=== PATIENT | female | born 1990 ===

== ENCOUNTER 2017-01-22 21:16 | Emergency (ER) | payer SELFPAY ==
[2017-01-22 22:03] VITALS: BMI 33.2
[2017-01-22 22:15] VITALS: TEMP 98.2
--- NOTE | 2017-01-22 23:04 | ED PDOC ---
Arrival/HPI - General Chief Complaint: Abnormal Skin Integrity Time Seen by Provider: 01/22/17 22:58 Historian: Patient - History of Present Illness Narrative History of Present Illness (Text): 01/22/17 23:01 Susanne Mistry is a 26 year old female who presents to the emergency department complaining of diffuse erythematous, itchy hives since 3 pm today. States that she had multiple insect bites today, and is unsure if symptoms are related to that. No new foods, or new lotion. Denies any fever, chills, chest pain, throat fullness, difficulty swallowing, difficulty breathing, or any other complaints at this time. Time/Duration: Other (3pm today ) Symptom Onset: Gradual Severity Level: Mild Activities at Onset: Light Past Medical History - Provider Review Nursing Documentation Reviewed: Yes - Infectious Disease Hx of Infectious Diseases: None - Past Medical History Past Medical History: No Previous - Integumentary Hx Eczema: Yes - Psychiatric Hx Anxiety: Yes Hx Depression: No Hx Substance Use: No - Past Surgical History Past Surgical History: No Previous - Surgical History Other/Comment: MIGRAINE - Anesthesia Hx Anesthesia: No Hx Anesthesia Reactions: No Hx Malignant Hyperthermia: No - Suicidal Assessment Feels Threatened In Home Enviroment: No Family/Social History - Physician Review Nursing Documentation Reviewed: Yes Family/Social History: No Known Family HX Smoking Status: Heavy Smoker > 10 Cigarettes Daily Hx Alcohol Use: Yes Hx Substance Use: No Hx Substance Use Treatment: No Allergies/Home Meds Allergies/Adverse Reactions: Allergies Penicillins Allergy (Verified 10/26/15 18:54) RASH Review of Systems - Physician Review All systems were reviewed & negative as marked: Yes - Review of Systems Constitutional: Normal. absent: Fatigue, Fevers Respiratory: Normal. absent: SOB, Cough, Sputum Cardiovascular: Normal. absent: Chest Pain, Palpitations Gastrointestinal: Normal. absent: Abdominal Pain, Diarrhea, Nausea, Vomiting Skin: Rash (diffuse erythematous, itchy hives ) Neurological: Normal Physical Exam Vital Signs Reviewed: Yes Vital Signs Temp Pulse Resp BP Pulse Ox 01/22/17 23:22 82 17 115/70 99 01/22/17 21:17 98.2 F 86 18 112/61 100 Temperature: Afebrile Blood Pressure: Normal Pulse: Regular Respiratory Rate: Normal Appearance: Positive for: Well-Appearing, Non-Toxic, Comfortable Pain Distress: None Mental Status: Positive for: Alert and Oriented X 3 - Systems Exam Head: Present: Atraumatic, Normocephalic Pupils: Present: PERRL Conjunctiva: Present: Normal Mouth: Present: Moist Mucous Membranes Pharnyx: Present: Normal. No: ERYTHEMA, EXUDATE, TONSILS ENLARGED Respiratory/Chest: Present: Clear to Auscultation, Good Air Exchange. No: Respiratory Distress, Accessory Muscle Use Cardiovascular: Present: Regular Rate and Rhythm, Normal S1, S2. No: Murmurs Abdomen: Present: Normal Bowel Sounds. No: Tenderness, Distention, Peritoneal Signs Upper Extremity: Present: Normal Inspection. No: Cyanosis, Edema Lower Extremity: Present: Normal Inspection. No: Edema Neurological: Present: GCS=15, CN II-XII Intact, Speech Normal, Motor Func Grossly Intact, Normal Sensory Function Skin: Present: Warm, Dry, Rashes (erythematous urticaria ), Normal Color Psychiatric: Present: Alert, Oriented x 3, Normal Insight, Normal Concentration Medical Decision Making ED Course and Treatment: 01/22/17 23:05 Impression: A 26 year old female who presents to the emergency department complaining of diffuse hives since 3 pm today. Differential diagnosis : urticaria, allergic reaction, contact dermatitis Plan: -- Benadryl -- Pepcid -- Prednisone -- Reassess and disposition Progress Notes: On reevaluation, patient is resting comfortably in bed in no acute distress, patient is speaking in full sentences in no respiratory distress. Patient informed of likely diagnosis of urticaria versus possible allergic reaction. Patient advised to follow up with her PMD and was given referral to a crime scene examiner. Prescription for Benadryl, Pepcid and prednisone provided to the patient and advised to take medication as prescribed. Otherwise was instructed to return to the emergency room at any time for any new or worsening symptoms. Patient states she fully agrees with and understands discharge instructions. States that she agrees with the plan and disposition. Verbalized and repeated discharge instructions and plan. I have given the patient opportunity to ask any additional questions. - Medication Orders Current Medication Orders: Discontinued Medications Diphenhydramine HCl (Benadryl) 50 mg PO STAT STA Stop: 01/22/17 22:59 Last Admin: 01/22/17 23:09 Dose: 50 mg Famotidine (Pepcid) 40 mg PO STAT STA Stop: 01/22/17 22:59 Last Admin: 01/22/17 23:10 Dose: 40 mg Prednisone (Prednisone Tab) 60 mg PO STAT STA Stop: 01/22/17 22:59 Last Admin: 01/22/17 23:09 Dose: 60 mg - PA / QUALITY ASSURANCE MONITOR FINAL / Resident Statement / has reviewed & agrees with the documentation as recorded. Disposition/Present on Arrival - Present on Arrival Any Indicators Present on Arrival: No History of DVT/PE: No History of Uncontrolled Diabetes: No Urinary Catheter: No History of Decub. Ulcer: No History Surgical Site Infection Following: None - Disposition Have Diagnosis and Disposition been Completed?: Yes Diagnosis: Urticaria Disposition: HOME/ ROUTINE Disposition Time: 23:30 Patient Plan: Discharge Condition: STABLE Discharge Instructions (ExitCare): Urticaria (ED) Print Language: SWEDISH Additional Instructions: Thank you for letting us take care of you today. You were treated for urticaria. The emergency medical care you received today was directed at your acute symptoms. If you were prescribed any medication, please fill it and take as directed. It may take several days for your symptoms to resolve. Return to the Emergency Department if your symptoms worsen, do not improve, or if you have any other problems. Please contact your doctor in 2 days for re-evaluation and follow up. Bring any paperwork you were given at discharge with you along with any medications you are taking to your follow up visit. Our treatment cannot replace ongoing medical care by a primary care provider (PCP) outside of the emergency department. Thank you for allowing the [facility] team to be part of your care today. Prescriptions: DiphenhydrAMINE [Benadryl] 50 mg PO TID #30 cap Famotidine [Pepcid] 40 mg PO DAILY #20 tablet predniSONE [predniSONE Tab] 40 mg PO DAILY #8 tab Referrals: Mauri Love MD [Staff Provider] - Follow up with primary PCP,NO [Primary Care Provider] - Follow up with primary Forms: [employer] (Guinean), WORK NOTE
[2017-01-22 23:23] VITALS: BP 115/70; PULSE 82; RESP 17; O2SAT 99
== END 2017-01-22 23:23 | disposition home or self-care (01) ==
LOC: ED 21:16
DX: L50.9 Urticaria, unspecified (principal)

== ENCOUNTER 2017-05-05 22:11 | Observation (INO) | payer MEDICAID, OTHER ==
[2017-05-05 22:11] VITALS: BMI 33.2
[2017-05-05] MEDS ORDERED: Sodium Chloride 0.9% 1,000 ML IV STA (22:56)
--- NOTE | 2017-05-05 23:01 | ED PDOC ---
Arrival/HPI - General Chief Complaint: Back Pain Time Seen by Provider: 05/05/17 22:35 Historian: Patient - History of Present Illness Narrative History of Present Illness (Text): 05/05/17 22:51 Susanne Mistry is a 26 year old female who presents to the emergency department complaining of worsening symptoms of burning while urination, urinary frequency, bilateral back pain and flank pain for one week. Patient states that he experienced associated chills, some shortness of breath, some pink urine, and white vaginal discharge. Patient states that she has taken Monistat for symptoms to no relief. Patient denies any nausea, vomiting, diarrhea, or any other complaints at this time. Patient states that her last menstrual period was 04/14/17. PMD: none Time/Duration: 1 week Symptom Onset: Gradual Symptom Course: Worsening Severity Level: Mild Activities at Onset: Light Context: Home Past Medical History - Provider Review Nursing Documentation Reviewed: Yes - Infectious Disease Hx of Infectious Diseases: None - Past Medical History Past Medical History: No Previous - Integumentary Hx Eczema: Yes - Psychiatric Hx Anxiety: Yes Hx Depression: No Hx Substance Use: No - Past Surgical History Past Surgical History: No Previous - Surgical History Other/Comment: MIGRAINE - Anesthesia Hx Anesthesia: No Hx Anesthesia Reactions: No Hx Malignant Hyperthermia: No - Suicidal Assessment Feels Threatened In Home Enviroment: No Family/Social History - Physician Review Nursing Documentation Reviewed: Yes Family/Social History: No Known Family HX Smoking Status: Heavy Smoker > 10 Cigarettes Daily Hx Alcohol Use: Yes Hx Substance Use: No Hx Substance Use Treatment: No Allergies/Home Meds Allergies/Adverse Reactions: Allergies Penicillins Allergy (Verified 10/26/15 18:54) RASH Home Medications: Home Meds Medication Instructions Recorded Confirmed No Known Home Med 05/05/17 05/05/17 Review of Systems - Physician Review All systems were reviewed & negative as marked: Yes - Review of Systems Constitutional: absent: Fevers, Night Sweats Eyes: absent: Vision Changes ENT: absent: Hearing Changes Respiratory: SOB. absent: Cough Cardiovascular: absent: Chest Pain Gastrointestinal: absent: Abdominal Pain Genitourinary Female: Dysuria (burning whil urination), Frequency, Hematuria, Vaginal Discharge Musculoskeletal: Back Pain (bilateral flank pain) Skin: absent: Rash, Pruritis Neurological: absent: Headache, Dizziness Endocrine: absent: Diaphoresis Hemo/Lymphatic: absent: Adenopathy Psychiatric: absent: Depression Physical Exam Vital Signs Reviewed: Yes Vital Signs Temp Pulse Resp BP Pulse Ox 05/05/17 22:35 98.4 F 78 18 123/70 98 Temperature: Afebrile Blood Pressure: Normal Pulse: Regular Respiratory Rate: Normal Appearance: Positive for: Well-Appearing, Non-Toxic, Comfortable Pain Distress: None Mental Status: Positive for: Alert and Oriented X 3 - Systems Exam Head: Present: Atraumatic, Normocephalic Pupils: Present: PERRL Conjunctiva: Present: Normal Mouth: Present: Moist Mucous Membranes Pharnyx: Present: Normal. No: ERYTHEMA, EXUDATE Neck: Present: Normal Range of Motion Respiratory/Chest: Present: Clear to Auscultation, Good Air Exchange. No: Respiratory Distress, Accessory Muscle Use Cardiovascular: Present: Regular Rate and Rhythm, Normal S1, S2. No: Murmurs Abdomen: Present: Normal Bowel Sounds. No: Tenderness, Distention, Peritoneal Signs Back: Present: Normal Inspection. No: CVA Tenderness, Midline Tenderness Upper Extremity: Present: Normal Inspection. No: Cyanosis, Edema Lower Extremity: Present: Normal Inspection. No: Edema Neurological: Present: GCS=15, CN II-XII Intact, Speech Normal Skin: Present: Warm, Dry, Normal Color. No: Rashes Psychiatric: Present: Alert, Oriented x 3, Normal Insight, Normal Concentration Medical Decision Making ED Course and Treatment: 05/05/17 23:25 Impression: 26 year old female complaining of worsening symptoms of burning while urination , urinary frequency, bilateral flank pain for one week. Differential Diagnosis included but are not limited to: Plan: -- Abdomen and Pelvis CT w/ contrast -- Labs -- Toradol, Rocephin, and IV fluids -- Reassess and disposition Prior Visits: Notes and results from previous visits were reviewed. Patient was last seen in the emergency department on 01/22/2017 for diffuse erythematous, itchy hives for a few hours. Patient was discharged home. Progress Notes: 05/06/17 00:58 CT Abdomen and Pelvis Without Intravenous Contrast Creator : JUAN HAKNS FINDINGS: Lower thorax: The bilateral lung bases are clear. ABDOMEN: Liver: The liver is enlarged and demonstrates diffuse fatty infiltration. Gallbladder and bile ducts: No acute finding. No calcified stones. No intra-extrahepatic biliary ductal dilation. Pancreas: Limited evaluation secondary to the lack of intravenous contrast. Spleen: The spleen is markedly enlarged. Adrenals: No acute findings. Kidneys and ureters: No obstructing stones. No hydronephrosis. PELVIS: Bladder: No acute findings. Reproductive: No acute findings. Appendix: The appendix is of normal caliber (series 2, image 138; series 601 , image 54). ABDOMEN and PELVIS: Stomach and bowel: No acute findings. Peritoneum: No acute findings. Lymph nodes: Extensive retroperitoneal and mesenteric lymphadenopathy. Minimally enlarged lymph nodes are also identified in the pelvis. Vasculature: No aortic aneurysm. Bones: No acute fracture. IMPRESSION: No obstructive uropathy. Marked splenic enlargement along with retroperitoneal and mesenteric lymphadenopathy - findings worrisome for (possibly) a systemic lymphomatous disease, for which clinical correlation is needed. Fatty infiltration of the enlarged liver. 05/06/17 01:41 Patient with UTI and back pain. Blood work is unremarkable with urine showing UTI; given back pain - concern for possible renal colic. CT a/p ordered is showing findings concerning for possible lymphoma - will place patient on observation on med/surg for further eval and treatment. Discussed with Dr. Walden. - Lab Interpretations Lab Results: 05/05/17 23:30 05/05/17 23:30 Lab Results 05/05/17 23:30: Sodium 142, Potassium 4.0, Chloride 104, Carbon Dioxide 28, Anion Gap 14, BUN 18, Creatinine 0.8, Est GFR ( Amer) > 60, Est GFR (Non- Af Amer) > 60, Random Glucose 106, Calcium 9.3, Total Bilirubin 0.7, AST 30, ALT 34, Alkaline Phosphatase 50, Total Protein 8.8 H, Albumin 4.4, Globulin 4.4 , Albumin/Globulin Ratio 1.0 L, Lipase 69 05/05/17 23:30: WBC 5.4, RBC 3.81, Hgb 11.1 L, Hct 33.7 L, MCV 88.5, MCH 29.1, MCHC 32.9, RDW 13.6, Plt Count 148, MPV 10.3, Gran % 56.2, Lymph % (Auto) 29.2, Bates % (Auto) 10.1 H, Eos % (Auto) 3.9, Baso % (Auto) 0.6, Gran # 3.06, Lymph # 1.6, Bates # 0.6, Eos # 0.2, Baso # 0.03 05/05/17 22:44: Urine Color Light yellow, Urine Appearance Cloudy, Urine pH 6.0 , Ur Specific [place] 1.015, Urine Protein Trace H, Urine Glucose (UA) Negative , Urine Ketones Trace H, Urine Blood Small H, Urine Nitrate Negative, Urine Bilirubin Negative, Urine Urobilinogen 1.0 H, Ur Leukocyte Esterase Large H, Urine RBC 1 - 3, Urine WBC Tntc, Ur Epithelial Cells 1 - 3, Urine Bacteria Few I have reviewed the lab results: Yes - RAD Interpretation Radiology Orders: 05/05/17 22:55 ABD & PELVIS W/O PO OR IV CONT [CT] Stat - Medication Orders Current Medication Orders: Discontinued Medications Sodium Chloride (Sodium Chloride 0.9%) 1,000 mls @ 999 mls/hr IV .Q1H1M STA Stop: 05/05/17 23:56 Last Admin: 05/05/17 23:40 Dose: 999 mls/hr eMAR Start Stop Document 05/05/17 23:40 RON (Rec: 05/05/17 23:40 RON [id number]) Intravenous Solution Start Date 05/05/17 Start Time 23:40 Ceftriaxone Sodium (Rocephin 1 Gram Ivpb) 1 gm in 100 mls @ 200 mls/hr IV ONCE STA PRN Reason: Protocol Stop: 05/05/17 23:33 Last Admin: 05/06/17 01:18 Dose: 200 mls/hr eMAR Start Stop Document 05/06/17 01:18 RON (Rec: 05/06/17 01:18 RON [id number]) Intravenous Solution Start Date 05/06/17 Start Time 01:18 End Date 05/06/17 End time 01:48 Total Infusion Time 30 Ketorolac Tromethamine (Toradol) 30 mg IVP STAT STA Stop: 05/05/17 22:57 Last Admin: 05/05/17 23:40 Dose: 30 mg MAR Pain Assessment Document 05/05/17 23:40 RON (Rec: 05/05/17 23:40 RON [id number]) Pain Reassessment Is this a pain reassessment? No IVP Administration Document 05/05/17 23:40 RON (Rec: 05/05/17 23:40 RON [id number]) Charges for Administration # of IVP Administrations 1 Ondansetron HCl (Zofran Inj) 4 mg IVP STAT STA Stop: 05/06/17 00:13 Last Admin: 05/06/17 00:15 Dose: 4 mg IVP Administration Document 05/06/17 00:15 RON (Rec: 05/06/17 00:15 RON [id number]) Charges for Administration # of IVP Administrations 1 - Scribe Statement The provider has reviewed the documentation as recorded by the Valorieibe Savannah Presley Provider Scribe Attestation: All medical record entries made by the Valorieibe were at my direction and personally dictated by me. I have reviewed the chart and agree that the record accurately reflects my personal performance of the history, physical exam, medical decision making, and the department course for this patient. I have also personally directed, reviewed, and agree with the discharge instructions and disposition. Disposition/Present on Arrival - Present on Arrival Any Indicators Present on Arrival: No History of DVT/PE: No History of Uncontrolled Diabetes: No Urinary Catheter: No History of Decub. Ulcer: No History Surgical Site Infection Following: None - Disposition Have Diagnosis and Disposition been Completed?: Yes Diagnosis: Back pain, Urinary tract infection Disposition: HOSPITALIZED Disposition Time: 12:52 Patient Plan: Observation Condition: FAIR
[2017-05-05 23:02] LABS: URINE BILIRUBIN NEGATIVE (NEGATIVE); URINE BLOOD SMALL (NEGATIVE); URINE GLUCOSE (UA) NEGATIVE (NEGATIVE); URINE KETONE TRACE mg/dL (NEGATIVE); URINE LEUKOCYTE ESTERASE LARGE Leu/uL (NEGATIVE); URINE PROTEIN TRACE mg/dL (<30 mg/dL)
[2017-05-05 23:03] LABS: URINE APPEARANCE CLOUDY (CLEAR); URINE COLOR LIGHT YELLOW (YELLOW)
[2017-05-05] MEDS ORDERED: cefTRIAXone 1 gm 1 GM/100 ML BAG IV STA (23:04)
[2017-05-05 23:05] LABS: URINE WBC TNTC /hpf (0-6)
[2017-05-05 23:06] LABS: URINE BACTERIA FEW (NEG)
[2017-05-05 23:44] LABS: BASO # 0.03 K/mm3 (0.0-2.0); BASO % 0.6 % (0.0-3.0); EOS # 0.2 (0.0-0.7); EOS % 3.9 % (1.5-5.0); GRAN # 3.06 (1.4-6.5); GRAN % 56.2 % (50.0-68.0); HEMATOCRIT 33.7 % (36.0-48.0); LYMPH # 1.6 (1.2-3.4); LYMPH % 29.2 % (22.0-35.0); MEAN CELL VOLUME 88.5 fl (80.0-105.0); MEAN CORPUSCULAR HEMOGLOBIN 29.1 pg (25.0-35.0); MEAN CORPUSCULAR HGB CONC 32.9 g/dl (31.0-37.0); MEAN PLATELET VOLUME 10.3 fl (7.0-11.0); MONO # 0.6 (0.1-0.6); MONO % 10.1 % (1.0-6.0); RED CELL DISTRIBUTION WIDTH 13.6 % (11.5-14.5); WHITE BLOOD COUNT 5.4 10^3/ul (4.5-11.0)
[2017-05-05 23:58] LABS: ALKALINE PHOSPHATASE 50 U/L (38-126); ALT/SGPT 34 U/L (7-56); AST/SGOT 30 U/L (14-36); BILIRUBIN,TOTAL 0.7 mg/dL (0.2-1.3); BLOOD UREA NITROGEN 18 mg/dL (7-21); CALCIUM 9.3 mg/dL (8.4-10.5); CARBON DIOXIDE 28 mmol/L (21-33); CHLORIDE 104 mmol/L (95-110); GFR AFRICAN-AMERICAN > 60; GLUCOSE,RANDOM 106 mg/dL (70-110); LIPASE 69 U/L (23-300); SODIUM 142 mmol/L (132-148); TOTAL PROTEIN 8.8 g/dL (5.8-8.3)
--- NOTE | 2017-05-06 00:25 | CT ---
EXAM: CT Abdomen and Pelvis Without Intravenous Contrast CLINICAL HISTORY: 26 years old, female; Pain; Abdominal pain; Generalized; Additional info: Hematuria, b/l flank pain TECHNIQUE: Axial computed tomography images of the abdomen and pelvis without intravenous contrast. All CT scans at this facility use one or more dose reduction techniques, viz.: automated exposure control; ma/kV adjustment per patient size (including targeted exams where dose is matched to indication; i.e. head); or iterative reconstruction technique. Coronal and sagittal reformatted images were created and reviewed. COMPARISON: No relevant prior studies available. FINDINGS: Lower thorax: The bilateral lung bases are clear. ABDOMEN: Liver: The liver is enlarged and demonstrates diffuse fatty infiltration. Gallbladder and bile ducts: No acute finding. No calcified stones. No intra-extrahepatic biliary ductal dilation. Pancreas: Limited evaluation secondary to the lack of intravenous contrast. Spleen: The spleen is markedly enlarged. Adrenals: No acute findings. Kidneys and ureters: No obstructing stones. No hydronephrosis. PELVIS: Bladder: No acute findings. Reproductive: No acute findings. Appendix: The appendix is of normal caliber (series 2, image 138; series 601, image 54). ABDOMEN and PELVIS: Stomach and bowel: No acute findings. Peritoneum: No acute findings. Lymph nodes: Extensive retroperitoneal and mesenteric lymphadenopathy. Minimally enlarged lymph nodes are also identified in the pelvis. Vasculature: No aortic aneurysm. Bones: No acute fracture. IMPRESSION: No obstructive uropathy. Marked splenic enlargement along with retroperitoneal and mesenteric lymphadenopathy - findings worrisome for (possibly) a systemic lymphomatous disease, for which clinical correlation is needed. Fatty infiltration of the enlarged liver.
[2017-05-06] MEDS ORDERED: Sodium Chloride 0.9% 1,000 ML IV SCH (01:45)
--- NOTE | 2017-05-06 01:52 | CP.PCM.HP ---
<Lacy Dalton - Last Filed: 05/06/17 03:05> History of Present Illness - History of Present Illness History of Present Illness: CC: "I'm having back discomfort" HPI: Patient is a 26 year old female with no significant past medical history presents to the ED for back discomfort for the past week. Back discomfort is worse at night, denies radiation. 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 Patient also states that she was experiencing dysuria and increased urinary frequency as well. For the past two days she noticed her urine was pink. States that this has never happened to her before. She admits to using monistat with no improvement in symptoms. Offers no other complaints at this time. Denies fevers, chills, headaches, dizziness, cp, palpitations, sob , abdominal pain, changes in bowel habits. Denies any change in appetite or recent weight loss. 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 [employer] Hx: LMP 04/14/17; [facility] 16 x regular x 3 days Review of Systems - Constitutional Constitutional: absent: Chills, Fever - EENT Eyes: absent: Blurred Vision, Change in Vision Ears: absent: Dizziness - Cardiovascular Cardiovascular: absent: Chest Pain, Dyspnea, Lightheadedness, Palpitations - Respiratory Respiratory: absent: Cough, Wheezing - Gastrointestinal Gastrointestinal: absent: Abdominal Pain, Constipation, Diarrhea, Nausea, Vomiting - Genitourinary Genitourinary: Dysuria, Hematuria, Urinary Frequency - Musculoskeletal Musculoskeletal: Back Pain. absent: Numbness, Tingling - Neurological Neurological: absent: Dizziness, Numbness, Headaches, Tremor Past Patient History - Infectious Disease Hx of Infectious Diseases: None - Past Social History Smoking Status: Heavy Smoker > 10 Cigarettes Daily - INTEGUMENTARY Hx Eczema: Yes - PSYCHIATRIC Hx Anxiety: Yes Hx Depression: No Hx Substance Use: No - SURGICAL HISTORY Other/Comment: MIGRAINE - ANESTHESIA Hx Anesthesia: No Hx Anesthesia Reactions: No Hx Malignant Hyperthermia: No Meds Allergies/Adverse Reactions: Allergies Allergy/AdvReac Type Severity Reaction Status Date / Time Penicillins Allergy RASH Verified 10/26/15 18:54 Physical Exam - Constitutional Appears: Well, Non-toxic, No Acute Distress - Head Exam Head Exam: ATRAUMATIC, NORMAL INSPECTION, NORMOCEPHALIC - Eye Exam Eye Exam: EOMI, Normal appearance Pupil Exam: NORMAL ACCOMODATION - ENT Exam ENT Exam: Mucous Membranes Moist - Neck Exam Neck exam: Positive for: Full Rom, Normal Inspection. Negative for: Lymphadenopathy, Thyromegaly - Respiratory Exam Respiratory Exam: Clear to Auscultation Bilateral, NORMAL BREATHING PATTERN. absent: Rales, Rhonchi, Wheezes - Cardiovascular Exam Cardiovascular Exam: REGULAR RHYTHM, +S1, +S2 - GI/Abdominal Exam GI & Abdominal Exam: Normal Bowel Sounds, Soft. absent: Guarding, Rebound, Rigid, Tenderness - Extremities Exam Extremities exam: Positive for: full ROM, normal inspection, pedal pulses present. Negative for: calf tenderness - Back Exam Back exam: FULL ROM, NORMAL INSPECTION. absent: CVA tenderness (L), CVA tenderness (R), tenderness - Neurological Exam Neurological exam: Alert, Normal Gait, Oriented x3 - Psychiatric Exam Psychiatric exam: Anxious, Normal Mood - Skin Skin Exam: Dry, Normal Color, Warm Results - Vital Signs Recent Vital Signs: Last Vital Signs Temp 98.4 F 05/05/17 22:35 Pulse 78 05/05/17 22:35 Resp 18 05/05/17 22:35 BP 123/70 05/05/17 22:35 Pulse Ox 98 05/05/17 22:35 - Labs Result Diagrams: 05/05/17 23:30 05/05/17 23:30 Assessment & Plan - Assessment and Plan (Free Text) Assessment: Patient is a 26 year old female with no significant past medical history presents to the ED for back discomfort with increased urinary frequency and dysuria/hematuria. Plan: 1. Retroperitoneal, Mesenteric Lymphadenopathy with organomegaly -Stable, afebrile -Place on observation -CT abd/pelvis: marked splenic enlargement with retroperitoneal, mesenteric lymphadenopathy worrisome for systemic lymphomatous disease; fatty infiltration of the enlarged liver ( see full report) -Denies any recent weight loss or change in appetite -Heme/onc consulted, f/u recommendations 2. Urinary Tract Infection -No leukocytosis on admission -UA showing large leukocyte esterase, small blood, few bacteria -F/U urine cultures -Abx: Rocephin -Fluids: NS @ 125 cc/hr -Diet: regular -Motrin prn pain -Continue to monitor symptoms 3. Anemia -Hgb 11.1 (appears at baseline) -Will continue to monitor GI/DVT ppx -Protonix 40mg PO -SCDs Plan d/w attending, Dr Walden <Jenna Walden - Last Filed: 05/06/17 05:47> Present on Admission - Present on Admission Any Indicators Present on Admission: No History of DVT/PE: No History of Uncontrolled Diabetes: No Urinary Catheter: No Decubitus Ulcer Present: No History Surgical Site Infection Following: None Results - Vital Signs Recent Vital Signs: Last Vital Signs Temp 98.4 F 05/06/17 02:53 Pulse 76 05/06/17 02:53 Resp 20 05/06/17 02:53 BP 103/58 L 05/06/17 02:53 Pulse Ox 98 05/05/17 22:35 - Labs Result Diagrams: 05/05/17 23:30 05/05/17 23:30 Attending/Attestation - Attestation I have personally seen and examined this patient.: Yes I have fully participated in the care of the patient.: Yes I have reviewed all pertinent clinical information: Yes Notes (Text): 05/06/17 05:01 Patient was seen when she was in bed # 16 in the ER. Agree with history, physical examination, assessment and plan. Following should be added. This 26 year old woman was admitted with dysuria, frequency, b/l flank pain, b/l lower back pain, cloudy urine,blood in urine,borderline anemia, retroperitoneal and mesentric lymphadenopathy, spleenomegaly. Has PMH of anxiety, obesity, eczema,migraine,hepatitis A, smoking, alcohol use , marijuana use, family history of kidney cancer, (F),DM and HTN,Alzheimer's .
[2017-05-06] MEDS: Pantoprazole 40 mg EC Tab PO SCH (06:56)
[2017-05-06 07:20] LABS: BASO # 0.02 K/mm3 (0.0-2.0); BASO % 0.4 % (0.0-3.0); EOS # 0.2 (0.0-0.7); GRAN # 2.58 (1.4-6.5); GRAN % 49.4 % (50.0-68.0); HEMATOCRIT 32.9 % (36.0-48.0); LYMPH # 1.8 (1.2-3.4); LYMPH % 33.8 % (22.0-35.0); MEAN CELL VOLUME 88.7 fl (80.0-105.0); MEAN CORPUSCULAR HEMOGLOBIN 28.8 pg (25.0-35.0); MEAN CORPUSCULAR HGB CONC 32.5 g/dl (31.0-37.0); MEAN PLATELET VOLUME 11.5 fl (7.0-11.0); MONO # 0.7 (0.1-0.6); MONO % 12.4 % (1.0-6.0); RED CELL DISTRIBUTION WIDTH 13.7 % (11.5-14.5); WHITE BLOOD COUNT 5.2 10^3/ul (4.5-11.0)
[2017-05-06 07:31] LABS: ALKALINE PHOSPHATASE 45 U/L (38-126); ALT/SGPT 21 U/L (7-56); AST/SGOT 23 U/L (14-36); BILIRUBIN,TOTAL 0.6 mg/dL (0.2-1.3); BLOOD UREA NITROGEN 19 mg/dL (7-21); CARBON DIOXIDE 25 mmol/L (21-33); CHLORIDE 110 mmol/L (98-107); GFR AFRICAN-AMERICAN > 60; GLUCOSE,RANDOM 111 mg/dL (70-110); POTASSIUM 4.2 mmol/L (3.6-5.0); SODIUM 144 mmol/L (132-148); TOTAL PROTEIN 7.8 g/dL (5.8-8.3)
[2017-05-06] MEDS ORDERED: Ciprofloxacin 400mg/200ml D5W 400 MG/200 ML BAG IVPB SCH (10:00)
[2017-05-06] MEDS: cefTRIAXone 1 gm 1 GM/100 ML BAG IVPB SCH (11:43)
[2017-05-06] MEDS: Sodium Chloride 0.9% 1,000 ML IV SCH ×2 (13:55→21:49)
--- NOTE | 2017-05-06 20:13 | CP.PCM.CON ---
History of Present Illness - History of Present Illness History of Present Illness: 26 year old female with a history of eczema, admitted with flank pain, found to have retroperitoneal lymphadenopathy and splenomegaly. The patient denies weight loss, fatigue, and night sweats. She has had some urinary frequency associated with her bilateral flank pain. She denies fevers and chills. Past medical history: Eczema Past surgical history: None Family history: Father had kidney cancer Social history: Smoes 1ppd x 7 years, denies alcohol, and illicit drug use. Allergies: Penicillins Review of systems: All remaining review of systems including HEENT, cardiovascular, respiratory, gastrointestinal, genitourinary, musculoskeletal, dermatologic, neurologic, and psychiatric are negative unless mentioned in the HPI. Past Patient History - Infectious Disease Hx of Infectious Diseases: None - Past Social History Smoking Status: Heavy Smoker > 10 Cigarettes Daily - INTEGUMENTARY Hx Eczema: Yes - MUSCULOSKELETAL/RHEUMATOLOGICAL Hx Falls: No - PSYCHIATRIC Hx Anxiety: Yes Hx Depression: No Hx Substance Use: No - SURGICAL HISTORY Other/Comment: MIGRAINE - ANESTHESIA Hx Anesthesia: No Hx Anesthesia Reactions: No Hx Malignant Hyperthermia: No Meds Allergies/Adverse Reactions: Allergies Allergy/AdvReac Type Severity Reaction Status Date / Time Penicillins Allergy RASH Verified 10/26/15 18:54 - Medications Medications: Current Medications Acetaminophen (Tylenol 325mg Tab) 650 mg PO Q6H PRN PRN Reason: Fever >100.4 F Ceftriaxone Sodium (Rocephin 1 Gram Ivpb) 1 gm in 100 mls @ 100 mls/hr IVPB DAILY [facility] PRN Reason: Protocol Last Admin: 05/06/17 11:43 Dose: 100 mls/hr Sodium Chloride (Sodium Chloride 0.9%) 1,000 mls @ 75 mls/hr IV .[id number] [facility] Last Admin: 05/06/17 13:55 Dose: 75 mls/hr Ibuprofen (Motrin Tab) 600 mg PO Q6H PRN PRN Reason: Pain, Mild (1-3) Nicotine (Nicoderm Cq) 1 patch TD DAILY [facility] Last Admin: 05/06/17 17:32 Dose: 1 patch Pantoprazole Sodium (Protonix Ec Tab) 40 mg PO 0600 [facility] Last Admin: 05/06/17 06:56 Dose: 40 mg Physical Exam - Head Exam Head Exam: ATRAUMATIC - Eye Exam Eye Exam: Normal appearance - ENT Exam ENT Exam: Mucous Membranes Dry - Respiratory Exam Respiratory Exam: Clear to Auscultation Bilateral - Cardiovascular Exam Cardiovascular Exam: +S1, +S2 - GI/Abdominal Exam GI & Abdominal Exam: Normal Bowel Sounds - Extremities Exam Extremities exam: Positive for: normal inspection - Neurological Exam Neurological exam: Oriented x3 - Psychiatric Exam Psychiatric exam: Normal Affect, Normal Mood - Skin Skin Exam: Warm Results - Vital Signs Recent Vital Signs: Last Vital Signs Temp 98.1 F 05/06/17 16:00 Pulse 70 05/06/17 16:00 Resp 20 05/06/17 16:00 BP 107/68 05/06/17 16:00 Pulse Ox 99 05/06/17 16:00 - Labs Result Diagrams: 05/07/17 06:45 05/07/17 06:45 Labs: Laboratory Results - last 24 hr 05/06/17 05/06/17 06:40 06:40 WBC 5.2 RBC 3.71 Hgb 10.7 L Hct 32.9 L MCV 88.7 MCH 28.8 MCHC 32.5 RDW 13.7 Plt Count 153 MPV 11.5 H Gran % 49.4 L Lymph % (Auto) 33.8 [facility] % (Auto) 12.4 H Eos % (Auto) 4.0 Baso % (Auto) 0.4 Gran # 2.58 Lymph # 1.8 [facility] # 0.7 H Eos # 0.2 Baso # 0.02 Sodium 144 Potassium 4.2 Chloride 110 H Carbon Dioxide 25 Anion Gap 13 BUN 19 Creatinine 0.7 Est GFR ( Amer) > 60 Est GFR (Non-Af Amer) > 60 Random Glucose 111 H Calcium 9.0 Total Bilirubin 0.6 AST 23 ALT 21 Alkaline Phosphatase 45 Total Protein 7.8 Albumin 3.9 Globulin 3.9 Albumin/Globulin Ratio 1.0 L Assessment & Plan (1) Retroperitoneal lymphadenopathy Assessment and Plan: Agree with IR guided core biopsy for further evaluation Status: Acute (2) Splenomegaly Assessment and Plan: for LN biopsy ? lymphoproliferative disorder Status: Acute (3) Anemia Assessment and Plan: will check ferritin, retic count, b12, folate to further characterize Thank you for this intersting consult. Status: Acute
[2017-05-07] MEDS: Pantoprazole 40 mg EC Tab PO SCH (05:40)
[2017-05-07 07:14] LABS: ALKALINE PHOSPHATASE 39 U/L (38-126); ALT/SGPT 23 U/L (7-56); AST/SGOT 15 U/L (14-36); BILIRUBIN,TOTAL 0.6 mg/dL (0.2-1.3); BLOOD UREA NITROGEN 11 mg/dL (7-21); CALCIUM 8.7 mg/dL (8.4-10.5); CARBON DIOXIDE 25 mmol/L (21-33); CHLORIDE 108 mmol/L (98-107); GFR AFRICAN-AMERICAN > 60; GLUCOSE,RANDOM 96 mg/dL (70-110); SODIUM 142 mmol/L (132-148); TOTAL PROTEIN 7.2 g/dL (5.8-8.3)
[2017-05-07 07:18] LABS: BASO # 0.02 K/mm3 (0.0-2.0); BASO % 0.4 % (0.0-3.0); EOS # 0.2 (0.0-0.7); EOS % 3.9 % (1.5-5.0); GRAN # 2.58 (1.4-6.5); GRAN % 50.7 % (50.0-68.0); HEMATOCRIT 30.8 % (36.0-48.0); LYMPH # 1.7 (1.2-3.4); LYMPH % 33.8 % (22.0-35.0); MEAN CELL VOLUME 88.3 fl (80.0-105.0); MEAN CORPUSCULAR HEMOGLOBIN 28.7 pg (25.0-35.0); MEAN CORPUSCULAR HGB CONC 32.5 g/dl (31.0-37.0); MONO # 0.6 (0.1-0.6); MONO % 11.2 % (1.0-6.0); RED CELL DISTRIBUTION WIDTH 13.6 % (11.5-14.5); WHITE BLOOD COUNT 5.1 10^3/ul (4.5-11.0)
[2017-05-07 08:30] LABS: INR 1.2 (0.93-1.08); PARTIAL THROMBOPLASTIN TIME 30.8 Seconds (25.1-36.5)
--- NOTE | 2017-05-07 09:20 | CP.PCM.PN ---
<Sumaya Sandoval - Last Filed: 05/07/17 12:38> Subjective - Date & Time of Evaluation Date of Evaluation: 05/07/17 Time of Evaluation: 07:00 - Subjective Subjective: Dr Darren Hawthorne Pt was seen and examined at bedside. Pt has no acute complaints at this time. No acute or adverse events overnight as per nursing staff. Pt is tolerating diet , ambulating, and moving bowels and bladder regularly. Pt is for lymph node bx today scheduled for this afternoon by IR. Pt is agreeable to procedure, and confers understanding. Pt denied fever, chills, lightheadedness, headaches, sob , chest pains, abdominal pains, n/v/d/c or urinary symptoms at this time. Objective - Vital Signs/Intake and Output Vital Signs (last 24 hours): Temp Pulse Resp BP Pulse Ox 98.0 F 87 17 101/61 99 05/07/17 07:27 05/07/17 07:27 05/07/17 07:27 05/07/17 07:27 05/07/17 07:27 Intake and Output: 05/07/17 05/07/17 06:59 18:59 Intake Total 2064 Balance 2064 - Medications Medications: Current Medications Acetaminophen (Tylenol 325mg Tab) 650 mg PO Q6H PRN PRN Reason: Fever >100.4 F Ceftriaxone Sodium (Rocephin 1 Gram Ivpb) 1 gm in 100 mls @ 100 mls/hr IVPB DAILY [facility] PRN Reason: Protocol Last Admin: 05/06/17 11:43 Dose: 100 mls/hr Sodium Chloride (Sodium Chloride 0.9%) 1,000 mls @ 75 mls/hr IV .[id number] [facility] Last Admin: 05/06/17 21:49 Dose: 75 mls/hr Ibuprofen (Motrin Tab) 600 mg PO Q6H PRN PRN Reason: Pain, Mild (1-3) Nicotine (Nicoderm Cq) 1 patch TD DAILY [facility] Last Admin: 05/06/17 17:32 Dose: 1 patch Pantoprazole Sodium (Protonix Ec Tab) 40 mg PO 0600 [facility] Last Admin: 05/07/17 05:40 Dose: 40 mg - Labs Labs: 05/07/17 06:45 05/07/17 06:45 PT 13.2 SECONDS (9.4-12.5) H 05/07/17 06:59 INR 1.20 (0.93-1.08) H 05/07/17 06:59 APTT 30.8 Seconds (25.1-36.5) 05/07/17 06:59 - Constitutional Appears: No Acute Distress - Head Exam Head Exam: ATRAUMATIC, NORMAL INSPECTION, NORMOCEPHALIC - Eye Exam Eye Exam: EOMI, Normal appearance, PERRL - ENT Exam ENT Exam: Mucous Membranes Moist, Normal Exam - Neck Exam Neck Exam: Full ROM, Normal Inspection. absent: Lymphadenopathy - Respiratory Exam Respiratory Exam: Clear to Ausculation Bilateral, NORMAL BREATHING PATTERN - Cardiovascular Exam Cardiovascular Exam: REGULAR RHYTHM, +S1, +S2. absent: Murmur - GI/Abdominal Exam GI & Abdominal Exam: Soft, Normal Bowel Sounds. absent: Tenderness - Extremities Exam Extremities Exam: Full ROM, Normal Capillary Refill, Normal Inspection. absent : Joint Swelling, Pedal Edema - Back Exam Back Exam: NORMAL INSPECTION. absent: CVA tenderness (L), CVA tenderness (R) - Neurological Exam Neurological Exam: Alert, Awake, CN II-XII Intact, Normal Gait, Oriented x3 - Psychiatric Exam Psychiatric exam: Normal Affect, Normal Mood - Skin Skin Exam: Dry, Intact, Normal Color, Warm Assessment and Plan - Assessment and Plan (Free Text) Assessment: 26 F with PMHx of tobacco abuse admitted with UTI and further evaluated for retroperitoneal mesenteric lymphadenopathy. Pt started with rocephin with improvement of dysuria and back pain. Pt is for lymph node bx today by IR, Dr. William Linda. 1. Retroperitoneal, Mesenteric Lymphadenopathy with organomegaly -Stable, afebrile -CT abd/pelvis: marked splenic enlargement with retroperitoneal, mesenteric lymphadenopathy worrisome for systemic lymphomatous disease; fatty infiltration of the enlarged liver ( see full report) -Denies any "B" symptoms -Heme/onc consulted, Dr. Baker recommended bx, IR consulted, Dr. Linda, fu bx results - Fu HIV, GC, hep panel serologies 2. Urinary Tract Infection - dysuria and backpain - No leukocytosis, afebrile - UA positive, Ucx Gm + cocci, pending sensitivities, empirically on rocephin 3. Anemia -Hgb stable, dilutional effect -Will continue to monitor 4. Tobacco Abuse - counselled pt, educated, and encouraged tobacco cessation - nicotine patch offered GI/DVT ppx -Protonix 40mg PO -SCDs Seen Reviewed and Discussed with Attending <Laine Banks - Last Filed: 05/07/17 17:01> Objective - Vital Signs/Intake and Output Vital Signs (last 24 hours): Temp Pulse Resp BP Pulse Ox 98.4 F 72 18 132/78 97 05/07/17 16:45 05/07/17 16:45 05/07/17 16:45 05/07/17 16:45 05/07/17 16:45 Intake and Output: 05/07/17 05/07/17 06:59 18:59 Intake Total 2065 600 Balance 2065 600 - Medications Medications: Current Medications Acetaminophen (Tylenol 325mg Tab) 650 mg PO Q6H PRN PRN Reason: Fever >100.4 F Ceftriaxone Sodium (Rocephin 1 Gram Ivpb) 1 gm in 100 mls @ 100 mls/hr IVPB DAILY [facility] PRN Reason: Protocol Last Admin: 05/07/17 10:11 Dose: 100 mls/hr Sodium Chloride (Sodium Chloride 0.45%) 1,000 mls @ 80 mls/hr IV .[id number] [facility] Stop: 05/08/17 08:00 Ibuprofen (Motrin Tab) 600 mg PO Q6H PRN PRN Reason: Pain, Mild (1-3) Nicotine (Nicoderm Cq) 1 patch TD DAILY [facility] Last Admin: 05/07/17 10:10 Dose: 1 patch Ondansetron HCl (Zofran Inj) 4 mg IVP Q6H PRN PRN Reason: Nausea/Vomiting Pantoprazole Sodium (Protonix Ec Tab) 40 mg PO 0600 [facility] Last Admin: 05/07/17 05:40 Dose: 40 mg - Labs Labs: 05/07/17 06:45 05/07/17 06:45 PT 13.2 SECONDS (9.4-12.5) H 05/07/17 06:59 INR 1.20 (0.93-1.08) H 05/07/17 06:59 APTT 30.8 Seconds (25.1-36.5) 05/07/17 06:59 Attending/Attestation - Attestation I have personally seen and examined this patient.: Yes I have fully participated in the care of the patient.: Yes I have reviewed all pertinent clinical information, including history, physical exam and plan: Yes Notes (Text): 05/07/17 16:59 attending note; Patient seen and examined with resident. Patient is a 26-year-old female admitted with urinary symptoms and back discomfort. CT abdomen and pelvis showed splenomegaly and retroperitoneal lymphadenopathy. CT scan reviewed with interventional radiology Dr. William Linda. Plan for biopsy tomorrow. Oncology evaluation with Dr. Carlos Baker requested. Patient is advised to complete nalini Paperwork. Upon discharge the patient will follow-up with [facility] clinic.
[2017-05-07] MEDS: cefTRIAXone 1 gm 1 GM/100 ML BAG IVPB SCH (10:11)
[2017-05-07] MEDS ORDERED: Midazolam 2 MG/2 ML VIAL ONE (14:57)
[2017-05-07] MEDS ORDERED: Sodium Chloride 0.45% 1,000 ML IV SCH (16:00)
--- NOTE | 2017-05-07 17:19 | CT ---
PROCEDURE: CT guided left upper quadrant biopsy. HISTORY: Splenomegaly. Mesenteric and retroperitoneal lymphadenopathy. Evaluate for lymphoma. PHYSICIAN(S): William Linda MD. TECHNIQUE: The relative risks and indications of the procedure were explained to the patient and consent obtained. The patient was placed right decubitus on the CT scanner and preliminary images through the upper abdomen obtained. Conscious sedation and monitoring were provided throughout the procedure by a nurse. The spleen is enlarged. There are 2 nodules between the spleen and kidney which may represent lymphadenopathy or splenules. The largest measures 2.1 cm.. A left lateral approach was selected and the area prepped and draped in the usual sterile fashion. 1% Xylocaine was used to anesthetize the skin and soft tissues. A 17-gauge guiding needle was advanced into the 2.1 cm left upper quadrant nodule.. Its position was confirmed with CT. Using coaxial technique, multiple core biopsies were obtained. The postprocedure images show no evidence of significant hemorrhage. IMPRESSION: 1. CT-guided left upper quadrant biopsy as described above. The specimen was sent for histology and flow cytometry.
[2017-05-08 01:50] VITALS: PULSE 74; RESP 20
[2017-05-08 06:18] LABS: BASO # 0.02 K/mm3 (0.0-2.0); BASO % 0.5 % (0.0-3.0); EOS # 0.2 (0.0-0.7); EOS % 3.5 % (1.5-5.0); GRAN # 2.3 (1.4-6.5); GRAN % 54.2 % (50.0-68.0); HEMATOCRIT 30.2 % (36.0-48.0); LYMPH # 1.3 (1.2-3.4); LYMPH % 29.5 % (22.0-35.0); MEAN CELL VOLUME 89.1 fl (80.0-105.0); MEAN CORPUSCULAR HEMOGLOBIN 29.2 pg (25.0-35.0); MEAN CORPUSCULAR HGB CONC 32.8 g/dl (31.0-37.0); MEAN PLATELET VOLUME 10.9 fl (7.0-11.0); MONO # 0.5 (0.1-0.6); MONO % 12.3 % (1.0-6.0); RED CELL DISTRIBUTION WIDTH 13.6 % (11.5-14.5); RETIC% 2.61 % (0.5-1.5); WHITE BLOOD COUNT 4.2 10^3/ul (4.5-11.0)
[2017-05-08] MEDS: Pantoprazole 40 mg EC Tab PO SCH (06:19)
[2017-05-08 06:33] LABS: ALKALINE PHOSPHATASE 39 U/L (38-126); ALT/SGPT 20 U/L (7-56); AST/SGOT 18 U/L (14-36); BILIRUBIN,TOTAL 0.6 mg/dL (0.2-1.3); BLOOD UREA NITROGEN 11 mg/dL (7-21); CALCIUM 8.7 mg/dL (8.4-10.5); CARBON DIOXIDE 27 mmol/L (21-33); CHLORIDE 110 mmol/L (98-107); GFR AFRICAN-AMERICAN > 60; GLUCOSE,RANDOM 95 mg/dL (70-110); POTASSIUM 4.3 mmol/L (3.6-5.0); SODIUM 142 mmol/L (132-148); TOTAL PROTEIN 7.1 g/dL (5.8-8.3)
[2017-05-08 08:39] VITALS: BP 110/51; TEMP 98; O2SAT 100
[2017-05-08] MEDS: cefTRIAXone 1 gm 1 GM/100 ML BAG IVPB SCH (09:54)
[2017-05-08 12:32] LABS: FOLATE 6.4 ng/mL
--- NOTE | 2017-05-08 14:01 | CP.PCM.DIS ---
<Sumaya Sandoval - Last Filed: 05/08/17 13:54> Provider - Provider Date of Admission: 05/06/17 15:12 Attending physician: Laine Banks MD Primary care physician: NO PRIMARY CARE PROVIDER Consults: Heme/Onc: Samuel Time Spent in preparation of Discharge (in minutes): 45 Hospital Course - Lab Results Lab Results: Most Recent Lab Values WBC 4.2 10^3/ul (4.5-11.0) L 05/08/17 06:00 RBC 3.39 10^6/uL (3.5-6.1) L 05/08/17 06:00 Hgb 9.9 g/dL (12.0-16.0) L 05/08/17 06:00 Hct 30.2 % (36.0-48.0) L 05/08/17 06:00 MCV 89.1 fl (80.0-105.0) 05/08/17 06:00 MCH 29.2 pg (25.0-35.0) 05/08/17 06:00 MCHC 32.8 g/dl (31.0-37.0) 05/08/17 06:00 RDW 13.6 % (11.5-14.5) 05/08/17 06:00 Plt Count 130 10^3/uL (120.0-450.0) 05/08/17 06:00 MPV 10.9 fl (7.0-11.0) 05/08/17 06:00 Gran % 54.2 % (50.0-68.0) 05/08/17 06:00 Lymph % (Auto) 29.5 % (22.0-35.0) 05/08/17 06:00 [place] % (Auto) 12.3 % (1.0-6.0) H 05/08/17 06:00 Eos % (Auto) 3.5 % (1.5-5.0) 05/08/17 06:00 Baso % (Auto) 0.5 % (0.0-3.0) 05/08/17 06:00 Gran # 2.30 (1.4-6.5) 05/08/17 06:00 Lymph # 1.3 (1.2-3.4) 05/08/17 06:00 [place] # 0.5 (0.1-0.6) 05/08/17 06:00 Eos # 0.2 (0.0-0.7) 05/08/17 06:00 Baso # 0.02 K/mm3 (0.0-2.0) 05/08/17 06:00 Retic Count 2.61 % (0.5-1.5) H 05/08/17 06:00 PT 13.2 SECONDS (9.4-12.5) H 05/07/17 06:59 INR 1.20 (0.93-1.08) H 05/07/17 06:59 APTT 30.8 Seconds (25.1-36.5) 05/07/17 06:59 Sodium 142 mmol/L (132-148) 05/08/17 06:00 Potassium 4.3 mmol/L (3.6-5.0) 05/08/17 06:00 Chloride 110 mmol/L (98-107) H 05/08/17 06:00 Carbon Dioxide 27 mmol/L (21-33) 05/08/17 06:00 Anion Gap 10 (10-20) 05/08/17 06:00 BUN 11 mg/dL (7-21) 05/08/17 06:00 Creatinine 0.7 mg/dl (0.7-1.2) 05/08/17 06:00 Est GFR ( Amer) > 60 05/08/17 06:00 Est GFR (Non-Af Amer) > 60 05/08/17 06:00 Random Glucose 95 mg/dL (70-110) 05/08/17 06:00 Calcium 8.7 mg/dL (8.4-10.5) 05/08/17 06:00 Ferritin 56.1 ng/mL 05/08/17 06:00 Total Bilirubin 0.6 mg/dL (0.2-1.3) 05/08/17 06:00 AST 18 U/L (14-36) 05/08/17 06:00 ALT 20 U/L (7-56) 05/08/17 06:00 Alkaline Phosphatase 39 U/L (38-126) 05/08/17 06:00 Lactate Dehydrogenase 286 U/L (333-699) L 05/08/17 06:00 Total Protein 7.1 g/dL (5.8-8.3) 05/08/17 06:00 Albumin 3.6 g/dL (3.0-4.8) 05/08/17 06:00 Globulin 3.6 gm/dL 05/08/17 06:00 Albumin/Globulin Ratio 1.0 (1.1-1.8) L 05/08/17 06:00 Lipase 69 U/L (23-300) 05/05/17 23:30 Vitamin B12 > 1000 pg/mL (239-931) H 05/08/17 06:00 Folate 6.4 ng/mL 05/08/17 06:00 Urine Color Light yellow (YELLOW) 05/05/17 22:44 Urine Appearance Cloudy (CLEAR) 05/05/17 22:44 Urine pH 6.0 (4.7-8.0) 05/05/17 22:44 Ur Specific Media 1.015 (1.005-1.035) 05/05/17 22:44 Urine Protein Trace mg/dL (<30 mg/dL) H 05/05/17 22:44 Urine Glucose (UA) Negative mg/dL (NEGATIVE) 05/05/17 22:44 Urine Ketones Trace mg/dL (NEGATIVE) H 05/05/17 22:44 Urine Blood Small (NEGATIVE) H 05/05/17 22:44 Urine Nitrate Negative (NEGATIVE) 05/05/17 22:44 Urine Bilirubin Negative (NEGATIVE) 05/05/17 22:44 Urine Urobilinogen 1.0 E.U./dL (<1 E.U./dL) H 05/05/17 22:44 Ur Leukocyte Esterase Large Mary/uL (NEGATIVE) H 05/05/17 22:44 Urine RBC 1 - 3 /hpf (0-2) 05/05/17 22:44 Urine WBC Tntc /hpf (0-6) 05/05/17 22:44 Ur Epithelial Cells 1 - 3 /hpf (0-5) 05/05/17 22:44 Urine Bacteria Few (NEG) 05/05/17 22:44 Hepatitis A IgM Ab Negative (NEGATIVE) 05/07/17 06:45 Hep Bs Antigen Negative (NEGATIVE) 05/07/17 06:45 Hep B Core IgM Ab Negative (NEGATIVE) 05/07/17 06:45 Hepatitis C Antibody Negative (NEGATIVE) 05/07/17 06:45 HIV 1&2 Ag/Ab, 4th Gen Nonreactive (Nonreactive) 05/07/17 06:00 - Hospital Course Hospital Course: Patient is a 26 year old female with tobacco abuse presented to the ED for back discomfort for the past week. Back discomfort is worse at night, denies radiation. 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 Patient also states that she was experiencing dysuria and increased urinary frequency as well. For the past two days she noticed her urine was pink. States that this has never happened to her before. She admits to using monistat with no improvement in symptoms. Pt was admitted with UTI and further evaluated for retroperitoneal mesenteric lymphadenopathy. CT abd/pelvis: marked splenic enlargement with retroperitoneal, mesenteric lymphadenopathy worrisome for systemic lymphomatous disease; fatty infiltration of the enlarged liver ( see full report). Dr. Baker, Heme onc was consulted, recommended biopsy. IR, Dr. Linda was consulted for biopsy. HIV, GC, hep panel serologies returned negative. UA positive, Ucx Gm + cocci, pending sensitivities, empirically on rocephin. Pt started with rocephin with improvement of dysuria and back pain. Sensitivities returned for Ucx and pt was discharged with ciprofloxacin. Pt was counselled for tobacco abuse, educated, and encouraged tobacco cessation. Nicotine patch offered during admission. Upon DC, Pt is [place] [facility] [place]. Discharge Exam - Head Exam Head Exam: ATRAUMATIC, NORMAL INSPECTION, NORMOCEPHALIC - Eye Exam Eye Exam: EOMI, Normal appearance, PERRL Pupil Exam: NORMAL ACCOMODATION, PERRL - ENT Exam ENT Exam: Mucous Membranes Moist - Neck Exam Neck exam: Full Rom - Respiratory Exam Respiratory Exam: Clear to PA & Lateral, NORMAL BREATHING PATTERN, UNREMARKABLE - Cardiovascular Exam Cardiovascular Exam: RRR, +S1, +S2 - GI/Abdominal Exam GI & Abdominal Exam: Normal Bowel Sounds, Soft. absent: Tenderness - Extremities Exam Extremities exam: normal inspection - Neurological Exam Neurological exam: Alert, CN II-XII Intact, Normal Gait, Oriented x3, Reflexes Normal - Psychiatric Exam Psychiatric exam: Normal Affect, Normal Mood - Skin Skin Exam: Dry, Intact, Normal Color, Warm Discharge Plan - Discharge Medications Prescriptions: Ciprofloxacin HCl [Cipro] 250 mg PO BID #6 tablet - Follow Up Plan Condition: FAIR Disposition: HOME/ ROUTINE Instructions: Urinary Tract Infection in Women (DC), Lymphadenopathy (GEN), Low Back Strain (DC), Lymph Node Biopsy (DC) Additional Instructions: 1. Pt is to FU with [facility] [place] fu of path reports 2. Pt is to complete abx course for UTI 3. Pt is to follow up with Heme/Onc Dr. Baker 4. Pt is welcomed to return to [facility] if sx change or worsen Referrals: PCP,NO [Primary Care Provider] - <Laine Banks - Last Filed: 05/08/17 14:20> Provider - Provider Date of Admission: 05/06/17 15:12 Attending physician: Laine Banks MD Primary care physician: JOSÉ MIGUEL PRIMARY CARE PROVIDER Hospital Course - Lab Results Lab Results: Most Recent Lab Values WBC 4.2 10^3/ul (4.5-11.0) L 05/08/17 06:00 RBC 3.39 10^6/uL (3.5-6.1) L 05/08/17 06:00 Hgb 9.9 g/dL (12.0-16.0) L 05/08/17 06:00 Hct 30.2 % (36.0-48.0) L 05/08/17 06:00 MCV 89.1 fl (80.0-105.0) 05/08/17 06:00 MCH 29.2 pg (25.0-35.0) 05/08/17 06:00 MCHC 32.8 g/dl (31.0-37.0) 05/08/17 06:00 RDW 13.6 % (11.5-14.5) 05/08/17 06:00 Plt Count 130 10^3/uL (120.0-450.0) 05/08/17 06:00 MPV 10.9 fl (7.0-11.0) 05/08/17 06:00 Gran % 54.2 % (50.0-68.0) 05/08/17 06:00 Lymph % (Auto) 29.5 % (22.0-35.0) 05/08/17 06:00 [place] % (Auto) 12.3 % (1.0-6.0) H 05/08/17 06:00 Eos % (Auto) 3.5 % (1.5-5.0) 05/08/17 06:00 Baso % (Auto) 0.5 % (0.0-3.0) 05/08/17 06:00 Gran # 2.30 (1.4-6.5) 05/08/17 06:00 Lymph # 1.3 (1.2-3.4) 05/08/17 06:00 [place] # 0.5 (0.1-0.6) 05/08/17 06:00 Eos # 0.2 (0.0-0.7) 05/08/17 06:00 Baso # 0.02 K/mm3 (0.0-2.0) 05/08/17 06:00 Retic Count 2.61 % (0.5-1.5) H 05/08/17 06:00 PT 13.2 SECONDS (9.4-12.5) H 05/07/17 06:59 INR 1.20 (0.93-1.08) H 05/07/17 06:59 APTT 30.8 Seconds (25.1-36.5) 05/07/17 06:59 Sodium 142 mmol/L (132-148) 05/08/17 06:00 Potassium 4.3 mmol/L (3.6-5.0) 05/08/17 06:00 Chloride 110 mmol/L (98-107) H 05/08/17 06:00 Carbon Dioxide 27 mmol/L (21-33) 05/08/17 06:00 Anion Gap 10 (10-20) 05/08/17 06:00 BUN 11 mg/dL (7-21) 05/08/17 06:00 Creatinine 0.7 mg/dl (0.7-1.2) 05/08/17 06:00 Est GFR ( Amer) > 60 05/08/17 06:00 Est GFR (Non-Af Amer) > 60 05/08/17 06:00 Random Glucose 95 mg/dL (70-110) 05/08/17 06:00 Calcium 8.7 mg/dL (8.4-10.5) 05/08/17 06:00 Ferritin 56.1 ng/mL 05/08/17 06:00 Total Bilirubin 0.6 mg/dL (0.2-1.3) 05/08/17 06:00 AST 18 U/L (14-36) 05/08/17 06:00 ALT 20 U/L (7-56) 05/08/17 06:00 Alkaline Phosphatase 39 U/L (38-126) 05/08/17 06:00 Lactate Dehydrogenase 286 U/L (333-699) L 05/08/17 06:00 Total Protein 7.1 g/dL (5.8-8.3) 05/08/17 06:00 Albumin 3.6 g/dL (3.0-4.8) 05/08/17 06:00 Globulin 3.6 gm/dL 05/08/17 06:00 Albumin/Globulin Ratio 1.0 (1.1-1.8) L 05/08/17 06:00 Lipase 69 U/L (23-300) 05/05/17 23:30 Vitamin B12 > 1000 pg/mL (239-931) H 05/08/17 06:00 Folate 6.4 ng/mL 05/08/17 06:00 Urine Color Light yellow (YELLOW) 05/05/17 22:44 Urine Appearance Cloudy (CLEAR) 05/05/17 22:44 Urine pH 6.0 (4.7-8.0) 05/05/17 22:44 Ur Specific Media 1.015 (1.005-1.035) 05/05/17 22:44 Urine Protein Trace mg/dL (<30 mg/dL) H 05/05/17 22:44 Urine Glucose (UA) Negative mg/dL (NEGATIVE) 05/05/17 22:44 Urine Ketones Trace mg/dL (NEGATIVE) H 05/05/17 22:44 Urine Blood Small (NEGATIVE) H 05/05/17 22:44 Urine Nitrate Negative (NEGATIVE) 05/05/17 22:44 Urine Bilirubin Negative (NEGATIVE) 05/05/17 22:44 Urine Urobilinogen 1.0 E.U./dL (<1 E.U./dL) H 05/05/17 22:44 Ur Leukocyte Esterase Large Mary/uL (NEGATIVE) H 05/05/17 22:44 Urine RBC 1 - 3 /hpf (0-2) 05/05/17 22:44 Urine WBC Tntc /hpf (0-6) 05/05/17 22:44 Ur Epithelial Cells 1 - 3 /hpf (0-5) 05/05/17 22:44 Urine Bacteria Few (NEG) 05/05/17 22:44 Hepatitis A IgM Ab Negative (NEGATIVE) 05/07/17 06:45 Hep Bs Antigen Negative (NEGATIVE) 05/07/17 06:45 Hep B Core IgM Ab Negative (NEGATIVE) 05/07/17 06:45 Hepatitis C Antibody Negative (NEGATIVE) 05/07/17 06:45 HIV 1&2 Ag/Ab, 4th Gen Nonreactive (Nonreactive) 05/07/17 06:00 Attending/Attestation - Attestation I have personally seen and examined this patient.: Yes I have fully participated in the care of the patient.: Yes I have reviewed all pertinent clinical information, including history, physical exam and plan: Yes Notes (Text): attending note; Patient seen and examined with resident. Patient is a 26-year-old female admitted with urinary symptoms and back discomfort/urinary tract infection. urine culture is positive for Staphylococticus. started on ciprofloxacin. HIV, hepatitis profile is negative. CT abdomen and pelvis showed splenomegaly and retroperitoneal lymphadenopathy. CT scan reviewed with interventional radiology Dr. William Linda. status post lymph node biopsy yesterday. Oncology evaluation with Dr. Carlos Baker appreciated. Patient is advised to complete nalini Paperwork. Upon discharge the patient will [place] [facility] [place]. Patient is advised to follow-up with biopsy results. chlamydia/gonorrhea is pending. diagnosis; Urinary tract infection Splenomegaly Lymphadenopathy Status post lymph node biopsy
== END 2017-05-08 13:00 | disposition home or self-care (01) ==
LOC: ED 22:11 → ERH 05-06 00:52 → 5RNO 05-06 02:49 → INTOOBSV 05-06 15:12 → OBSVTOIN 05-06 15:12
PROVIDERS: ADMIT Hospitalist; ATTEND Internal Medicine
DX: R59.0 Localized enlarged lymph nodes (principal); N39.0 Urinary tract infection, site not specified; R16.1 Splenomegaly, not elsewhere classified; M54.9 Dorsalgia, unspecified; R30.0 Dysuria; F12.90 Cannabis use, unspecified, uncomplicated; F17.210 Nicotine dependence, cigarettes, uncomplicated; D64.9 Anemia, unspecified; Z80.51 Family history of malignant neoplasm of kidney; K76.0 Fatty (change of) liver, not elsewhere classified
CPT/HCPCS: 36415; 38505; 74176; 77012; 80053; 80074; 81001; 82607; 82728; 82746; 83615; 83690; 85025; 85044; 85610; 85730; 87086; 87181; 87389; 87491; 87591; 88305; 96361; 96365; 96375; 96376; 99283; G0378; J0696; J1885; J2250; J2405; J3010; J7030; J7040

== ENCOUNTER 2017-08-06 12:16 | Day surgery (SDC) | payer OTHER ==
[2017-08-06 12:49] VITALS: BMI 38.0
--- NOTE | 2017-08-06 12:57 | ED PDOC ---
Arrival/HPI - General Chief Complaint: Medical Clearance Time Seen by Provider: 08/06/17 12:26 Historian: Patient - History of Present Illness Narrative History of Present Illness (Text): 08/06/17 12:56 A 26 year old female, whose past medical history includes eczema, presents to the emergency department for evaluation. Patient has h/o of lymphoma, presents for eval by IR. no fever, n/v/d, urinary complaints. Oncologist: [facility] 08/06/17 16:03 Past Medical History - Provider Review Nursing Documentation Reviewed: Yes - Infectious Disease Hx of Infectious Diseases: None - Past Medical History Past Medical History: No Previous - Cardiac Hx Pacemaker: No - Neurological Hx Paralysis: No - Hematological/Oncological Hx Blood Transfusions: No Hx Blood Transfusion Reaction: No - Integumentary Hx Eczema: Yes - Musculoskeletal/Rheumatological Hx Musculoskeletal Disorders: No - Psychiatric Hx Anxiety: Yes Hx Substance Use: No - Past Surgical History Past Surgical History: No Previous - Surgical History Other/Comment: MIGRAINE - Anesthesia Hx Anesthesia: No Hx Anesthesia Reactions: No Hx Malignant Hyperthermia: No - Suicidal Assessment Feels Threatened In Home Enviroment: No Family/Social History - Physician Review Nursing Documentation Reviewed: Yes Family/Social History: No Known Family HX Smoking Status: Heavy Smoker > 10 Cigarettes Daily Hx Alcohol Use: Yes (OCCASIONAL- [place] [employer]) Hx Substance Use: No Hx Substance Use Treatment: No Allergies/Home Meds Allergies/Adverse Reactions: Allergies Penicillins Allergy (Verified 07/30/17 14:30) RASH Home Medications: Home Meds Medication Instructions Recorded Confirmed No Known Home Med 07/30/17 08/06/17 Review of Systems - Physician Review All systems were reviewed & negative as marked: Yes - Review of Systems Constitutional: absent: Fevers, Night Sweats Respiratory: absent: SOB, Cough Cardiovascular: absent: Chest Pain Gastrointestinal: absent: Abdominal Pain, Diarrhea, Nausea, Vomiting Physical Exam Vital Signs Reviewed: Yes Vital Signs Temp Pulse Resp BP Pulse Ox 08/06/17 15:34 98.1 F 90 20 110/65 08/06/17 15:05 98.1 F 88 18 108/70 100 08/06/17 14:49 98.0 F 85 17 103/56 L 100 08/06/17 14:34 98.0 F 85 17 101/56 L 100 08/06/17 13:03 98.0 F 81 17 147/87 100 Appearance: Positive for: Well-Appearing Pain Distress: None Mental Status: Positive for: Alert and Oriented X 3 - Systems Exam Head: Present: Atraumatic, Normocephalic Pupils: Present: PERRL Extroacular Muscles: Present: EOMI Conjunctiva: Present: Normal Mouth: Present: Moist Mucous Membranes Neck: Present: Normal Range of Motion Respiratory/Chest: Present: Clear to Auscultation, Good Air Exchange. No: Respiratory Distress, Accessory Muscle Use Cardiovascular: Present: Regular Rate and Rhythm, Normal S1, S2. No: Murmurs Abdomen: Present: Normal Bowel Sounds. No: Tenderness, Distention, Peritoneal Signs Back: Present: Normal Inspection Upper Extremity: Present: Normal Inspection. No: Cyanosis, Edema Lower Extremity: Present: Normal Inspection. No: Edema Neurological: Present: GCS=15, CN II-XII Intact, Speech Normal Skin: Present: Warm, Dry, Normal Color. No: Rashes Psychiatric: Present: Alert, Oriented x 3, Normal Insight, Normal Concentration Medical Decision Making ED Course and Treatment: 08/06/17 12:58 Impression: 26 year old female here for evaluation. Physical exam is benign. Plan: -- Labs -- Urinalysis -- IV Fluids -- Reassess and disposition Progress Notes: - Lab Interpretations Lab Results: 08/06/17 13:10 08/06/17 13:10 Lab Results 08/06/17 14:15: Blood Type Confirm A POSITIVE 08/06/17 13:10: Blood Type A POSITIVE, Antibody Screen Negative, BBK History Checked No verified bt 08/06/17 13:10: Sodium 144, Potassium 3.9, Chloride 107, Carbon Dioxide 26, Anion Gap 16, BUN 17, Creatinine 0.6 L, Est GFR ( Amer) > 60, Est GFR ( Non-Af Amer) > 60, Random Glucose 92, Calcium 9.6, Total Bilirubin 0.3, AST 20, ALT 23, Alkaline Phosphatase 42, Total Protein 8.1, Albumin 4.4, Globulin 3.7, Albumin/Globulin Ratio 1.2 08/06/17 13:10: PT 13.0 H, INR 1.13 H, APTT 31.7 08/06/17 13:10: WBC 5.7 D, RBC 3.65, Hgb 10.6 L, Hct 32.6 L, MCV 89.3, MCH 29.0 , MCHC 32.5, RDW 14.0, Plt Count 126, MPV 10.6, Gran % 55.8, Lymph % (Auto) 29.6 , [place] % (Auto) 7.9 H, Eos % (Auto) 6.3 H, Baso % (Auto) 0.4, Gran # 3.19, Lymph # (Auto) 1.7, [place] # (Auto) 0.5, Eos # (Auto) 0.4, Baso # (Auto) 0.02 I have reviewed the lab results: Yes - RAD Interpretation Radiology Orders: 08/06/17 13:00 CT GUIDED PELVIS BX BUNDLE [CT] Routine - Medication Orders Current Medication Orders: Acetaminophen (Tylenol 325mg Tab) 650 mg PO Q4 PRN PRN Reason: Pain, Mild (1-3) Sodium Chloride (Sodium Chloride 0.45%) 1,000 mls @ 100 mls/hr IV .Q10H VLADIMIR Last Admin: 08/06/17 13:15 Dose: 100 mls/hr eMAR Start Stop Document 08/06/17 13:15 SRE (Rec: 08/06/17 13:16 [id number] [id number]) Intravenous Solution Start Date 08/06/17 Start Time 13:16 - Scribe Statement The provider has reviewed the documentation as recorded by the Sandra Jimenez Provider Scribe Attestation: All medical record entries made by the Scribe were at my direction and personally dictated by me. I have reviewed the chart and agree that the record accurately reflects my personal performance of the history, physical exam, medical decision making, and the department course for this patient. I have also personally directed, reviewed, and agree with the discharge instructions and disposition. Disposition/Present on Arrival - Present on Arrival Any Indicators Present on Arrival: No History of DVT/PE: No History of Uncontrolled Diabetes: No Urinary Catheter: No History of Decub. Ulcer: No History Surgical Site Infection Following: None - Disposition Have Diagnosis and Disposition been Completed?: Yes Diagnosis: Lymphoma Disposition: HOSPITALIZED Disposition Time: 07:00 Condition: STABLE
[2017-08-06] MEDS ORDERED: Sodium Chloride 0.45% 1,000 ML IV SCH (13:00)
[2017-08-06] MEDS ORDERED: Midazolam 2 MG/2 ML VIAL ONE (13:16)
[2017-08-06] MEDS ORDERED: Lidocaine 2% Inj (20ml) ONE (13:17)
[2017-08-06 13:18] LABS: BASO # 0.02 K/mm3 (0.0-2.0); BASO % 0.4 % (0.0-3.0); EOS # 0.4 (0.0-0.7); EOS % 6.3 % (1.5-5.0); GRAN # 3.19 (1.4-6.5); GRAN % 55.8 % (50.0-68.0); HEMOGLOBIN 10.6 g/dL (12.0-16.0); LYMPH # 1.7 (1.2-3.4); LYMPH % 29.6 % (22.0-35.0); MEAN CELL VOLUME 89.3 fl (80.0-105.0); MEAN CORPUSCULAR HGB CONC 32.5 g/dl (31.0-37.0); MEAN PLATELET VOLUME 10.6 fl (7.0-11.0); MONO # 0.5 (0.1-0.6); MONO % 7.9 % (1.0-6.0); RBC 3.65 10^6/uL (3.5-6.1); WHITE BLOOD COUNT 5.7 10^3/ul (4.5-11.0)
[2017-08-06 13:27] LABS: ALB/GLOB RATIO 1.2 (1.1-1.8); ALBUMIN 4.4 g/dL (3.0-4.8); ALT/SGPT 23 U/L (7-56); AST/SGOT 20 U/L (14-36); BLOOD UREA NITROGEN 17 mg/dL (7-21); CALCIUM 9.6 mg/dL (8.4-10.5); GFR AFRICAN-AMERICAN > 60; GFR NON-AFRICAN AMERICAN > 60
[2017-08-06 13:31] LABS: INR 1.13 (0.93-1.08); PARTIAL THROMBOPLASTIN TIME 31.7 Seconds (25.1-36.5)
[2017-08-06 15:17] VITALS: TEMP 98.1
[2017-08-06 16:21] VITALS: O2SAT 98
[2017-08-06] MEDS ORDERED: HYDROmorphone 2 mg/ml ISec IVP ONE (16:41)
[2017-08-06] MEDS ORDERED: HYDROmorphone 2 mg/ml ISec IVP STA (16:43)
[2017-08-06] MEDS ORDERED: HYDROmorphone 2 mg/ml ISec ONE (16:44)
--- NOTE | 2017-08-06 18:25 | CT ---
PROCEDURE: CT Pelvis without contrast HISTORY: pain,r/o hematoma COMPARISON: August 06, 2017. CT directed biopsy right obturator lymph nodes TECHNIQUE: Contiguous axial images of the pelvis . No intravenous or oral contrast given. Coronal and sagittal reformats generated. Radiation dose: Total exam DLP = 569.75 mGy-cm. This CT exam was performed using one or more of the following dose reduction techniques: Automated exposure control, adjustment of the mA and/or kV according to patient size, and/or use of iterative reconstruction technique. FINDINGS: BLADDER: No intrinsic or mural abnormalities. The urinary bladder is displaced to the left by the pelvic hemorrhage/ hematoma REPRODUCTIVE ORGANS: Unremarkable. VISUALIZED BOWEL: Unremarkable. PERITONEUM: Unremarkable, as visualized. No free fluid. No free air. LYMPH NODES: There appear to be multiple small retroperitoneal lymph nodes incompletely visualized. BONES: No fracture or focal lesion. VASCULATURE: Unremarkable. OTHER FINDINGS: Acute hemorrhage status post pelvic lymph node biopsy. The hematoma/ hemorrhage is confined to the pelvis without extension into the right lower extremity. IMPRESSION: Confined pelvic hematoma/ hemorrhage approximately 3.3 x 5.8 cm. There is no extension into the right upper extremity, there is no appreciable free fluid in the lower abdomen.
--- NOTE | 2017-08-06 18:40 | CT ---
PROCEDURE: CT guided right pelvic biopsy. HISTORY: Hepatic splenomegaly and scattered enlarged adenopathy. Evaluate for lymphoma. PHYSICIAN(S): William Linda MD. TECHNIQUE: The relative risks and indications of the procedure were explained to the patient and consent obtained. The patient was placed supine on the CT scanner and preliminary images through the pelvis obtained. Conscious sedation and monitoring were provided throughout the procedure by a nurse. There is a 1 by 4 cm lymph node in the right pelvis. A right anterior approach was selected and the area prepped and draped in the usual sterile fashion. 1% Xylocaine was used to anesthetize the skin and soft tissues. A 17-gauge guiding needle was advanced into the 1 x 4 cm right pelvic lymph node. Its position was confirmed with CT. Using coaxial technique, multiple core biopsies were obtained. The postprocedure images demonstrate a small hematoma. The patient was asymptomatic. IMPRESSION: 1. CT-guided right pelvic biopsy as described above.
[2017-08-06 19:04] VITALS: RESP 18
[2017-08-06 19:05] VITALS: PULSE 84
[2017-08-06 19:22] VITALS: BP 131/72
== END 2017-08-06 19:20 | disposition home or self-care (01) ==
LOC: ED 12:16 → SDSVAS 14:20
PROVIDERS: ATTEND Radiology Vascular & Interventional Radiology
DX: C85.90 Non-Hodgkin lymphoma, unspecified, unspecified site (principal); F17.210 Nicotine dependence, cigarettes, uncomplicated; F41.9 Anxiety disorder, unspecified; Z88.0 Allergy status to penicillin
CPT/HCPCS: 49180; 72192; 77012; 80053; 85025; 85610; 85730; 86850; 86900; 87015; 87101; 87116; 87206; 88305; 99282; J1170; J2250; J3010; J7030

== ENCOUNTER 2017-08-07 22:44 | Observation (INO) | payer OTHER ==
[2017-08-07 22:44] VITALS: BMI 38.0
--- NOTE | 2017-08-07 23:09 | ED PDOC ---
Arrival/HPI - General Chief Complaint: Abdominal Pain Time Seen by Provider: 08/07/17 23:02 Historian: Patient - History of Present Illness Narrative History of Present Illness (Text): 08/07/17 23:08 Susanne Mistry is a 26 year old female, whose past medical history includes a history of lymphoma and eczema, who presents to the emergency department with lower abdominal pain which radiates to the back. Patient notes associated vaginal bleeding but states she menstruated last week. Patient notes she had a biopsy of the pelvic area yesterday. Patient denies any fever, chills , chest pain, shortness of breath, nausea, vomiting, diarrhea, neck pain, headache, dizziness, or any other complaints. Time/Duration: Other (today) Symptom Onset: Gradual Symptom Course: Unchanged Activities at Onset: Light Context: Home Past Medical History - Provider Review Nursing Documentation Reviewed: Yes - Infectious Disease Hx of Infectious Diseases: None - Past Medical History Past Medical History: No Previous - Cardiac Hx Pacemaker: No - Neurological Hx Paralysis: No - Hematological/Oncological Hx Blood Transfusions: No Hx Blood Transfusion Reaction: No - Integumentary Hx Eczema: Yes - Musculoskeletal/Rheumatological Hx Musculoskeletal Disorders: No - Psychiatric Hx Anxiety: Yes Hx Substance Use: No - Past Surgical History Past Surgical History: No Previous - Surgical History Other/Comment: MIGRAINE - Anesthesia Hx Anesthesia: No Hx Anesthesia Reactions: No Hx Malignant Hyperthermia: No - Suicidal Assessment Feels Threatened In Home Enviroment: No Family/Social History - Physician Review Nursing Documentation Reviewed: Yes Family/Social History: Unknown Family HX Smoking Status: Heavy Smoker > 10 Cigarettes Daily Hx Alcohol Use: Yes (OCCASIONAL- [employer] [place] [employer]) Hx Substance Use: No Hx Substance Use Treatment: No Allergies/Home Meds Allergies/Adverse Reactions: Allergies Penicillins Allergy (Verified 07/30/17 14:30) RASH Review of Systems - Physician Review All systems were reviewed & negative as marked: Yes - Review of Systems Constitutional: Normal Eyes: Normal ENT: Normal Respiratory: Normal. absent: SOB, Cough Cardiovascular: Normal. absent: Chest Pain, Palpitations Gastrointestinal: Abdominal Pain. absent: Diarrhea, Nausea, Vomiting Genitourinary Female: Vaginal Bleeding. absent: Dysuria, Hematuria, Urine Output Changes Musculoskeletal: Back Pain. absent: Neck Pain Skin: Normal. absent: Rash Neurological: Normal. absent: Headache, Dizziness Endocrine: Normal Hemo/Lymphatic: Normal Psychiatric: Normal Physical Exam Vital Signs Reviewed: Yes Vital Signs Temp Pulse Resp BP Pulse Ox 08/08/17 01:43 98.5 F 87 16 105/68 98 08/07/17 22:45 99 F 102 H 18 127/80 99 Temperature: Afebrile Blood Pressure: Normal Pulse: Tachycardic Respiratory Rate: Normal Appearance: Positive for: Well-Appearing, Non-Toxic Pain Distress: None Mental Status: Positive for: Alert and Oriented X 3 - Systems Exam Head: Present: Atraumatic, Normocephalic Pupils: Present: PERRL Extroacular Muscles: Present: EOMI Conjunctiva: Present: Normal Mouth: Present: Moist Mucous Membranes Neck: Present: Normal Range of Motion Respiratory/Chest: Present: Clear to Auscultation, Good Air Exchange. No: Respiratory Distress, Accessory Muscle Use Cardiovascular: Present: Regular Rate and Rhythm, Normal S1, S2. No: Murmurs Abdomen: Present: Tenderness (Rigth Lower Quadrant tenderness), Normal Bowel Sounds. No: Distention, Peritoneal Signs Back: Present: Normal Inspection. No: CVA Tenderness, Midline Tenderness, Paraspinal Tenderness Upper Extremity: Present: Normal Inspection. No: Cyanosis, Edema Lower Extremity: Present: Normal Inspection. No: Edema, CALF TENDERNESS, Cyanosis Neurological: Present: GCS=15, CN II-XII Intact, Speech Normal Skin: Present: Warm, Dry, Normal Color. No: Rashes Psychiatric: Present: Alert, Oriented x 3, Normal Insight, Normal Concentration Medical Decision Making ED Course and Treatment: 08/07/17 23:35 Impression: 26 year old female presents to the emergency department complaining of lower abdominal pain radiating to the back s/p biopsy of the pelvic area. Plan: -- CT abdomen & pelvis -- Labs -- Morphine -- Urine test -- Reassess and disposition Prior Visits: Notes and results from previous visits were reviewed. Patient was last seen in the emergency department on 08/06/17 for medical clearance and was admitted for lymphoma. Progress Notes: 08/08/17 01:23 Case discussed with surgical dressing maker real estate salesperson who is aware and agrees with plan. 08/08/17 01:29 Case discussed with certified medical technician real estate salesperson who is aware and agrees with plan. 08/08/17 01:[address] Venita Kee who is aware and agrees with plan. Accepts pt into hospital service. 08/08/17 01:33 CT abdomen/pelvis: FINDINGS: Lower thorax: Within the right middle lobe on series 5 image 11, there is a 3 mm nodule. A 2 mm nodule is visualized in the left lower lobe on series 5 image 24. There is a 4 mm subpleural nodule in the left lower lobe on series 5 image 17. ABDOMEN: Liver: No mass. Gallbladder and bile ducts: No calcified stones. No ductal dilation. Pancreas: Normal contour, without acute peripancreatic stranding. Spleen: There is splenomegaly. The spleen measures 18.4 cm in length. In a patient with a history of lymphoma, malignant infiltration is considered. A splenule is visualized inferior to the spleen. An exophytic renal lesion cannot be excluded. Adrenals: No mass. Kidneys and ureters: No hydronephrosis. No solid mass. Stomach and bowel: Mildly distended small bowel loops are visualized with air- fluid levels, new compared to the prior study. The distal small bowel is normal in caliber. This is concerning for obstruction. Appendix: There is borderline distention of the base of the appendix measuring 7 mm in diameter, without progression compared to the prior study. Increased density is also noted within the appendix, suggestive of an appendicolith or residual contrast. PELVIS: Bladder: There is swelling visualized within the right lower quadrant of the abdomen and anterior pelvis, which has progressed. This surrounds the bladder. Reproductive: A hypointense vaginal cancer/tampon is visualized. ABDOMEN and PELVIS: Intraperitoneal space: A small amount of free fluid is identified within the pelvis posteriorly. Bones/joints: No acute fracture. Soft tissues: Abnormal hyperdensity is identified within the right side of the pelvis, consistent with hemorrhage. Along the right pelvic wall, there is a 5.6 x 2.8 cm mass or hematoma of heterogeneous density, without significant progression. Vasculature: No abdominal aortic aneurysm. Lymph nodes: Retroperitoneal and mesenteric lymphadenopathy is identified. One of the enlarged retroperitoneal lymph nodes is identified in the left para-aortic region measuring 2.3 x 1.1 cm on series 2 image 45. Intrapelvic lymphadenopathy is identified. Mildly enlarged inguinal lymph nodes are also seen. IMPRESSION: 1. Abnormal hyperdensity is identified within the right side of the pelvis, consistent with hemorrhage. Along the right pelvic wall, there is a 5.6 x 2.8 cm mass or hematoma of heterogeneous density, without significant progression. 2. There is swelling visualized within the right lower quadrant of the abdomen and anterior pelvis, which has progressed. This surrounds the bladder. Correlation with urinalysis is recommended to exclude cystitis. 3. There is borderline distention of the base of the appendix measuring 7 mm in diameter, without progression compared to the prior study. Due to progression of swelling in the right lower quadrant, a follow-up CT is recommended. 4. Mildly distended small bowel loops are visualized with air-fluid levels, new compared to the prior study, concerning for obstruction. 5. There is splenomegaly. In a patient with a history of lymphoma, malignant infiltration is considered. 6. Retroperitoneal and mesenteric lymphadenopathy is identified. Intrapelvic lymphadenopathy is identified. Mildly enlarged inguinal lymph nodes are also seen. 7. A small amount of free fluid is identified within the pelvis posteriorly. 8. A few small lung nodules are noted above. Correlation with the recent PET/CT is recommended. 9. Additional CT findings described above. - Lab Interpretations Lab Results: 08/07/17 23:40 08/07/17 23:40 Lab Results 08/07/17 23:40: Sodium 143, Potassium 3.8, Chloride 105, Carbon Dioxide 25, Anion Gap 16, BUN 14, Creatinine 0.6 L, Est GFR ( Amer) > 60, Est GFR ( Non-Af Amer) > 60, Random Glucose 94, Calcium 9.4, Total Bilirubin 0.3, AST 24, ALT 22, Alkaline Phosphatase 45, Total Protein 8.1, Albumin 4.1, Globulin 4.0, Albumin/Globulin Ratio 1.0 L 08/07/17 23:40: PT 13.9 H, INR 1.21 H, APTT 31.6 08/07/17 23:40: WBC 5.6, RBC 3.47 L, Hgb 10.1 L, Hct 30.9 L, MCV 89.0, MCH 29.1 , MCHC 32.7, RDW 14.0, Plt Count 123, MPV 10.4, Gran % 63.8, Lymph % (Auto) 20.7 L, Desha % (Auto) 8.9 H, Eos % (Auto) 6.4 H, Baso % (Auto) 0.2, Gran # 3.57 , Lymph # (Auto) 1.2, Desha # (Auto) 0.5, Eos # (Auto) 0.4, Baso # (Auto) 0.01 I have reviewed the lab results: Yes - RAD Interpretation Radiology Orders: 08/07/17 23:09 ABD & PELVIS IV CONTRAST ONLY [CT] Stat Strapping Machine Operator: Radiologist - Medication Orders Current Medication Orders: Discontinued Medications Acetaminophen (Tylenol 325mg Tab) 650 mg PO Q6H PRN PRN Reason: Fever >100.4 F Sodium Chloride (Sodium Chloride 0.9%) 1,000 mls @ 100 mls/hr IV .Q10H [id number] Last Admin: 08/08/17 03:59 Dose: 100 mls/hr eMAR Start Stop Document 08/08/17 03:59 PCO (Rec: 08/08/17 04:00 PCO [id number]) Intravenous Solution Start Date 08/08/17 Start Time 03:59 End Date 08/08/17 End time 14:00 Total Infusion Time 601 Morphine Sulfate (Morphine) 2 mg IVP STAT STA Stop: 08/07/17 23:15 Last Admin: 08/07/17 23:41 Dose: 2 mg MAR Pain Assessment Document 08/07/17 23:41 CNR (Rec: 08/07/17 23:42 CNR [id number]) Pain Reassessment Is this a pain reassessment? Yes IVP Administration Document 08/07/17 23:41 CNR (Rec: 08/07/17 23:42 CNR [id number]) Charges for Administration # of IVP Administrations 1 Morphine Sulfate (Morphine) 2 mg IVP STAT STA Stop: 08/08/17 00:52 Last Admin: 08/08/17 01:00 Dose: 2 mg MAR Pain Assessment Document 08/08/17 01:00 CNR (Rec: 08/08/17 01:00 CNR [id number]) Pain Reassessment Is this a pain reassessment? Yes Location Pain Location Body Site Abdomen Description Description Intermittent IVP Administration Document 08/08/17 01:00 CNR (Rec: 08/08/17 01:00 CNR [id number]) Charges for Administration # of IVP Administrations 1 Morphine Sulfate (Morphine) 2 mg IVP Q4H PRN PRN Reason: Pain, severe (8-10) Pantoprazole Sodium (Protonix Ec Tab) 40 mg PO 0600 [facility] - Scribe Statement The provider has reviewed the documentation as recorded by the Sandra [facility] training under Alexus Page All medical record entries made by the Sandra were at my direction and personally dictated by me. I have reviewed the chart and agree that the record accurately reflects my personal performance of the history, physical exam, medical decision making, and the department course for this patient. I have also personally directed, reviewed, and agree with the discharge instructions and disposition. Disposition/Present on Arrival - Present on Arrival Any Indicators Present on Arrival: No History of DVT/PE: No History of Uncontrolled Diabetes: No Urinary Catheter: No History of Decub. Ulcer: No History Surgical Site Infection Following: None - Disposition Have Diagnosis and Disposition been Completed?: Yes Diagnosis: Abdominal pain Disposition: HOSPITALIZED Disposition Time: 01:35 Condition: GOOD
[2017-08-07] MEDS ORDERED: Morphine 2 mg/ml ISec IVP STA (23:14)
[2017-08-07] MEDS ORDERED: Iohexol 350 MG/100 ML VIAL ONE (23:17)
[2017-08-07 23:58] LABS: BASO # 0.01 K/mm3 (0.0-2.0); BASO % 0.2 % (0.0-3.0); EOS # 0.4 (0.0-0.7); EOS % 6.4 % (1.5-5.0); GRAN # 3.57 (1.4-6.5); GRAN % 63.8 % (50.0-68.0); HEMOGLOBIN 10.1 g/dL (12.0-16.0); LYMPH # 1.2 (1.2-3.4); LYMPH % 20.7 % (22.0-35.0); MEAN CORPUSCULAR HEMOGLOBIN 29.1 pg (25.0-35.0); MEAN CORPUSCULAR HGB CONC 32.7 g/dl (31.0-37.0); MEAN PLATELET VOLUME 10.4 fl (7.0-11.0); MONO # 0.5 (0.1-0.6); MONO % 8.9 % (1.0-6.0); RBC 3.47 10^6/uL (3.5-6.1); WHITE BLOOD COUNT 5.6 10^3/ul (4.5-11.0)
[2017-08-08 00:13] LABS: INR 1.21 (0.93-1.08); PARTIAL THROMBOPLASTIN TIME 31.6 Seconds (25.1-36.5); PROTHROMBIN TIME 13.9 SECONDS (9.4-12.5)
[2017-08-08 00:17] LABS: ALBUMIN 4.1 g/dL (3.0-4.8); ALT/SGPT 22 U/L (7-56); AST/SGOT 24 U/L (14-36); BLOOD UREA NITROGEN 14 mg/dL (7-21); CALCIUM 9.4 mg/dL (8.4-10.5); GFR AFRICAN-AMERICAN > 60; GFR NON-AFRICAN AMERICAN > 60
[2017-08-08] MEDS ORDERED: Morphine 2 mg/ml ISec IVP STA (00:51)
--- NOTE | 2017-08-08 01:15 | CT ---
EXAM: CT Abdomen and Pelvis With Intravenous Contrast EXAM DATE/TIME: 08/07/2017 11:09 PM CLINICAL HISTORY: The patient age is 26 years old and is female; Pain; Abdominal pain; Flank; Right lower quadrant (rlq); Additional info: Rlq pain. Lymphoma history. Facility exam id and description: Ct abdpelciv abd pelvis iv contrast only TECHNIQUE: Axial computed tomography images of the abdomen and pelvis with intravenous contrast. All CT scans at this facility use one or more dose reduction techniques, viz.: automated exposure control; ma/kV adjustment per patient size (including targeted exams where dose is matched to indication; i.e. head); or iterative reconstruction technique. Coronal and sagittal reformatted images were created and reviewed. CONTRAST: 96 mL of OMNI 350 administered intravenously. COMPARISON: CT - PELVIS W/O CONTRAST 2017-08-06 17:21 FINDINGS: Lower thorax: Within the right middle lobe on series 5 image 11, there is a 3 mm nodule. A 2 mm nodule is visualized in the left lower lobe on series 5 image 24. There is a 4 mm subpleural nodule in the left lower lobe on series 5 image 17. ABDOMEN: Liver: No mass. Gallbladder and bile ducts: No calcified stones. No ductal dilation. Pancreas: Normal contour, without acute peripancreatic stranding. Spleen: There is splenomegaly. The spleen measures 18.4 cm in length. In a patient with a history of lymphoma, malignant infiltration is considered. A splenule is visualized inferior to the spleen. An exophytic renal lesion cannot be excluded. Adrenals: No mass. Kidneys and ureters: No hydronephrosis. No solid mass. Stomach and bowel: Mildly distended small bowel loops are visualized with air-fluid levels, new compared to the prior study. The distal small bowel is normal in caliber. This is concerning for obstruction. Appendix: There is borderline distention of the base of the appendix measuring 7 mm in diameter, without progression compared to the prior study. Increased density is also noted within the appendix, suggestive of an appendicolith or residual contrast. PELVIS: Bladder: There is swelling visualized within the right lower quadrant of the abdomen and anterior pelvis, which has progressed. This surrounds the bladder. Reproductive: A hypointense vaginal cancer/tampon is visualized. ABDOMEN and PELVIS: Intraperitoneal space: A small amount of free fluid is identified within the pelvis posteriorly. Bones/joints: No acute fracture. Soft tissues: Abnormal hyperdensity is identified within the right side of the pelvis, consistent with hemorrhage. Along the right pelvic wall, there is a 5.6 x 2.8 cm mass or hematoma of heterogeneous density, without significant progression. Vasculature: No abdominal aortic aneurysm. Lymph nodes: Retroperitoneal and mesenteric lymphadenopathy is identified. One of the enlarged retroperitoneal lymph nodes is identified in the left para-aortic region measuring 2.3 x 1.1 cm on series 2 image 45. Intrapelvic lymphadenopathy is identified. Mildly enlarged inguinal lymph nodes are also seen. IMPRESSION: 1. Abnormal hyperdensity is identified within the right side of the pelvis, consistent with hemorrhage. Along the right pelvic wall, there is a 5.6 x 2.8 cm mass or hematoma of heterogeneous density, without significant progression. 2. There is swelling visualized within the right lower quadrant of the abdomen and anterior pelvis, which has progressed. This surrounds the bladder. Correlation with urinalysis is recommended to exclude cystitis. 3. There is borderline distention of the base of the appendix measuring 7 mm in diameter, without progression compared to the prior study. Due to progression of swelling in the right lower quadrant, a follow-up CT is recommended. 4. Mildly distended small bowel loops are visualized with air-fluid levels, new compared to the prior study, concerning for obstruction. 5. There is splenomegaly. In a patient with a history of lymphoma, malignant infiltration is considered. 6. Retroperitoneal and mesenteric lymphadenopathy is identified. Intrapelvic lymphadenopathy is identified. Mildly enlarged inguinal lymph nodes are also seen. 7. A small amount of free fluid is identified within the pelvis posteriorly. 8. A few small lung nodules are noted above. Correlation with the recent PET/CT is recommended. 9. Additional CT findings described above.
[2017-08-08 01:44] VITALS: O2SAT 98
--- NOTE | 2017-08-08 01:47 | CP.PCM.CON ---
History of Present Illness - History of Present Illness History of Present Illness: Surgery: Dr. Milner CC: RLQ pain s/p lymph node biopsy on same side HPI: Patient is a 26 yo female who presents with evolving RLQ abdominal pain. Patient had IR biopsy of right pelvic lymph node yesterday with small contained area post procedure hemorrhage was noted. Patient describes the pain as cramp like and isolated to RLQ and biopsy area. Patient states the pain now is more like muscle spasms. Shes states she had similar pain post procedure but was instructed to return if symptoms got worse. She denies nausea, vomiting, fever, chillls, diarrhea. She reports tolerating diet and is currently hungry. PMH: UTI, hepatosplenomegaly currently undergoing evaluation/workup to r/o lymphoma PSH: IR biopsies Family: grandparent w/ lymphoma and kidney cancer Social: Social ETOH use, current everyday tobacco use 1ppd Review of Systems - Review of Systems All systems: reviewed and no additional remarkable complaints except Review of Systems: unless stated in HPI - Constitutional Constitutional: absent: Anorexia, Chills, Fever - EENT Eyes: absent: Blind Spots, Blurred Vision Nose/Mouth/Throat: absent: Nasal Congestion, Nasal Trauma - Cardiovascular Cardiovascular: absent: Chest Pain, Dyspnea - Respiratory Respiratory: absent: Cough, Dyspnea - Gastrointestinal Gastrointestinal: Abdominal Pain, Cramping. absent: Bloating, Change in Stool Character, Diarrhea, Excessive Flatus, Hematochezia, Loose Stools, Vomiting - Genitourinary Genitourinary: absent: Hematuria, Pyuria - Musculoskeletal Musculoskeletal: absent: Joint Swelling, Muscle Weakness - Integumentary Integumentary: absent: Bleeding Lesions, Erythema - Neurological Neurological: absent: Syncope, Tremor - Psychiatric Psychiatric: absent: Anxiety, Depression - Endocrine Endocrine: absent: Polydipsia, Polyphagia - Hematologic/Lymphatic Hematologic: absent: Easy Bleeding, Easy Bruising, Lymphadenopathy Past Patient History - Infectious Disease Hx of Infectious Diseases: None - Past Social History Smoking Status: Heavy Smoker > 10 Cigarettes Daily - CARDIAC Hx Pacemaker: No - NEUROLOGICAL Hx Paralysis: No - HEMATOLOGICAL/ONCOLOGICAL Hx Blood Transfusions: No Hx Blood Transfusion Reaction: No - INTEGUMENTARY Hx Eczema: Yes - MUSCULOSKELETAL/RHEUMATOLOGICAL Hx Musculoskeletal Disorders: No - PSYCHIATRIC Hx Anxiety: Yes Hx Substance Use: No - SURGICAL HISTORY Other/Comment: MIGRAINE - ANESTHESIA Hx Anesthesia: No Hx Anesthesia Reactions: No Hx Malignant Hyperthermia: No Meds Allergies/Adverse Reactions: Allergies Allergy/AdvReac Type Severity Reaction Status Date / Time Penicillins Allergy RASH Verified 07/30/17 14:30 Physical Exam - Constitutional Appears: Non-toxic, No Acute Distress - Head Exam Head Exam: ATRAUMATIC, NORMOCEPHALIC - Eye Exam Eye Exam: EOMI, Normal appearance - ENT Exam ENT Exam: Mucous Membranes Moist - Respiratory Exam Respiratory Exam: NORMAL BREATHING PATTERN. absent: Respiratory Distress - Cardiovascular Exam Cardiovascular Exam: REGULAR RHYTHM. absent: Tachycardia - GI/Abdominal Exam GI & Abdominal Exam: Soft, Tenderness (RLQ near biopsy site ). absent: Distended, Guarding, Hernia, Rebound, Rigid - Extremities Exam Extremities exam: Positive for: normal inspection. Negative for: calf tenderness - Neurological Exam Neurological exam: Alert, Oriented x3 - Psychiatric Exam Psychiatric exam: Normal Affect, Normal Mood - Skin Skin Exam: Dry, Normal Color, Warm Results - Vital Signs Recent Vital Signs: Last Vital Signs Temp 99 F 08/07/17 22:45 Pulse 102 H 08/07/17 22:45 Resp 18 08/07/17 22:45 BP 127/80 08/07/17 22:45 Pulse Ox 99 08/07/17 22:45 - Labs Result Diagrams: 08/07/17 23:40 08/07/17 23:40 Labs: Laboratory Results - last 24 hr 08/07/17 08/07/17 08/07/17 23:40 23:40 23:40 WBC 5.6 RBC 3.47 L Hgb 10.1 L Hct 30.9 L MCV 89.0 MCH 29.1 MCHC 32.7 RDW 14.0 Plt Count 123 MPV 10.4 Gran % 63.8 Lymph % (Auto) 20.7 L Rush % (Auto) 8.9 H Eos % (Auto) 6.4 H Baso % (Auto) 0.2 Gran # 3.57 Lymph # (Auto) 1.2 Rush # (Auto) 0.5 Eos # (Auto) 0.4 Baso # (Auto) 0.01 PT 13.9 H INR 1.21 H APTT 31.6 Sodium 143 Potassium 3.8 Chloride 105 Carbon Dioxide 25 Anion Gap 16 BUN 14 Creatinine 0.6 L Est GFR ( Amer) > 60 Est GFR (Non-Af Amer) > 60 Random Glucose 94 Calcium 9.4 Total Bilirubin 0.3 AST 24 ALT 22 Alkaline Phosphatase 45 Total Protein 8.1 Albumin 4.1 Globulin 4.0 Albumin/Globulin Ratio 1.0 L - Impressions Impression: CT: appendix appreciated, no periappencieal inflammation. Air noted inside lumen of appendix Assessment & Plan - Assessment and Plan (Free Text) Assessment: 26 y/o female w/ RLQ abdominal pain most likely related to recent biopsy w/ post procedure hemorrhage, less likely appendicitis Plan: -post procedure bleeding stable on CT imaging -ok for observation overnight -NPO -IVF -no need for abx at this time: if appendicitis present, will become more clinically apparent without abx -warm compress to RLQ/area of biopsy -repeat am labs -will d/w Dr. Alf Bucio PGY3 - Date & Time Date: 08/08/17 Time: 01:46
--- NOTE | 2017-08-08 02:55 | CP.PCM.HP ---
<Ashwin Olmedo - Last Filed: 08/08/17 02:22> History of Present Illness - History of Present Illness History of Present Illness: This patient is a 26 year old female with a PMHx of Lymphoma and Eczema who presents complaining of 10/10, "crampy", abdominal pain that radiates to her back on the right side. Patient states that she had lower abdominal soreness in that region since her CT Guided lymph node biopsy yesterday early afternoon. She went to have a bowel movement around 10 PM yesterday evening and when she strained her abdominal pain exacerbated prompting her to go come to the ED. Laughing and coughing exacerbates the pain. She attempted to use tylenol to relieve the pain without success. FDLMP was yesterday. [place] [facility] [place] and was found to have retroperitoneal mesenteric lymphadenopthy. Dr. Baker (Heme/Onc) was consulted at that time and recommended IR biopsy which was performed by Dr. William Linda. Biopsy of splenic parenchyma and lymph node were taken and pathology was negative for malignancy. HIV, GC, and Hepatitis panel serologies were also negative at that time. ROS POSITIVES: RLQ pain, diarrhea NEGATIVES: Fevers, chills, night sweats, recent weight loss, lightheadedness , dizziness, chest pain, SOB, nausea, vomiting, constipation, increased urinary frequency, dysuria, weakness PMHx: Lymphoma, Eczema PSHx: CT Guided Right pelvic Lymph node biopsy (08/06), LUQ lymph node biopsy ( April 2017) Allergies: Penicillins (Hives) SocialHx: 1 PPD for 5 years, occasional alcohol/marijuana. 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 Is sexually active Hos: April 2017 for retroperitoneal mesenteric lymphadenopathy and UTI. FamHx: Mother - DM, HTN | Father - DM, Kidney CA | Grandmother - Uterine CA Meds: Denies Present on Admission - Present on Admission Any Indicators Present on Admission: No Review of Systems - Review of Systems All systems: reviewed and no additional remarkable complaints except (As per HPI ) Past Patient History - Infectious Disease Hx of Infectious Diseases: None - Past Social History Smoking Status: Heavy Smoker > 10 Cigarettes Daily - CARDIAC Hx Pacemaker: No - NEUROLOGICAL Hx Paralysis: No - HEMATOLOGICAL/ONCOLOGICAL Hx Blood Transfusions: No Hx Blood Transfusion Reaction: No - INTEGUMENTARY Hx Eczema: Yes - MUSCULOSKELETAL/RHEUMATOLOGICAL Hx Musculoskeletal Disorders: No - PSYCHIATRIC Hx Anxiety: Yes Hx Substance Use: No - SURGICAL HISTORY Other/Comment: MIGRAINE - ANESTHESIA Hx Anesthesia: No Hx Anesthesia Reactions: No Hx Malignant Hyperthermia: No Meds Home Medications: Home Medication List Medication Instructions Recorded Confirmed Type Acetaminophen [Tylenol 325mg tab] 650 mg PO Q6H PRN #40 tab 08/08/17 Rx Allergies/Adverse Reactions: Allergies Allergy/AdvReac Type Severity Reaction Status Date / Time Penicillins Allergy RASH Verified 07/30/17 14:30 Physical Exam - Constitutional Appears: Well, Non-toxic, No Acute Distress - Head Exam Head Exam: ATRAUMATIC, NORMAL INSPECTION, NORMOCEPHALIC - Eye Exam Eye Exam: EOMI, Normal appearance. absent: Scleral icterus - ENT Exam ENT Exam: Mucous Membranes Moist - Neck Exam Neck exam: Negative for: Lymphadenopathy - Respiratory Exam Respiratory Exam: Clear to Auscultation Bilateral, NORMAL BREATHING PATTERN. absent: Accessory Muscle Use, Decreased Breath Sounds, Rales, Rhonchi, Wheezes - Cardiovascular Exam Cardiovascular Exam: RRR, +S1, +S2 - GI/Abdominal Exam GI & Abdominal Exam: Soft, Tenderness (RLQ) - Extremities Exam Extremities exam: Positive for: normal capillary refill, normal inspection - Neurological Exam Neurological exam: Alert, Oriented x3 - Psychiatric Exam Psychiatric exam: Normal Affect, Normal Mood - Skin Skin Exam: Dry, Intact, Normal Color, Warm - Additional Findings Additional findings: B/L inguinal lymphadenopathy. No A/P cervical lymphadenopathy, or supracavivular lymphadenopathy Results - Vital Signs Recent Vital Signs: Last Vital Signs Temp 98.5 F 08/08/17 01:43 Pulse 87 08/08/17 01:43 Resp 16 08/08/17 01:43 BP 105/68 08/08/17 01:43 Pulse Ox 98 08/08/17 01:43 - Labs Result Diagrams: 08/07/17 23:40 08/07/17 23:40 Labs: Laboratory Results - last 24 hr 08/07/17 08/07/17 08/07/17 23:40 23:40 23:40 WBC 5.6 RBC 3.47 L Hgb 10.1 L Hct 30.9 L MCV 89.0 MCH 29.1 MCHC 32.7 RDW 14.0 Plt Count 123 MPV 10.4 Gran % 63.8 Lymph % (Auto) 20.[address] [place] % (Auto) 8.9 H Eos % (Auto) 6.4 H Baso % (Auto) 0.2 Gran # 3.57 Lymph # (Auto) 1.2 [place] # (Auto) 0.5 Eos # (Auto) 0.4 Baso # (Auto) 0.01 PT 13.9 H INR 1.21 H APTT 31.6 Sodium 143 Potassium 3.8 Chloride 105 Carbon Dioxide 25 Anion Gap 16 BUN 14 Creatinine 0.6 L Est GFR ( Amer) > 60 Est GFR (Non-Af Amer) > 60 Random Glucose 94 Calcium 9.4 Total Bilirubin 0.3 AST 24 ALT 22 Alkaline Phosphatase 45 Total Protein 8.1 Albumin 4.1 Globulin 4.0 Albumin/Globulin Ratio 1.0 L - Imaging and Cardiology CT scan - pelvis Status: Image reviewed by me, Report reviewed by me Additional comment: IMPRESSION by Dr. Krystle Rose MD 1. Abnormal hyperdensity is identified within the right side of the pelvis, consistent with hemorrhage. Along the right pelvic wall, there is a 5.6 x 2.8 cm mass or hematoma of heterogeneous density, without significant progression. 2. There is swelling visualized within the right lower quadrant of the abdomen and anterior pelvis, which has progressed. This surrounds the bladder. Correlation with urinalysis is recommended to exclude cystitis. 3. There is borderline distention of the base of the appendix measuring 7 mm in diameter, without progression compared to the prior study. Due to progression of swelling in the right lower quadrant, a follow-up CT is recommended. 4. Mildly distended small bowel loops are visualized with air-fluid levels, new compared to the prior study, concerning for obstruction. 5. There is splenomegaly. In a patient with a history of lymphoma, malignant infiltration is considered. 6. Retroperitoneal and mesenteric lymphadenopathy is identified. Intrapelvic lymphadenopathy is identified. Mildly enlarged inguinal lymph nodes are also seen. 7. A small amount of free fluid is identified within the pelvis posteriorly. 8. A few small lung nodules are noted above. Correlation with the recent PET/CT is recommended. 9. Additional CT findings described above. Assessment & Plan - Assessment and Plan (Free Text) Assessment: 26 year old female with PMHx of lymphoma and eczema admitted to [facility] for evaluation and treatment of abdominal pain s/p CT Guided biopsy of right pelvic lymph node. Plan: RLQ Abdominal Pain: 2/2 to hemorrhage/pelvic wall mass CT Abd/Pelvis (Adm): Shows Hemorrhage along right pelvic wall and 5.6x2.8cm mass or hematoma. Borderline distentionof base of appendix measuring 7mm. View report for further details PRN Pain Control with Morphine 2 Q4H for severe pain and Ibuprofen 600 Q6H for moderate pain. Monitor H/H Monitor WBC's IR Consult (Dr. Cj Linda) NPO Fluids. Normal Saline @ 100 mls/hr Systemic Lymphadenopathy Follow up biopsy Lung Nodules (CT Findings) Originally Identified in 2017 Patient will need follow up CT in 2018. Patient seen discussed and examined with Attending (Dr. Venita Kee) Ashwin Olmedo, PGY1 <Erlinda Kee - Last Filed: 08/14/17 01:50> Results - Vital Signs Recent Vital Signs: Last Vital Signs Temp 98.5 F 08/08/17 01:43 Pulse 87 08/08/17 01:43 Resp 16 08/08/17 01:43 BP 105/68 08/08/17 01:43 Pulse Ox 98 08/08/17 01:43 - Labs Result Diagrams: 08/08/17 07:30 08/08/17 07:30
[2017-08-08] MEDS ORDERED: Morphine 2 mg/ml ISec IVP PRN (03:21)
[2017-08-08] MEDS ORDERED: Sodium Chloride 0.9% 1,000 ML IV SCH (03:30)
[2017-08-08 07:40] VITALS: BP 100/53; PULSE 81; RESP 18; TEMP 98.7
[2017-08-08 07:50] LABS: BASO # 0.02 K/mm3 (0.0-2.0); BASO % 0.4 % (0.0-3.0); EOS # 0.4 (0.0-0.7); GRAN # 2.76 (1.4-6.5); GRAN % 52.9 % (50.0-68.0); HEMOGLOBIN 9.3 g/dL (12.0-16.0); LYMPH # 1.5 (1.2-3.4); LYMPH % 28.2 % (22.0-35.0); MEAN CORPUSCULAR HEMOGLOBIN 29.2 pg (25.0-35.0); MEAN CORPUSCULAR HGB CONC 32.7 g/dl (31.0-37.0); MEAN PLATELET VOLUME 10.2 fl (7.0-11.0); MONO # 0.6 (0.1-0.6); MONO % 10.5 % (1.0-6.0); RBC 3.19 10^6/uL (3.5-6.1); RED CELL DISTRIBUTION WIDTH 13.9 % (11.5-14.5); WHITE BLOOD COUNT 5.2 10^3/ul (4.5-11.0)
[2017-08-08 08:04] LABS: ALBUMIN 3.8 g/dL (3.0-4.8); ALT/SGPT 26 U/L (7-56); AST/SGOT 18 U/L (14-36); BLOOD UREA NITROGEN 11 mg/dL (7-21); CALCIUM 9.1 mg/dL (8.4-10.5); GFR AFRICAN-AMERICAN > 60; GFR NON-AFRICAN AMERICAN > 60
--- NOTE | 2017-08-08 12:52 | CP.PCM.DIS ---
<Wilber Finn - Last Filed: 08/08/17 20:14> Provider - Provider Date of Admission: 08/08/17 01:36 Attending physician: Kwabena Kee MD Primary care physician: Moni Chong MD Consults: Interventional radiology: Dr. Linda Time Spent in preparation of Discharge (in minutes): 45 Diagnosis - Discharge Diagnosis (1) Hematoma Status: Acute Priority: High (2) Retroperitoneal lymphadenopathy Status: Acute Priority: High Hospital Course - Lab Results Lab Results: Most Recent Lab Values WBC 5.2 10^3/ul (4.5-11.0) 08/08/17 07:30 RBC 3.19 10^6/uL (3.5-6.1) L 08/08/17 07:30 Hgb 9.3 g/dL (12.0-16.0) L 08/08/17 07:30 Hct 28.4 % (36.0-48.0) L 08/08/17 07:30 MCV 89.0 fl (80.0-105.0) 08/08/17 07:30 MCH 29.2 pg (25.0-35.0) 08/08/17 07:30 MCHC 32.7 g/dl (31.0-37.0) 08/08/17 07:30 RDW 13.9 % (11.5-14.5) 08/08/17 07:30 Plt Count 109 10^3/uL (120.0-450.0) L 08/08/17 07:30 MPV 10.2 fl (7.0-11.0) 08/08/17 07:30 Gran % 52.9 % (50.0-68.0) 08/08/17 07:30 Lymph % (Auto) 28.2 % (22.0-35.0) 08/08/17 07:30 [place] % (Auto) 10.5 % (1.0-6.0) H 08/08/17 07:30 Eos % (Auto) 8.0 % (1.5-5.0) H 08/08/17 07:30 Baso % (Auto) 0.4 % (0.0-3.0) 08/08/17 07:30 Gran # 2.76 (1.4-6.5) 08/08/17 07:30 Lymph # (Auto) 1.5 (1.2-3.4) 08/08/17 07:30 [place] # (Auto) 0.6 (0.1-0.6) 08/08/17 07:30 Eos # (Auto) 0.4 (0.0-0.7) 08/08/17 07:30 Baso # (Auto) 0.02 K/mm3 (0.0-2.0) 08/08/17 07:30 ESR 55 mm/hr (0.0-20.0) H 08/08/17 07:30 PT 13.9 SECONDS (9.4-12.5) H 08/07/17 23:40 INR 1.21 (0.93-1.08) H 08/07/17 23:40 APTT 31.6 Seconds (25.1-36.5) 08/07/17 23:40 Sodium 143 mmol/L (132-148) 08/08/17 07:30 Potassium 3.7 mmol/L (3.6-5.0) 08/08/17 07:30 Chloride 105 mmol/L (98-107) 08/08/17 07:30 Carbon Dioxide 27 mmol/L (21-33) 08/08/17 07:30 Anion Gap 14 (10-20) 08/08/17 07:30 BUN 11 mg/dL (7-21) 08/08/17 07:30 Creatinine 0.6 mg/dl (0.7-1.2) L 08/08/17 07:30 Est GFR ( Amer) > 60 08/08/17 07:30 Est GFR (Non-Af Amer) > 60 08/08/17 07:30 Random Glucose 85 mg/dL (70-110) 08/08/17 07:30 Calcium 9.1 mg/dL (8.4-10.5) 08/08/17 07:30 Total Bilirubin 0.4 mg/dL (0.2-1.3) 08/08/17 07:30 AST 18 U/L (14-36) 08/08/17 07:30 ALT 26 U/L (7-56) 08/08/17 07:30 Alkaline Phosphatase 45 U/L (38-126) 08/08/17 07:30 Total Protein 7.5 g/dL (5.8-8.3) 08/08/17 07:30 Albumin 3.8 g/dL (3.0-4.8) 08/08/17 07:30 Globulin 3.7 gm/dL 08/08/17 07:30 Albumin/Globulin Ratio 1.0 (1.1-1.8) L 08/08/17 07:30 - Hospital Course Hospital Course: This patient is a 26 year old female with a PMHx of Lymphoma and Eczema who presented complaining of 04/02, "crampy", abdominal pain that radiated to her back on the right side found to have a hematoma on imaging s/p biopsy on 08/06. [place] [facility] [place] and was found to have retroperitoneal mesenteric lymphadenopthy. Dr. Baker (Heme/Onc) was consulted at that time and recommended IR biopsy which was performed by Dr. William Linda. Biopsy of splenic parenchyma and lymph node were taken and pathology was negative for malignancy. HIV, GC, and Hepatitis panel serologies were also negative at that time. During encounter this morning patient states pain at site of biopsy had resolved and was now just sore. Patient was seen by interventional radiology and cleared for discharge. Patient hemoglobin and hematocrit were stable showing no signs of active bleed. Patient was in agreement with plan and discharged. Case discussed and reviewed with Dr. Vidhya Finn PGY1 Discharge Exam - Head Exam Head Exam: ATRAUMATIC, NORMOCEPHALIC - Eye Exam Eye Exam: EOMI, Normal appearance - ENT Exam ENT Exam: Mucous Membranes Moist - Neck Exam Neck exam: Normal Inspection - Respiratory Exam Respiratory Exam: Clear to PA & Lateral, NORMAL BREATHING PATTERN, UNREMARKABLE - Cardiovascular Exam Cardiovascular Exam: REGULAR RHYTHM, +S1, +S2 - GI/Abdominal Exam GI & Abdominal Exam: Normal Bowel Sounds, Unremarkable Additional comments: discomfort at site of biopsy upon palpation - Exam Exam: Testicular Tenderness - Extremities Exam Extremities exam: full ROM, pedal pulses present - Back Exam Back exam: NORMAL INSPECTION - Neurological Exam Neurological exam: Alert, CN II-XII Intact, Oriented x3 - Psychiatric Exam Psychiatric exam: Normal Affect, Normal Mood - Skin Skin Exam: Intact, Normal Color, Warm Discharge Plan - Discharge Medications Prescriptions: Acetaminophen [Tylenol 325mg tab] 650 mg PO Q6H PRN #40 tab PRN Reason: Fever >100.4 F - Follow Up Plan Condition: GOOD Disposition: HOME/ ROUTINE Instructions: Smoking: Not Just Harmful to Your Lungs and Heart, Anxiety, Adult (DC), Acute Abdomen (Belly Pain) Additional Instructions: 1. Please follow up with your PMD Dr. Chong within 3-5 business days regarding admission. 2. Please continue to follow up with your oncologist. 3. Do not hesitate to return to the emergency department if symptoms return or worsen. 4. Please fill and take prescription as prescribed. Referrals: Moni Chong MD [Primary Care Provider] - <Kwabena Kee - Last Filed: 08/09/17 13:57> Provider - Provider Date of Admission: 08/08/17 01:36 Attending physician: Kwabena Kee MD Primary care physician: Moni Chong MD Hospital Course - Lab Results Lab Results: Most Recent Lab Values WBC 5.2 10^3/ul (4.5-11.0) 08/08/17 07:30 RBC 3.19 10^6/uL (3.5-6.1) L 08/08/17 07:30 Hgb 9.3 g/dL (12.0-16.0) L 08/08/17 07:30 Hct 28.4 % (36.0-48.0) L 08/08/17 07:30 MCV 89.0 fl (80.0-105.0) 08/08/17 07:30 MCH 29.2 pg (25.0-35.0) 08/08/17 07:30 MCHC 32.7 g/dl (31.0-37.0) 08/08/17 07:30 RDW 13.9 % (11.5-14.5) 08/08/17 07:30 Plt Count 109 10^3/uL (120.0-450.0) L 08/08/17 07:30 MPV 10.2 fl (7.0-11.0) 08/08/17 07:30 Gran % 52.9 % (50.0-68.0) 08/08/17 07:30 Lymph % (Auto) 28.2 % (22.0-35.0) 08/08/17 07:30 [place] % (Auto) 10.5 % (1.0-6.0) H 08/08/17 07:30 Eos % (Auto) 8.0 % (1.5-5.0) H 08/08/17 07:30 Baso % (Auto) 0.4 % (0.0-3.0) 08/08/17 07:30 Gran # 2.76 (1.4-6.5) 08/08/17 07:30 Lymph # (Auto) 1.5 (1.2-3.4) 08/08/17 07:30 [place] # (Auto) 0.6 (0.1-0.6) 08/08/17 07:30 Eos # (Auto) 0.4 (0.0-0.7) 08/08/17 07:30 Baso # (Auto) 0.02 K/mm3 (0.0-2.0) 08/08/17 07:30 ESR 55 mm/hr (0.0-20.0) H 08/08/17 07:30 PT 13.9 SECONDS (9.4-12.5) H 08/07/17 23:40 INR 1.21 (0.93-1.08) H 08/07/17 23:40 APTT 31.6 Seconds (25.1-36.5) 08/07/17 23:40 Sodium 143 mmol/L (132-148) 08/08/17 07:30 Potassium 3.7 mmol/L (3.6-5.0) 08/08/17 07:30 Chloride 105 mmol/L (98-107) 08/08/17 07:30 Carbon Dioxide 27 mmol/L (21-33) 08/08/17 07:30 Anion Gap 14 (10-20) 08/08/17 07:30 BUN 11 mg/dL (7-21) 08/08/17 07:30 Creatinine 0.6 mg/dl (0.7-1.2) L 08/08/17 07:30 Est GFR ( Amer) > 60 08/08/17 07:30 Est GFR (Non-Af Amer) > 60 08/08/17 07:30 Random Glucose 85 mg/dL (70-110) 08/08/17 07:30 Calcium 9.1 mg/dL (8.4-10.5) 08/08/17 07:30 Total Bilirubin 0.4 mg/dL (0.2-1.3) 08/08/17 07:30 AST 18 U/L (14-36) 08/08/17 07:30 ALT 26 U/L (7-56) 08/08/17 07:30 Alkaline Phosphatase 45 U/L (38-126) 08/08/17 07:30 Total Protein 7.5 g/dL (5.8-8.3) 08/08/17 07:30 Albumin 3.8 g/dL (3.0-4.8) 08/08/17 07:30 Globulin 3.7 gm/dL 08/08/17 07:30 Albumin/Globulin Ratio 1.0 (1.1-1.8) L 08/08/17 07:30 Attending/Attestation - Attestation I have personally seen and examined this patient.: Yes I have fully participated in the care of the patient.: Yes I have reviewed all pertinent clinical information, including history, physical exam and plan: Yes Notes (Text): I have seen and examined the patient at bedside. Agree with the above note with the following additions/ exceptions: Briefly this is 26 year old female with history of lymphoma and eczema who was admitted for evaluation of pain in the RLQ and suprapubic area post LN biopsy. This morning patient feels fine. Pain has resolved. Still has very slight tenderness. LMP was 1 day ago. Hb dropped very slightly from 10 to [address] Discuss[address] Linda who reviewed scan as well. Patient will be sent home. She is able to eat without any problem and is able to walk in the hallway in a steady state. Upon discharge patient will follow up with Dr Chong and Dr Tobar. It was noted above in the residents note that patient was sent for biposy by Dr Baker which is incorrect. She was actually referred by Dr Tobar. Dr Kwabena Kee.
--- NOTE | 2017-08-08 17:15 | CP.PCM.PCO ---
Physician Communication Note - Physician Communication Note Physician Communication Note: No clinical or imaging indication of appendicitis - ok to dc
--- NOTE | 2017-08-08 20:34 | CON ---
DATE: 08/08/2017 HISTORY OF PRESENT ILLNESS: The patient was admitted status post a biopsy and pain. White count is 5, hemoglobin 9.1. SMA-18 is relatively normal. Coags are slightly elevated. ProTime is otherwise unremarkable. There was a CAT scan done yesterday, status post biopsy, showing a hematoma. I am not able to access this at the moment to report. It is a 5-cm hematoma that was not there before. Questionably distention of the appendix. There is a pathology report showing a lymph node. Needle biopsy was done. There was no evidence of lymphoma in April 2017. ASSESSMENT AND PLAN: Today, the abdomen is soft. She is afebrile. Vital signs are normal. I will follow peripherally without surgical intent. Certainly, without any problem with the appendix, I do not think this is appendicitis. Silvio Milner MD
[2017-08-09] MEDS ORDERED: Pantoprazole 40 mg EC Tab PO SCH (06:00)
== END 2017-08-08 16:20 | disposition home or self-care (01) ==
LOC: ED 22:44 → ERH 08-08 01:36 → 5RSO 08-08 02:21
PROVIDERS: ADMIT Hospitalist; ATTEND Hospitalist
DX: L76.32 Postprocedural hematoma of skin and subcutaneous tissue following other procedure (principal); C85.90 Non-Hodgkin lymphoma, unspecified, unspecified site; R59.0 Localized enlarged lymph nodes; R16.1 Splenomegaly, not elsewhere classified; R10.31 Right lower quadrant pain; L30.9 Dermatitis, unspecified; Y84.8 Other medical procedures as the cause of abnormal reaction of the patient, or of later complication, without mention of misadventure at the time of the procedure
CPT/HCPCS: 36415; 74177; 80053; 85025; 85610; 85651; 85730; 96361; 96374; 96376; 99285; G0378; J2270; J7040; Q9967

== ENCOUNTER 2017-09-17 18:02 | Emergency (ER) | payer MEDICAID, OTHER ==
[2017-09-17 18:36] VITALS: RESP 18; O2SAT 99; BMI 37.0
--- NOTE | 2017-09-17 20:02 | ED PDOC ---
"Arrival/HPI - General Chief Complaint: Abdominal Pain Time Seen by Provider: 09/17/17 18:48 Historian: Patient - History of Present Illness Narrative History of Present Illness (Text): 09/17/17 19:54 Pt is a 26 year old f with pmh of hepatomegaly and splenomegaly with no significant findings, who present to the ED with left side abdominal pain with no radiation x 2 days. States she was seen in [facility] ED last night for left LBP and abdominal pain but left AMA before tests and treatment done. Pt reports improvement in pain but c/o a low grade ache with pressure. Was assessed here at [facility] with Dr. Palak Chong, distributor advertising material Angel Briscoe, and surgeon, Dr. Linda whereby 2 biopsies were done in April 2017 and June 2017. At that time, there was no definitive Dx and was told to avoid any direct trauma to the spleen. Pt states the left back began to ache and refer to the [facility] recently. Denies chest pain, sob, fever, chills, weight loss, nausea, vomiting or diarrhea. Time/Duration: 24 hours Symptom Onset: Gradual Symptom Course: Unchanged Quality: Aching Severity Level: 2 Activities at Onset: Rest, Light Context: Home Past Medical History - Provider Review Nursing Documentation Reviewed: Yes - Travel History Have you recently traveled outside [place] w/in the past 3 mons?: No - Infectious Disease Hx of Infectious Diseases: None - Past Medical History Past Medical History: No Previous - Cardiac Hx Pacemaker: No - Neurological Hx Paralysis: No - Endocrine/Metabolic Other/Comment: enlarge spleen - Hematological/Oncological Hx Blood Transfusions: No Hx Blood Transfusion Reaction: No - Integumentary Hx Eczema: Yes - Musculoskeletal/Rheumatological Hx Musculoskeletal Disorders: No - Gastrointestinal Hx Gastrointestinal Disorders: No - Genitourinary/Gynecological Hx Genitourinary Disorders: No - Psychiatric Hx Anxiety: Yes Hx Substance Use: No - Past Surgical History Past Surgical History: No Previous - Surgical History Other/Comment: MIGRAINE - Anesthesia Hx Anesthesia: No Hx Anesthesia Reactions: No Hx Malignant Hyperthermia: No - Suicidal Assessment Feels Threatened In Home Enviroment: No Family/Social History - Physician Review Nursing Documentation Reviewed: Yes Family/Social History: Unknown Family HX Smoking Status: Heavy Smoker > 10 Cigarettes Daily Hx Alcohol Use: Yes (OCCASIONAL- [employer] [place] [employer]) Hx Substance Use: No Hx Substance Use Treatment: No Allergies/Home Meds Allergies/Adverse Reactions: Allergies Penicillins Allergy (Verified 09/17/17 18:27) RASH Home Medications: Home Meds Medication Instructions Recorded Confirmed Iron,Carb/Vit C/Vit B12/Folic 1 tab PO DAILY 09/17/17 09/17/17 [Iron 100 Plus 250 mg-25 Mcg-1 mg-100 mg] Review of Systems - Review of Systems Constitutional: Normal. absent: Fatigue, Weight Change, Fevers, Night Sweats, Other Eyes: Normal ENT: Normal Respiratory: Normal Cardiovascular: Normal Gastrointestinal: Normal, Abdominal Pain (left side) Genitourinary Female: Normal Musculoskeletal: Normal Skin: Normal Neurological: Normal Endocrine: Normal Hemo/Lymphatic: Normal Psychiatric: Normal Physical Exam Vital Signs Reviewed: Yes Vital Signs Temp Pulse Resp BP Pulse Ox 09/17/17 23:00 75 18 119/74 99 09/17/17 21:24 98.4 F 79 18 104/62 99 09/17/17 18:29 99.1 F 95 H 18 103/65 99 09/17/17 18:27 99.1 F 100 H 19 103/65 96 Temperature: Afebrile Blood Pressure: Normal Pulse: Tachycardic Respiratory Rate: Normal Appearance: Positive for: Well-Appearing, Non-Toxic, Comfortable Pain Distress: None Mental Status: Positive for: Alert and Oriented X 3 - Systems Exam Head: Present: Atraumatic, Normocephalic Pupils: Present: PERRL Extroacular Muscles: Present: EOMI Conjunctiva: Present: Normal Mouth: Present: Moist Mucous Membranes Neck: Present: Normal Range of Motion Respiratory/Chest: Present: Clear to Auscultation, Good Air Exchange. No: Respiratory Distress, Accessory Muscle Use Cardiovascular: Present: Regular Rate and Rhythm, Normal S1, S2. No: Murmurs Abdomen: Present: Normal Bowel Sounds. No: Tenderness, Distention, Peritoneal Signs Back: Present: Normal Inspection Upper Extremity: Present: Normal Inspection. No: Cyanosis, Edema Lower Extremity: Present: Normal Inspection. No: Edema Neurological: Present: GCS=15, CN II-XII Intact, Speech Normal Skin: Present: Warm, Dry, Normal Color. No: Rashes Psychiatric: Present: Alert, Oriented x 3, Normal Insight, Normal Concentration Medical Decision Making ED Course and Treatment: 09/17/17 20:02 Impression Pt is a 26 year old f with pmh of hepatosplenomegaly with no sig findings, who present tonight with left side abdominal pain with no radiation x 2 days. PE unremarkable Plan CT abd and pelvis Labs assess and dispo Progress Note 09/17/17 22:57 FINDINGS: Limitations: Lack of intravenous contrast. Lower thorax: RLL calcified granuloma. Few pulmonary nodules, up to 0.3 cm, stable. ABDOMEN: Liver: Unremarkable. Gallbladder and bile ducts: No calcified stones. No ductal dilation. Pancreas: Unremarkable. No ductal dilation. Spleen: Enlarged, 16.2 cm craniocaudad dimension, grossly stable. Adrenals: No mass. Kidneys and ureters: No renal calculi. No hydronephrosis. Stomach and bowel: No definite mural thickening. No obstruction. Appendix: Normal caliber. No inflammation. PELVIS: Bladder: Unremarkable. No stones. Reproductive: 3.0 x 2.8 x 2.9 cm hypodense lesion within LEFT ovary. ABDOMEN and PELVIS: SHEN MOHAN | Final Radiology Report CONFIDENTIALITY STATEMENT This report is intended only for use by the referring physician, and only in accordance with law. If you received this in error, call [phone]. Page 2 of 2 Intraperitoneal space: No significant fluid collection. No free air. Bones/joints: No acute fracture. Soft tissues: Tiny umbilical hernia containing fat. Vasculature: Unremarkable. No aneurysm. Lymph nodes: Multiple subcentimeter/several mildly enlarged short axis lymph nodes within abdomen and pelvis, grossly stable. IMPRESSION: 1. Probable LEFT ovarian cyst. Consider ultrasound DW pt findings and advised to f/u with US; declined further testing at this time VSS and ambulated well out of the ED - Lab Interpretations Microbiology Results: Microbiology Results 09/17/17 23:13 Urine,Clean Catch Urine Culture - Final No Growth (<1,000 CFU/ML) Lab Results: 09/17/17 20:35 09/17/17 20:35 Lab Results 09/17/17 20:35: Sodium 143, Potassium 3.9, Chloride 106, Carbon Dioxide 25, Anion Gap 16, BUN 16, Creatinine 0.6 L, Est GFR ( Amer) > 60, Est GFR ( Non-Af Amer) > 60, Random Glucose 89, Calcium 9.6, Total Bilirubin 0.5, AST 20, ALT 34, Alkaline Phosphatase 48, Total Protein 8.5 H, Albumin 4.2, Globulin 4.3 , Albumin/Globulin Ratio 1.0 L 09/17/17 20:35: Urine Color Yellow, Urine Appearance Sl cloudy, Urine pH 5.5, Ur Specific [place] >= 1.030, Urine Protein Trace H, Urine Glucose (UA) Negative , Urine Ketones Trace H, Urine Blood Negative, Urine Nitrate Negative, Urine Bilirubin Small H, Urine Urobilinogen 0.2, Ur Leukocyte Esterase Trace H, Urine RBC Negative, Urine WBC 0 - 2, Ur Epithelial Cells 6 - 8, Urine Bacteria Trace 09/17/17 20:35: WBC 5.0, RBC 3.81, Hgb 11.2 L, Hct 33.3 L, MCV 87.4, MCH 29.4, MCHC 33.6, RDW 14.4, Plt Count 122, MPV 10.4 - RAD Interpretation Radiology Orders: 09/17/17 19:30 ABD & PELVIS W/O PO OR IV CONT [CT] Stat Disposition/Present on Arrival - Present on Arrival Any Indicators Present on Arrival: Yes History of DVT/PE: No History of Uncontrolled Diabetes: No Urinary Catheter: No History of Decub. Ulcer: No History Surgical Site Infection Following: None - Disposition Have Diagnosis and Disposition been Completed?: Yes Diagnosis: Ovarian cyst, Left sided abdominal pain, Abdominal pain, Back pain Disposition: HOME/ ROUTINE Disposition Time: 22:59 Patient Plan: Discharge Condition: GOOD Discharge Instructions (ExitCare): Ovarian Cysts Additional Instructions: Dear Shen, It is recommended that you follow up with a dough sheeter in the next week and receive an ultrasound examination. If you have worsening of symptoms in the next 24 hours, return to the ER for evaluation. All the best in your care LEANNA Flores Prescriptions: Naproxen 500 mg PO Q12 #10 tablet Referrals: Moni Chong MD [Primary Care Provider] - Follow up with primary Kevin Eubanks MD [Staff Provider] - Follow up with primary Gabriel Scherer MD [Staff Provider] - Follow up with primary Forms: [employer] (Malay), WORK NOTE"
[2017-09-17 20:50] LABS: ALBUMIN 4.2 g/dL (3.0-4.8); ALT/SGPT 34 U/L (7-56); AST/SGOT 20 U/L (14-36); BLOOD UREA NITROGEN 16 mg/dL (7-21); CALCIUM 9.6 mg/dL (8.4-10.5); GFR AFRICAN-AMERICAN > 60; GFR NON-AFRICAN AMERICAN > 60
[2017-09-17 20:59] LABS: HEMOGLOBIN 11.2 g/dL (12.0-16.0); MEAN CELL VOLUME 87.4 fl (80.0-105.0); MEAN CORPUSCULAR HEMOGLOBIN 29.4 pg (25.0-35.0); MEAN CORPUSCULAR HGB CONC 33.6 g/dl (31.0-37.0); MEAN PLATELET VOLUME 10.4 fl (7.0-11.0); RBC 3.81 10^6/uL (3.5-6.1); RED CELL DISTRIBUTION WIDTH 14.4 % (11.5-14.5)
[2017-09-17 21:00] LABS: PH,URINE 5.5 (4.7-8.0); URINE BILIRUBIN SMALL (NEGATIVE); URINE BLOOD NEGATIVE (NEGATIVE); URINE GLUCOSE (UA) NEGATIVE (NEGATIVE); URINE LEUKOCYTE ESTERASE TRACE Leu/uL (NEGATIVE); URINE PROTEIN TRACE mg/dL (<30 mg/dL); URINE UROBILINOGEN 0.2 E.U./dL (<1 E.U./dL)
[2017-09-17 21:02] LABS: URINE APPEARANCE SL CLOUDY (CLEAR); URINE COLOR YELLOW (YELLOW)
[2017-09-17 21:09] LABS: URINE BACTERIA TRACE (NEG); URINE RBC NEGATIVE /hpf (0-2); URINE WBC 0 - 2 /hpf (0-6)
[2017-09-17 21:41] VITALS: TEMP 98.4
--- NOTE | 2017-09-17 22:26 | CT ---
EXAM: CT Abdomen and Pelvis Without Intravenous Contrast CLINICAL HISTORY: 26 years old, female; Pain; Abdominal pain; Localized; Left; Additional info: Left abdominal pain TECHNIQUE: Axial computed tomography images of the abdomen and pelvis without intravenous contrast. All CT scans at this facility use one or more dose reduction techniques, viz.: automated exposure control; ma/kV adjustment per patient size (including targeted exams where dose is matched to indication; i.e. head); or iterative reconstruction technique. Coronal and sagittal reformatted images were created and reviewed. COMPARISON: CT - ABD PELVIS IV CONTRAST ONLY 2017-08-07 23:51 FINDINGS: Limitations: Lack of intravenous contrast. Lower thorax: RLL calcified granuloma. Few pulmonary nodules, up to 0.3 cm, stable. ABDOMEN: Liver: Unremarkable. Gallbladder and bile ducts: No calcified stones. No ductal dilation. Pancreas: Unremarkable. No ductal dilation. Spleen: Enlarged, 16.2 cm craniocaudad dimension, grossly stable. Adrenals: No mass. Kidneys and ureters: No renal calculi. No hydronephrosis. Stomach and bowel: No definite mural thickening. No obstruction. Appendix: Normal caliber. No inflammation. PELVIS: Bladder: Unremarkable. No stones. Reproductive: 3.0 x 2.8 x 2.9 cm hypodense lesion within LEFT ovary. ABDOMEN and PELVIS: Intraperitoneal space: No significant fluid collection. No free air. Bones/joints: No acute fracture. Soft tissues: Tiny umbilical hernia containing fat. Vasculature: Unremarkable. No aneurysm. Lymph nodes: Multiple subcentimeter/several mildly enlarged short axis lymph nodes within abdomen and pelvis, grossly stable. IMPRESSION: 1. Probable LEFT ovarian cyst. Consider ultrasound. 2. Splenomegaly and abdominal/pelvic lymphadenopathy. Clinical correlation is needed. 3. Pulmonary nodules. For low-risk patients, no follow-up is necessary. For high-risk patients (smoking history or other known risk factors) an optional CT at 12 months could be performed. 4. Incidental/non-acute findings are described above.
[2017-09-17 23:15] VITALS: BP 119/74; PULSE 75
== END 2017-09-17 23:16 | disposition home or self-care (01) ==
LOC: ED 18:02
DX: R10.9 Unspecified abdominal pain (principal); M54.9 Dorsalgia, unspecified; N83.202 Unspecified ovarian cyst, left side

== ENCOUNTER 2017-09-29 22:58 | Emergency (ER) | payer OTHER ==
[2017-09-29 22:58] VITALS: BMI 38.0
--- NOTE | 2017-09-29 23:07 | ED PDOC ---
"Arrival/HPI <Addison Stephen - Last Filed: 09/30/17 01:59> - General Historian: Patient <Osbaldo Dick - Last Filed: 09/30/17 02:17> - General Time Seen by Provider: 09/29/17 23:05 - History of Present Illness Narrative History of Present Illness (Text): 09/29/17 23:07 26 y/o female, pmh including splenomegaly, penicillin allergy, c/o cough x 4 days with chest pain and the fever started today. Dry coughing, associated with the pleuritic pain, pain on the rt. side of the chest, no recent traveling , no palpitation, no night sweat, no change in vision, no other medical or psychological complaints. (Osbaldo Dick) Past Medical History - Provider Review Nursing Documentation Reviewed: Yes - Infectious Disease Hx of Infectious Diseases: None - Past Medical History Past Medical History: No Previous - Cardiac Hx Pacemaker: No - Neurological Hx Paralysis: No - Endocrine/Metabolic Other/Comment: enlarge spleen - Hematological/Oncological Hx Blood Transfusions: No Hx Blood Transfusion Reaction: No - Integumentary Hx Eczema: Yes - Musculoskeletal/Rheumatological Hx Musculoskeletal Disorders: No - Gastrointestinal Hx Gastrointestinal Disorders: No - Genitourinary/Gynecological Hx Genitourinary Disorders: No - Psychiatric Hx Anxiety: Yes Hx Substance Use: No - Past Surgical History Past Surgical History: No Previous - Surgical History Other/Comment: MIGRAINE - Anesthesia Hx Anesthesia: No Hx Anesthesia Reactions: No Hx Malignant Hyperthermia: No - Suicidal Assessment Feels Threatened In Home Enviroment: No <Osbaldo Dick - Last Filed: 09/30/17 02:17> Family/Social History - Physician Review Nursing Documentation Reviewed: Yes Family/Social History: Unknown Family HX Smoking Status: Heavy Smoker > 10 Cigarettes Daily Hx Alcohol Use: Yes (OCCASIONAL- [employer] [place] [employer]) Hx Substance Use: No Hx Substance Use Treatment: No <Osbaldo Dick - Last Filed: 09/30/17 02:17> Allergies/Home Meds <Addison Stephen - Last Filed: 09/30/17 01:59> <Osbaldo Dick - Last Filed: 09/30/17 02:17> Allergies/Adverse Reactions: Allergies Penicillins Allergy (Verified 09/17/17 18:27) RASH Home Medications: Home Meds Medication Instructions Recorded Confirmed Iron,Carb/Vit C/Vit B12/Folic 1 tab PO DAILY 09/17/17 09/29/17 [Iron 100 Plus 250 mg-25 Mcg-1 mg-100 mg] Review of Systems - Review of Systems Constitutional: Fatigue, Fevers Eyes: absent: Vision Changes ENT: absent: Hearing Changes Respiratory: Cough, Sputum. absent: SOB, Wheezing Cardiovascular: absent: Chest Pain Gastrointestinal: absent: Abdominal Pain, Nausea, Vomiting Skin: absent: Rash, Pruritis Psychiatric: absent: Anxiety, Depression <Osbaldo Dick - Last Filed: 09/30/17 02:17> Physical Exam Vital Signs Reviewed: Yes Temperature: Febrile Blood Pressure: Normal Pulse: Tachycardic Respiratory Rate: Normal Appearance: Positive for: Well-Appearing, Non-Toxic, Comfortable Pain Distress: Mild Mental Status: Positive for: Alert and Oriented X 3 - Systems Exam Head: Present: Atraumatic, Normocephalic Pupils: Present: PERRL Extroacular Muscles: Present: EOMI Conjunctiva: Present: Normal Mouth: Present: Moist Mucous Membranes Nose (Internal): Present: Normal Inspection, No Active Bleeding. No: Rhinorrhea Neck: Present: Normal Range of Motion Respiratory/Chest: Present: Clear to Auscultation, Good Air Exchange, Rhonchi. No: Respiratory Distress, Accessory Muscle Use, Wheezes, Decreased Breath Sounds , Rales, Retracting, Tachypneic, Tender to Palpation Cardiovascular: Present: Regular Rate and Rhythm, Normal S1, S2. No: Murmurs Abdomen: No: Tenderness, Distention, Peritoneal Signs Back: Present: Normal Inspection Upper Extremity: Present: Normal Inspection. No: Cyanosis, Edema Lower Extremity: Present: Normal Inspection. No: Edema Neurological: Present: GCS=15, CN II-XII Intact, Speech Normal, Motor Func Grossly Intact, Gait Normal, Memory Normal Skin: Present: Warm, Dry, Normal Color. No: Rashes Psychiatric: Present: Alert, Oriented x 3, Normal Insight, Normal Concentration <Osbaldo Dick - Last Filed: 09/30/17 02:17> Vital Signs Temp Pulse Resp BP Pulse Ox 09/30/17 01:15 99.8 F H 95 H 19 102/50 L 97 09/29/17 23:01 100.2 F H 123 H 18 119/68 99 Medical Decision Making <Addison Stephen - Last Filed: 09/30/17 01:59> - RAD Interpretation Campaign Advisor: Radiologist <Osbaldo Dick - Last Filed: 09/30/17 02:17> ED Course and Treatment: 09/29/17 23:21 -labs/cardiac enzyme -ekg -cxr -IVF/tylenol -observe and reassess 09/30/17 00:24 -WBC<4000, Lactic acid 2.1, febrile, tachycardia. Code sepsis activated, IV azatem and azithromycin ordered. -Rapid flu is positive, tamiflu ordered. 09/30/17 00:47 -Urine hcg is negative -EKG Sinus Bradycardia @ 93 BPM, no ST elevation or depression, [id number] noted on the EKG, T wave inversion on the lead III -CTA is pending -Chest xray no active disease -Labs wbc is less than 4000, lactic acid 2.1 -Cardiac enzyme is negative -UA show +UTI -Pt. stated that she feels completely relief, doesn't wanna stay for the CTA result or for admission, risk and benefits explained -ER attending DR. Stephen awared. Pt. is aox4, fully awake and alert, request to sign out. -AMA ER AMA ER The patient refuses to stay in the Emergency Room (ER) to continue the care and wishes to leave the emergency department against my medical advice. Patient was told that staying in the ER is necessary and a full explanation of the reasons why was given, and understood by the patient with alert and oriented x4. The risk of leaving were explained in laymans term and including but not limited to sepsis, organ failure, endocarditis, pulmonary embolism, septic shock, bacterimia, pain, worsening of condition, permanent disability and from an undiagnosed or untreated condition. The patient accepts these risks, and is in my judgment is competent and capable of understanding the clinical situation and explanation of the risk of leaving. The patient is able to verbally repeated me back the above explained risks and benefits back to me, and verbally expressed understanding. Patient was given the opportunity to ask questions and change mind. The patient was instructed regarding the best care for the present symptoms, and to follow up as soon as possible with the primary care doctor including specialist or return to the emergency department at any time for continuing care. YOU SIGN OUT AGAINST MEDICAL ADVICE. YOU ARE ADVISED TO STAY IN THE HOSPITAL FOR ADMISSION FOR SEPSIS AND INFLUENZA/URINARY TRACT INFECTION. you can return to the ER any time for continue of the care. you are given macrobid and tamiflu , tylenol, stay hydrated, follow up with your own pmd and infectious disease within 2 days, return to the ER for any new or worsening signs or symptoms. 09/30/17 02:16 -CTA show no acute findings. (Osbaldo Dick) - Lab Interpretations Lab Results: 09/29/17 23:35 09/29/17 23:35 Lab Results 09/29/17 23:55: Urine Color Yellow, Urine Appearance Sl cloudy, Urine pH 6.0, Ur Specific [place] >= 1.030, Urine Protein 30 H, Urine Glucose (UA) Negative, Urine Ketones Trace H, Urine Blood Negative, Urine Nitrate Negative, Urine Bilirubin Small H, Urine Urobilinogen 2.0 H, Ur Leukocyte Esterase Small H, Urine RBC 0 - 2, Urine WBC 5 - 10, Ur Epithelial Cells Many, Urine Bacteria Small 09/29/17 23:35: pO2 90 H, VBG pH 7.43, VBG pCO2 40.0, VBG HCO3 26.5, VBG Total CO2 27.7, VBG O2 Sat (Calc) 98.9 H, VBG Base Excess 2.0, VBG Potassium 3.1 L, Sodium 135.0, Chloride 104.0, Glucose 118 H, Lactate 2.1, FiO2 21.0, Venous Blood Potassium 3.1 L 09/29/17 23:35: D-Dimer, Quantitative 853 H 09/29/17 23:35: WBC 3.5 L D, RBC 3.54, Hgb 9.7 L, Hct 29.5 L, MCV 83.3 D, MCH 27.4, MCHC 32.9, RDW 13.8, Plt Count 124, MPV 11.7 H, Gran % 36.0 L, Lymph % ( Auto) 44.2 H, [place] % (Auto) 16.4 H, Eos % (Auto) 2.3, Baso % (Auto) 1.1, Gran # 1.27 L, Lymph # (Auto) 1.6, [place] # (Auto) 0.6, Eos # (Auto) 0.1, Baso # (Auto) 0.04 09/29/17 23:35: Sodium 137, Chloride 101, Potassium 3.3 L, Carbon Dioxide 24, Anion Gap 16, BUN 12, Creatinine 0.7, Est GFR ( Amer) > 60, Est GFR (Non- Af Amer) > 60, Random Glucose 120 H, Calcium 8.6, Magnesium 2.1, Total Bilirubin 0.4, AST 71 H D, ALT 70 H, Alkaline Phosphatase 62, Lactate Dehydrogenase 924 H, Total Creatine Kinase 39, Troponin I < 0.01, Total Protein 7.3, Albumin 3.5, Globulin 3.8, Albumin/Globulin Ratio 0.9 L 09/29/17 23:35: Influenza Typ A,B (EIA) Pos for influenza a H - RAD Interpretation Radiology Orders: 09/29/17 23:13 CHEST TWO VIEWS (PA/LAT) [RAD] Stat 09/30/17 00:32 ANGIO CHEST PE PROTOCOL [CT] Stat Chest xray: CTA Chest: Soft tissue density in the anterior mediastinum with an appearance suggestive of residual thymus. However upon reviewing prior reports, a history of lymphoma was reveal thus I would recommend correlation with prior studies as well as followup to exclude recurrent disease. There are few tiny mediastinal lymph nodes elsewhere which are enlarged by CT criteria. There are no enlarged hilar lymph nodes. The spleen is massively enlarged similar to prior. SHEN MOHAN | Final Radiology Report CONFIDENTIALITY STATEMENT This report is intended only for use by the referring physician, and only in accordance with law. If you received this in error, call [phone]. Page 2 of 2 No pulmonary embolism. No aortic dissection or aneurysm. No pleural or pericardial effussions. There are 3 mm nodules in the right lung image 113 and in left lung images 138, 143, 156 similar to prior. IMPRESSION: No acute findings. Thank you for allowing us to participate in the care of your patient. Dictated and Authenticated by: China Mojica MD 09/30/2017 2:10 AM Eastern Time ([place] & [place]) (Osbaldo Dick) - Medication Orders Current Medication Orders: Discontinued Medications Acetaminophen (Tylenol 325mg Tab) 650 mg PO STAT STA Stop: 09/29/17 23:14 Last Admin: 09/29/17 23:41 Dose: 650 mg MAR Pain/Vitals Document 09/29/17 23:41 JOL (Rec: 09/29/17 23:41 [id number] Pain Reassessment Is This A Pain ReAssessment? No Sleep Is patient sleeping during reassessment? No Presence of Pain Presence of Pain Yes Pain Scale Used Pain Scale Used Numeric Location Pain Location Body [employer] Driller Intensity 4 Sodium Chloride (Sodium Chloride 0.9%) 1,000 mls @ 999 mls/hr IV .Q1H1M STA Stop: 09/30/17 00:13 Last Admin: 09/29/17 23:35 Dose: 999 mls/hr eMAR Start Stop Document 09/29/17 23:35 JOL (Rec: 09/29/17 23:41 [id number] Intravenous Solution Start Date 09/29/17 Start Time 23:40 End Date 09/30/17 End time 00:41 Total Infusion Time 61 Aztreonam (Azactam 1 Gm) 100 mls @ 100 mls/hr IVPB STAT STA PRN Reason: Protocol Stop: 09/30/17 01:20 Last Admin: 09/30/17 00:44 Dose: 100 mls/hr eMAR Start Stop Document 09/30/17 00:44 JOL (Rec: 09/30/17 00:44 [id number] Intravenous Solution Start Date 09/30/17 Start Time 00:44 End Date 09/30/17 End time 01:44 Total Infusion Time 60 Azithromycin (Zithromax 500mg In Ns) 500 mg in 250 mls @ 167 mls/hr IVPB STAT STA PRN Reason: Protocol Stop: 09/30/17 01:57 Last Admin: 09/30/17 01:08 Dose: 167 mls/hr eMAR Start Stop Document 09/30/17 01:08 JOL (Rec: 09/30/17 01:12 [id number] Intravenous Solution Start Date 09/30/17 Start Time 01:11 End Date 09/30/17 End time 02:41 Total Infusion Time 90 Oseltamivir Phosphate (Tamiflu Cap) 75 mg PO STAT STA PRN Reason: Protocol Stop: 09/30/17 00:27 Last Admin: 09/30/17 00:45 Dose: 75 mg Potassium Chloride (K-Dur 20 Meq Er Tab) 40 meq PO STAT STA Stop: 09/30/17 00:47 - PA / DIRECTOR OF PUBLIC HEALTH / Resident Statement THI has reviewed & agrees with the documentation as recorded. <Addison Stephen - Last Filed: 09/30/17 01:59> - PA / DIRECTOR OF PUBLIC HEALTH / Resident Statement THI has reviewed & agrees with the documentation as recorded. <Osbaldo Dick - Last Filed: 09/30/17 02:17> Disposition/Present on Arrival <Addison Stephen - Last Filed: 09/30/17 01:59> - Present on Arrival Any Indicators Present on Arrival: No History of DVT/PE: No History of Uncontrolled Diabetes: No Urinary Catheter: No History of Decub. Ulcer: No History Surgical Site Infection Following: None - Disposition Have Diagnosis and Disposition been Completed?: Yes Disposition Time: 00:27 <Osbaldo Dick - Last Filed: 09/30/17 02:17> - Disposition Diagnosis: Influenza, Sepsis, UTI (urinary tract infection), Pleuritic pain Disposition: AGAINST MEDICAL ADVICE Patient Problems: Current Active Problems Problem Status Onset Urinary tract infection Acute Influenza Acute Sepsis Acute Pleuritic pain Acute Condition: STABLE Discharge Instructions (ExitCare): Chest Pain (ED), Sepsis (ED) Additional Instructions: YOU SIGN OUT AGAINST MEDICAL ADVICE. YOU ARE ADVISED TO STAY IN THE HOSPITAL FOR ADMISSION FOR SEPSIS AND INFLUENZA/URINARY TRACT INFECTION. you can return to the ER any time for continue of the care. you are given macrobid and tamiflu , tylenol, stay hydrated, follow up with your own pmd and infectious disease within 2 days, return to the ER for any new or worsening signs or symptoms. Prescriptions: Acetaminophen [Tylenol 325mg tab] 2 tab PO QID PRN #30 tab PRN Reason: Other Benzonatate [Tessalon Per[place]] 100 mg PO TID PRN #30 capsule PRN Reason: Other Nitrofurantoin Macrocrystals [Macrobid] 100 mg PO BID #14 cap Oseltamivir [Tamiflu] 75 mg PO BID #10 cap Referrals: Moni Chong MD [Primary Care Provider] - Follow up with primary Justino Harry MD [Medical Doctor] - Follow up with primary Forms: WORK NOTE"
[2017-09-29] MEDS ORDERED: Sodium Chloride 0.9% 1,000 ML IV STA (23:13)
[2017-09-29 23:59] LABS: BASO # 0.04 K/mm3 (0.0-2.0); BASO % 1.1 % (0.0-3.0); EOS # 0.1 (0.0-0.7); EOS % 2.3 % (1.5-5.0); GRAN # 1.27 (1.4-6.5); HEMOGLOBIN 9.7 g/dL (12.0-16.0); LYMPH # 1.6 (1.2-3.4); LYMPH % 44.2 % (22.0-35.0); MEAN CORPUSCULAR HEMOGLOBIN 27.4 pg (25.0-35.0); MEAN CORPUSCULAR HGB CONC 32.9 g/dl (31.0-37.0); MEAN PLATELET VOLUME 11.7 fl (7.0-11.0); MONO # 0.6 (0.1-0.6); MONO % 16.4 % (1.0-6.0); RBC 3.54 10^6/uL (3.5-6.1); RED CELL DISTRIBUTION WIDTH 13.8 % (11.5-14.5); WHITE BLOOD COUNT 3.5 10^3/ul (4.5-11.0)
[2017-09-30 00:13] LABS: URINE BILIRUBIN SMALL (NEGATIVE); URINE BLOOD NEGATIVE (NEGATIVE); URINE GLUCOSE (UA) NEGATIVE (NEGATIVE); URINE LEUKOCYTE ESTERASE SMALL Leu/uL (NEGATIVE); URINE PROTEIN 30 mg/dL (<30 mg/dL)
[2017-09-30 00:16] LABS: VENOUS BLOOD GAS PO2 90 mm/Hg (30-55); VENOUS BLOOD PH 7.43 (7.32-7.43)
[2017-09-30 00:17] LABS: TROPONIN I < 0.01 ng/mL
[2017-09-30 00:18] LABS: MEAN CELL VOLUME 83.3 fl (80.0-105.0)
[2017-09-30 00:21] LABS: URINE APPEARANCE SL CLOUDY (CLEAR); URINE COLOR YELLOW (YELLOW)
[2017-09-30] MEDS ORDERED: Aztreonam 1 Gm in NS 100mL 100 ML IVPB STA (00:21)
[2017-09-30 00:24] LABS: URINE RBC 0 - 2 /hpf (0-2)
[2017-09-30 00:25] LABS: URINE BACTERIA SMALL (NEG); URINE EPITHELIAL CELLS MANY /hpf (0-5)
[2017-09-30 00:28] LABS: ALB/GLOB RATIO 0.9 (1.1-1.8); ALBUMIN 3.5 g/dL (3.0-4.8); ALT/SGPT 70 U/L (7-56); AST/SGOT 71 U/L (14-36); BLOOD UREA NITROGEN 12 mg/dL (7-21); CALCIUM 8.6 mg/dL (8.4-10.5); GFR AFRICAN-AMERICAN > 60; GFR NON-AFRICAN AMERICAN > 60
[2017-09-30] MEDS ORDERED: Azithromycin 500MG/NS 250ml 500 MG/250 ML BAG IVPB STA (00:28)
[2017-09-30] MEDS ORDERED: Iodixanol 320 MG/ML 100 ML BOTTLE IV ONE (00:44)
[2017-09-30] MEDS ORDERED: Potassium Chloride 20 mEq ER Tab PO STA (00:46)
--- NOTE | 2017-09-30 02:10 | CT ---
EXAM: CT Angiography Chest With Intravenous Contrast EXAM DATE/TIME: 09/30/2017 12:32 AM CLINICAL HISTORY: 26 years old, female; Abnormal findings; Abnormal diagnostic tests; Elevated d-dimer; Additional info: Elevated dimer TECHNIQUE: Axial computed tomographic angiography images of the chest with intravenous contrast using pulmonary embolism protocol. All CT scans at this facility use one or more dose reduction techniques, viz.: automated exposure control; ma/kV adjustment per patient size (including targeted exams where dose is matched to indication; i.e. head); or iterative reconstruction technique. MIP reconstructed images were created and reviewed. Coronal and sagittal reformatted images were created and reviewed. CONTRAST: 96 mL of VISI 320 administered intravenously. COMPARISON: No relevant prior studies available. FINDINGS: Soft tissue density in the anterior mediastinum with an appearance suggestive of residual thymus. However upon reviewing prior reports, a history of lymphoma was reveal thus I would recommend correlation with prior studies as well as followup to exclude recurrent disease. There are few tiny mediastinal lymph nodes elsewhere which are enlarged by CT criteria. There are no enlarged hilar lymph nodes. The spleen is massively enlarged similar to prior. No pulmonary embolism. No aortic dissection or aneurysm. No pleural or pericardial effussions. There are 3 mm nodules in the right lung image 113 and in left lung images 138, 143, 156 similar to prior. IMPRESSION: No acute findings.
[2017-09-30 05:20] VITALS: BP 115/67; PULSE 84; RESP 18; TEMP 98.9; O2SAT 98
--- NOTE | 2017-09-30 09:26 | RAD ---
HISTORY: cough/fever COMPARISON: No prior. TECHNIQUE: Chest PA and lateral FINDINGS: LUNGS: No active pulmonary disease. PLEURA: No significant pleural effusion identified. No pneumothorax apparent. CARDIOVASCULAR: Normal. OSSEOUS STRUCTURES: No significant abnormalities. VISUALIZED UPPER ABDOMEN: Normal. OTHER FINDINGS: None. IMPRESSION: No active disease.
--- NOTE | 2017-09-30 09:30 | CARD ---
APPROVED REPORT EKG Measurement Heart [id number] <Conclusion> Normal sinus rhythm Incomplete right bundle branch block Wandering baseline
== END 2017-09-30 02:56 | disposition left against medical advice (07) ==
LOC: ED 22:58
DX: A41.9 Sepsis, unspecified organism (principal); J11.1 Influenza due to unidentified influenza virus with other respiratory manifestations; N39.0 Urinary tract infection, site not specified; R07.81 Pleurodynia; F17.210 Nicotine dependence, cigarettes, uncomplicated
CPT/HCPCS: 71046; 71275; 80053; 81001; 82550; 82803; 83615; 83735; 84484; 85025; 85378; 87040; 87086; 87804; 93005; 96361; 96365; 96367; 99285; J0456; J7040; Q9967

== ENCOUNTER 2017-11-10 22:43 | Emergency (ER) | payer OTHER ==
[2017-11-10 23:14] VITALS: RESP 18; BMI 37.3
[2017-11-10] MEDS ORDERED: DiphenhydrAMINE 12.5 mg/5 ml LIQ UD (5 ml) PO STA (23:31)
--- NOTE | 2017-11-10 23:31 | ED PDOC ---
Arrival/HPI - General Time Seen by Provider: 11/10/17 23:20 Historian: Patient - History of Present Illness Narrative History of Present Illness (Text): 11/10/17 23:30 Susanne Mistry is a 26 year old female, whose past medical history includes splenomegaly, who presents to the Emergency department complaining of left-sided flank pain for 1 day. Patient notes her left flank pain worsened after sneezing earlier today. Patient reports she has a history of seasonal allergies and states she woke up with some hives to her face. Patient denies any fever, chills, chest pain, shortness of breath, nausea, vomiting, diarrhea, urinary symptoms, back pain, neck pain, headache, dizziness, or any other complaints. Time/Duration: 24 hours Symptom Onset: Gradual Symptom Course: Unchanged Activities at Onset: Light Context: Home Past Medical History - Provider Review Nursing Documentation Reviewed: Yes - Infectious Disease Hx of Infectious Diseases: None - Past Medical History Past Medical History: No Previous - Cardiac Hx Pacemaker: No - Neurological Hx Paralysis: No - Endocrine/Metabolic Other/Comment: enlarge spleen - Hematological/Oncological Hx Blood Transfusions: No Hx Blood Transfusion Reaction: No - Integumentary Hx Eczema: Yes - Musculoskeletal/Rheumatological Hx Musculoskeletal Disorders: No - Gastrointestinal Hx Gastrointestinal Disorders: No - Genitourinary/Gynecological Hx Genitourinary Disorders: No - Psychiatric Hx Anxiety: Yes Hx Substance Use: No - Past Surgical History Past Surgical History: No Previous - Surgical History Other/Comment: MIGRAINE - Anesthesia Hx Anesthesia: No Hx Anesthesia Reactions: No Hx Malignant Hyperthermia: No - Suicidal Assessment Feels Threatened In Home Enviroment: No Family/Social History - Physician Review Nursing Documentation Reviewed: Yes Family/Social History: Unknown Family HX Smoking Status: Heavy Smoker > 10 Cigarettes Daily Hx Alcohol Use: Yes (OCCASIONAL- [place] [employer]) Hx Substance Use: No Hx Substance Use Treatment: No Allergies/Home Meds Allergies/Adverse Reactions: Allergies Penicillins Allergy (Verified 11/10/17 23:28) RASH Review of Systems - Physician Review All systems were reviewed & negative as marked: Yes - Review of Systems Constitutional: Normal. absent: Fevers Eyes: Normal ENT: Normal Respiratory: Normal. absent: SOB, Cough Cardiovascular: Normal. absent: Chest Pain Gastrointestinal: Normal. absent: Abdominal Pain, Diarrhea, Nausea, Vomiting Genitourinary Female: Normal. absent: Dysuria, Frequency, Hematuria, Urine Output Changes Musculoskeletal: Back Pain. absent: Neck Pain Skin: Rash (+hives) Neurological: Normal. absent: Headache, Dizziness Endocrine: Normal Hemo/Lymphatic: Normal Psychiatric: Normal Physical Exam Vital Signs Reviewed: Yes Vital Signs Temp Pulse Resp BP Pulse Ox 11/11/17 04:05 98.4 F 80 18 125/72 99 11/11/17 03:00 98.4 F 80 18 125/72 99 11/10/17 23:29 98.6 F 83 18 121/70 100 11/10/17 23:11 98.6 F 98 H 18 121/75 99 Temperature: Afebrile Blood Pressure: Normal Pulse: Regular Respiratory Rate: Normal Appearance: Positive for: Well-Appearing, Non-Toxic, Comfortable Pain Distress: None Mental Status: Positive for: Alert and Oriented X 3 - Systems Exam Head: Present: Atraumatic, Normocephalic Pupils: Present: PERRL Extroacular Muscles: Present: EOMI Conjunctiva: Present: Normal Mouth: Present: Moist Mucous Membranes Neck: Present: Normal Range of Motion Respiratory/Chest: Present: Clear to Auscultation, Good Air Exchange. No: Respiratory Distress, Accessory Muscle Use Cardiovascular: Present: Regular Rate and Rhythm, Normal S1, S2. No: Murmurs Abdomen: No: Tenderness, Distention, Peritoneal Signs Back: Present: Normal Inspection Upper Extremity: Present: Normal Inspection. No: Cyanosis, Edema Lower Extremity: Present: Normal Inspection. No: Edema Neurological: Present: GCS=15, CN II-XII Intact, Speech Normal Skin: Present: Warm, Dry, Normal Color. No: Rashes Psychiatric: Present: Alert, Oriented x 3, Normal Insight, Normal Concentration Medical Decision Making ED Course and Treatment: 11/10/17 23:30 Impression: 26 year old female complaining of left flank pain. Plan: -- CT Abdomen and Pelvis with IV contrast -- Labs -- Urinalysis -- Benadryl -- Reassess and disposition Prior Visits: Notes and results from previous visits were reviewed. Progress Notes: 11/11/17 03:54 CT Abdomen and Pelvis shows: Lung bases: Stable 3 mm right middle lobe pulmonary nodule. Stable 3 mm left lung base pulmonary nodule. ABDOMEN: Liver: There is diffuse mild enlargement of the liver measuring 20.9 cm. Gallbladder and bile ducts: Unremarkable. No calcified stones. No ductal dilation. Pancreas: Unremarkable. No mass. No ductal dilation. Spleen: Unremarkable. No splenomegaly. Adrenals: Unremarkable. No mass. Kidneys and ureters: Unremarkable. No solid mass. No hydronephrosis. Stomach and bowel: The stomach is distended fluid and air. No obstruction. No mucosal thickening. There is no wall thickening or pericolonic stranding to suggest colitis. PELVIS: Appendix: A normal appendix is identified. Bladder: Unremarkable. No mass. Reproductive: Unremarkable as visualized. ABDOMEN and PELVIS: Intraperitoneal space: Unremarkable. No free air. No significant fluid collection. Bones/joints: No acute fracture. No dislocation. Soft tissues: Unremarkable. Vasculature: The spleen is markedly enlarged measuring 16.5 cm. There are splenic varices present. Lymph nodes: There are multiple mildly enlarged mesenteric lymph nodes in the abdomen and pelvis. There is a 2.2 cm right lower quadrant mesenteric lymph nodes. There is a 2 cm left paraaortic lymph node at the level of the renal hilum. Multiple small bilateral inguinal lymph nodes. No significant interval change. IMPRESSION: Marked splenomegaly with splenic varices, unchanged. Diffuse abdominal and pelvic adenopathy consistent with patient's known history of lymphoma, unchanged. Mild hepatomegaly. 11/11/17 03:55 On re-evaluation, patient feels better and is in no acute distress. I have discussed the results and plan with the patient, who expresses understanding. Patient in agreement with plan to be discharged home. Patient is stable for discharge. Patient was instructed to follow up with physician or return if symptoms worsen or new concerning symptoms arise. - Lab Interpretations Lab Results: 11/10/17 23:50 11/10/17 23:50 Lab Results 11/11/17 01:40: Urine Color Yellow, Urine Appearance Clear, Urine pH 8.0, Ur Specific [place] 1.020, Urine Protein Trace H, Urine Glucose (UA) Negative, Urine Ketones Negative, Urine Blood Negative, Urine Nitrate Negative, Urine Bilirubin Negative, Urine Urobilinogen 2.0 H, Ur Leukocyte Esterase Negative, Urine RBC 0 - 2, Urine WBC 2 - 5, Ur Epithelial Cells 6 - 8, Urine Bacteria Small 11/10/17 23:50: Sodium 144, Potassium 4.3, Chloride 107, Carbon Dioxide 25, Anion Gap 17, BUN 14, Creatinine 0.8, Est GFR ( Amer) > 60, Est GFR (Non- Af Amer) > 60, Random Glucose 106, Calcium 8.9, Total Bilirubin 0.5, AST 27, ALT 34, Alkaline Phosphatase 42, Total Protein 8.8 H, Albumin 4.2, Globulin 4.6 , Albumin/Globulin Ratio 0.9 L 11/10/17 23:50: WBC 4.6 D, RBC 3.89, Hgb 10.6 L, Hct 31.5 L, MCV 81.0, MCH 27.2 , MCHC 33.7, RDW 17.6 H, Plt Count 126, MPV 10.4, Gran % 45.3 L, Lymph % (Auto) 43.2 H, [place] % (Auto) 7.6 H, Eos % (Auto) 3.5, Baso % (Auto) 0.4, Gran # 2.07, Lymph # (Auto) 2.0, [place] # (Auto) 0.4, Eos # (Auto) 0.2, Baso # (Auto) 0.02 I have reviewed the lab results: Yes - RAD Interpretation Radiology Orders: 11/10/17 23:31 ABD & PELVIS IV CONTRAST ONLY [CT] Stat Medical Affairs Leader: Radiologist - Medication Orders Current Medication Orders: Discontinued Medications Diphenhydramine HCl (Benadryl) 25 mg PO STAT STA Stop: 11/10/17 23:32 Last Admin: 11/10/17 23:50 Dose: 25 mg - Scribe Statement The provider has reviewed the documentation as recorded by the Sandra Page Provider Scribe Attestation: All medical record entries made by the Sandra were at my direction and personally dictated by me. I have reviewed the chart and agree that the record accurately reflects my personal performance of the history, physical exam, medical decision making, and the department course for this patient. I have also personally directed, reviewed, and agree with the discharge instructions and disposition. Disposition/Present on Arrival - Present on Arrival Any Indicators Present on Arrival: No History of DVT/PE: No History of Uncontrolled Diabetes: No Urinary Catheter: No History Surgical Site Infection Following: None - Disposition Have Diagnosis and Disposition been Completed?: Yes Diagnosis: Left sided abdominal pain, Allergic reaction Disposition: HOME/ ROUTINE Disposition Time: 03:55 Condition: GOOD Discharge Instructions (ExitCare): Seasonal Allergies (DC), Acute Abdomen ( Belly Pain), Adult (DC) Referrals: Moni Chong MD [Primary Care Provider] - Follow up with primary Yassine Moore [Non-Staff] - Follow up with primary Stephen Frye MD [Medical Doctor] - Follow up with primary Karri Hale MD [Medical Doctor] - Follow up with primary Forms: [employer] ([place])
[2017-11-11 00:23] LABS: BASO # 0.02 K/mm3 (0.0-2.0); BASO % 0.4 % (0.0-3.0); EOS # 0.2 (0.0-0.7); EOS % 3.5 % (1.5-5.0); GRAN # 2.07 (1.4-6.5); GRAN % 45.3 % (50.0-68.0); HEMOGLOBIN 10.6 g/dL (12.0-16.0); LYMPH % 43.2 % (22.0-35.0); MEAN CORPUSCULAR HEMOGLOBIN 27.2 pg (25.0-35.0); MEAN CORPUSCULAR HGB CONC 33.7 g/dl (31.0-37.0); MEAN PLATELET VOLUME 10.4 fl (7.0-11.0); MONO # 0.4 (0.1-0.6); MONO % 7.6 % (1.0-6.0); RBC 3.89 10^6/uL (3.5-6.1); RED CELL DISTRIBUTION WIDTH 17.6 % (11.5-14.5); WHITE BLOOD COUNT 4.6 10^3/ul (4.5-11.0)
[2017-11-11 00:30] LABS: ALB/GLOB RATIO 0.9 (1.1-1.8); ALBUMIN 4.2 g/dL (3.0-4.8); ALT/SGPT 34 U/L (7-56); AST/SGOT 27 U/L (14-36); BLOOD UREA NITROGEN 14 mg/dL (7-21); CALCIUM 8.9 mg/dL (8.4-10.5); GFR AFRICAN-AMERICAN > 60; GFR NON-AFRICAN AMERICAN > 60
[2017-11-11] MEDS ORDERED: Iohexol 350 MG/100 ML VIAL ONE (00:35)
[2017-11-11 03:26] LABS: URINE BILIRUBIN NEGATIVE (NEGATIVE); URINE BLOOD NEGATIVE (NEGATIVE); URINE GLUCOSE (UA) NEGATIVE (NEGATIVE); URINE LEUKOCYTE ESTERASE NEGATIVE Leu/uL (NEGATIVE); URINE PROTEIN TRACE mg/dL (<30 mg/dL)
[2017-11-11 03:30] LABS: URINE APPEARANCE CLEAR (CLEAR); URINE COLOR YELLOW (YELLOW)
--- NOTE | 2017-11-11 03:39 | CT ---
EXAM: CT Abdomen and Pelvis With Intravenous Contrast CLINICAL HISTORY: 26 years old, female; Pain; Abdominal pain; Flank; Left upper quadrant (luq); Additional info: Luq pain TECHNIQUE: Axial computed tomography images of the abdomen and pelvis with intravenous contrast. All CT scans at this facility use one or more dose reduction techniques, viz.: automated exposure control; ma/kV adjustment per patient size (including targeted exams where dose is matched to indication; i.e. head); or iterative reconstruction technique. Coronal and sagittal reformatted images were created and reviewed. CONTRAST: 96 mL of OMNI 350 administered intravenously. COMPARISON: CT - ABD PELVIS W/O PO OR IV CONT 2017-09-17 21:18 FINDINGS: Lung bases: Stable 3 mm right middle lobe pulmonary nodule. Stable 3 mm left lung base pulmonary nodule. ABDOMEN: Liver: There is diffuse mild enlargement of the liver measuring 20.9 cm. Gallbladder and bile ducts: Unremarkable. No calcified stones. No ductal dilation. Pancreas: Unremarkable. No mass. No ductal dilation. Spleen: Unremarkable. No splenomegaly. Adrenals: Unremarkable. No mass. Kidneys and ureters: Unremarkable. No solid mass. No hydronephrosis. Stomach and bowel: The stomach is distended fluid and air. No obstruction. No mucosal thickening. There is no wall thickening or pericolonic stranding to suggest colitis. PELVIS: Appendix: A normal appendix is identified. Bladder: Unremarkable. No mass. Reproductive: Unremarkable as visualized. ABDOMEN and PELVIS: Intraperitoneal space: Unremarkable. No free air. No significant fluid collection. Bones/joints: No acute fracture. No dislocation. Soft tissues: Unremarkable. Vasculature: The spleen is markedly enlarged measuring 16.5 cm. There are splenic varices present. Lymph nodes: There are multiple mildly enlarged mesenteric lymph nodes in the abdomen and pelvis. There is a 2.2 cm right lower quadrant mesenteric lymph nodes. There is a 2 cm left para-aortic lymph node at the level of the renal hilum. Multiple small bilateral inguinal lymph nodes. No significant interval change. IMPRESSION: Marked splenomegaly with splenic varices, unchanged. Diffuse abdominal and pelvic adenopathy consistent with patient's known history of lymphoma, unchanged. Mild hepatomegaly.
[2017-11-11 03:48] LABS: URINE RBC 0 - 2 /hpf (0-2)
[2017-11-11 03:49] LABS: URINE BACTERIA SMALL (NEG)
[2017-11-11 04:04] VITALS: BP 125/72; PULSE 80; TEMP 98.4; O2SAT 99
== END 2017-11-11 04:05 | disposition home or self-care (01) ==
LOC: ED 22:43
DX: T78.49XA Other allergy, initial encounter (principal); X58.XXXA Exposure to other specified factors, initial encounter; R10.9 Unspecified abdominal pain; R16.1 Splenomegaly, not elsewhere classified
CPT/HCPCS: 74177; 80053; 81001; 85025; 99283; Q9967

== ENCOUNTER 2017-12-17 01:02 | Emergency (ER) | payer OTHER ==
[2017-12-17 01:03] VITALS: BMI 37.3
[2017-12-17 01:39] VITALS: RESP 18; TEMP 98.4; O2SAT 98
--- NOTE | 2017-12-17 01:45 | ED PDOC ---
Arrival/HPI - General Chief Complaint: Trauma Time Seen by Provider: 12/17/17 01:34 Historian: Patient - History of Present Illness Narrative History of Present Illness (Text): 12/17/17 01:39 26 year old female presents to the Emergency department status post a mechanical fall just prior to arrival. Patient initially thought she had lymphoma but biopsies were inconclusive. Then, she thought she may possibly have a connective tissue disease but she has not yet seen a kiln charger; her appointment is in January. Patient also has an enlarged spleen. Today, while the patient was coming home she tripped on uneven sidewalk and fell on a pile of wood. Patient states she landed on her spleen and thinks she may have "burst it. " Patient is complaining of pain to her left sided abdomen and left sided back. Patient denies any fever, chills, chest pain, shortness of breath, nausea, vomiting, diarrhea, urinary symptoms, neck pain, headache, dizziness, or any other complaints. Dr. Tobar Time/Duration: Prior to Arrival Symptom Onset: Sudden Symptom Course: Unchanged Context: Walking, Tripped Past Medical History - Provider Review Nursing Documentation Reviewed: Yes - Infectious Disease Hx of Infectious Diseases: None - Past Medical History Past Medical History: No Previous - Cardiac Hx Pacemaker: No - Neurological Hx Paralysis: No - Endocrine/Metabolic Other/Comment: enlarge spleen - Hematological/Oncological Hx Blood Transfusions: No Hx Blood Transfusion Reaction: No - Integumentary Hx Eczema: Yes - Musculoskeletal/Rheumatological Hx Musculoskeletal Disorders: No - Gastrointestinal Hx Gastrointestinal Disorders: No - Genitourinary/Gynecological Hx Genitourinary Disorders: No - Psychiatric Hx Anxiety: Yes Hx Substance Use: No - Past Surgical History Past Surgical History: No Previous - Surgical History Other/Comment: MIGRAINE - Anesthesia Hx Anesthesia: No Hx Anesthesia Reactions: No Hx Malignant Hyperthermia: No - Suicidal Assessment Feels Threatened In Home Enviroment: No Family/Social History - Physician Review Nursing Documentation Reviewed: Yes Family/Social History: Unknown Family HX Smoking Status: Heavy Smoker > 10 Cigarettes Daily Hx Alcohol Use: Yes (OCCASIONAL- [place] [employer]) Hx Substance Use: No Hx Substance Use Treatment: No Allergies/Home Meds Allergies/Adverse Reactions: Allergies Penicillins Allergy (Verified 11/10/17 23:28) RASH Review of Systems - Physician Review All systems were reviewed & negative as marked: Yes - Review of Systems Constitutional: absent: Fevers, Night Sweats Respiratory: absent: SOB Cardiovascular: absent: Chest Pain Gastrointestinal: Abdominal Pain (left sided). absent: Diarrhea, Nausea, Vomiting Genitourinary Female: absent: Dysuria Musculoskeletal: Back Pain (left sided). absent: Neck Pain Neurological: absent: Headache, Dizziness Physical Exam Vital Signs Reviewed: Yes Vital Signs Temp Pulse Resp BP Pulse Ox 12/17/17 01:38 98.4 F 96 H 18 106/62 98 Temperature: Afebrile Blood Pressure: Normal Pulse: Tachycardic Respiratory Rate: Normal Appearance: Positive for: Well-Appearing, Non-Toxic, Comfortable Pain Distress: None Mental Status: Positive for: Alert and Oriented X 3 - Systems Exam Head: Present: Atraumatic, Normocephalic Pupils: Present: PERRL Extroacular Muscles: Present: EOMI Conjunctiva: Present: Normal Mouth: Present: Moist Mucous Membranes Neck: Present: Normal Range of Motion Respiratory/Chest: Present: Clear to Auscultation, Good Air Exchange, Tender to Palpation (left rib tenderness). No: Respiratory Distress, Accessory Muscle Use Cardiovascular: Present: Regular Rate and Rhythm, Normal S1, S2. No: Murmurs Abdomen: No: Tenderness, Distention, Peritoneal Signs Back: Present: Other (left sided mid/lower back tenderness) Upper Extremity: Present: Normal Inspection. No: Cyanosis, Edema Lower Extremity: Present: Normal Inspection. No: Edema Neurological: Present: GCS=15, CN II-XII Intact, Speech Normal Skin: Present: Warm, Dry, Normal Color. No: Rashes Psychiatric: Present: Alert, Oriented x 3, Normal Insight, Normal Concentration Medical Decision Making ED Course and Treatment: 12/17/17 01:47 Impression: 26 year old female presents to the Emergency department complaining of left sided abdominal and back pain following a mechanical fall. Plan: -- CT scan of the abdomen and pelvis -- Urinalysis, urine test -- Labs -- Reassess and disposition Prior Visits: Notes and results from previous visits were reviewed. Patient was last seen in the emergency department on 11/10/17, was diagnosed with Left sided abdominal pain, Allergic reaction, and was discharged home. Progress Notes: - Lab Interpretations Lab Results: 12/17/17 01:50 12/17/17 01:50 Lab Results 12/17/17 01:50: Blood Type A POSITIVE, Antibody Screen Negative, BBK History Checked Patient has bt 12/17/17 01:50: Sodium 143, Potassium 3.8, Chloride 108 H, Carbon Dioxide 24, Anion Gap 15, BUN 14, Creatinine 0.6 L, Est GFR ( Amer) > 60, Est GFR ( Non-Af Amer) > 60, Random Glucose 104, Calcium 9.4, Total Bilirubin 0.4, AST 27 , ALT 30, Alkaline Phosphatase 46, Total Protein 9.1 H, Albumin 4.3, Globulin 4.8, Albumin/Globulin Ratio 0.9 L 12/17/17 01:50: Urine Color Yellow, Urine Appearance Clear, Urine pH 6.0, Ur Specific [place] >= 1.030, Urine Protein Negative, Urine Glucose (UA) Negative, Urine Ketones Negative, Urine Blood Negative, Urine Nitrate Negative, Urine Bilirubin Negative, Urine Urobilinogen 0.2, Ur Leukocyte Esterase Negative 12/17/17 01:50: PT 14.3 H, INR 1.25 H 12/17/17 01:50: WBC 5.7 D, RBC 3.84, Hgb 10.8 L, Hct 31.8 L, MCV 82.8, MCH 28.1 , MCHC 34.0, RDW 16.1 H, Plt Count 122, MPV 10.2, Gran % 51.6, Lymph % (Auto) 33.5, [place] % (Auto) 9.9 H, Eos % (Auto) 4.8, Baso % (Auto) 0.2, Gran # 2.92, Lymph # (Auto) 1.9, [place] # (Auto) 0.6, Eos # (Auto) 0.3, Baso # (Auto) 0.01 - RAD Interpretation Narrative RAD Interpretations (Text): 12/17/17 04:04 CT Abdomen and Pelvis With Intravenous Contrast FINDINGS: Lower thorax: Small nodules at the left lung base measuring up to 4 mm. ABDOMEN: Liver: Normal. No mass. Gallbladder and bile ducts: Normal. No calcified stones. No ductal dilation. Pancreas: Normal. No ductal dilation. Spleen: Enlarged spleen measuring up to 18 cm in craniocaudad length. Adrenals: Normal. No mass. Kidneys and ureters: Normal. No hydronephrosis. Stomach and bowel: Normal. No obstruction. No mucosal thickening. Appendix: Normal. No findings to suggest acute appendicitis. PELVIS: Bladder: Unremarkable as visualized. Reproductive: Unremarkable as visualized. ABDOMEN and PELVIS: Intraperitoneal space: Small volume pelvic fluid which is dense and could be reflective of hemorrhage. Bones/joints: No acute fracture. No dislocation. Soft tissues: Unremarkable. Vasculature: Normal. No abdominal aortic aneurysm. Lymph nodes: Prominent right lower quadrant and retroperitoneal lymph nodes. IMPRESSION: 1. Enlarged spleen without evidence for rupture. 2. Small volume pelvic fluid which is dense and could be reflective of hemorrhage. 3. Prominent right lower quadrant and retroperitoneal lymph nodes. Radiology Orders: 12/17/17 01:34 ABD & PELVIS IV CONTRAST ONLY [CT] Stat - Scribe Statement The provider has reviewed the documentation as recorded by the Valorieibfiorella Shultz Provider Scribe Attestation: All medical record entries made by the Scribe were at my direction and personally dictated by me. I have reviewed the chart and agree that the record accurately reflects my personal performance of the history, physical exam, medical decision making, and the department course for this patient. I have also personally directed, reviewed, and agree with the discharge instructions and disposition. Disposition/Present on Arrival - Present on Arrival Any Indicators Present on Arrival: No History of DVT/PE: No History of Uncontrolled Diabetes: No Urinary Catheter: No History of Decub. Ulcer: No History Surgical Site Infection Following: None - Disposition Have Diagnosis and Disposition been Completed?: Yes Diagnosis: Fall, Contusion, trunk, Enlargement of spleen Disposition: HOME/ ROUTINE Disposition Time: 04:10 Patient Plan: Discharge Condition: GOOD Discharge Instructions (ExitCare): Contusion (DC) Additional Instructions: Susanne - Sorry you are going through all this right now. Try to be patient. The worst part of any process is the not knowing. Follow up with your doctors as planned. Return to us if any problems at all. Best- Dr. Bill Tyler Referrals: Nathanael Schroeder JD, MD [Primary Care Provider] - Follow up with primary Forms: [employer] (Citizen Of [place])
[2017-12-17 02:09] LABS: URINE BILIRUBIN NEGATIVE (NEGATIVE); URINE BLOOD NEGATIVE (NEGATIVE); URINE GLUCOSE (UA) NEGATIVE (NEGATIVE); URINE LEUKOCYTE ESTERASE NEGATIVE Leu/uL (NEGATIVE); URINE PROTEIN NEGATIVE mg/dL (<30 mg/dL); URINE UROBILINOGEN 0.2 E.U./dL (<1 E.U./dL)
[2017-12-17 02:11] LABS: INR 1.25 (0.93-1.08); PROTHROMBIN TIME 14.3 SECONDS (9.4-12.5)
[2017-12-17 02:13] LABS: BASO # 0.01 K/mm3 (0.0-2.0); BASO % 0.2 % (0.0-3.0); EOS # 0.3 (0.0-0.7); EOS % 4.8 % (1.5-5.0); GRAN # 2.92 (1.4-6.5); GRAN % 51.6 % (50.0-68.0); HEMOGLOBIN 10.8 g/dL (12.0-16.0); LYMPH # 1.9 (1.2-3.4); LYMPH % 33.5 % (22.0-35.0); MEAN CELL VOLUME 82.8 fl (80.0-105.0); MEAN CORPUSCULAR HEMOGLOBIN 28.1 pg (25.0-35.0); MEAN PLATELET VOLUME 10.2 fl (7.0-11.0); MONO # 0.6 (0.1-0.6); MONO % 9.9 % (1.0-6.0); RBC 3.84 10^6/uL (3.5-6.1); RED CELL DISTRIBUTION WIDTH 16.1 % (11.5-14.5); URINE APPEARANCE CLEAR (CLEAR); URINE COLOR YELLOW (YELLOW); WHITE BLOOD COUNT 5.7 10^3/ul (4.5-11.0)
[2017-12-17 02:29] LABS: ALB/GLOB RATIO 0.9 (1.1-1.8); ALBUMIN 4.3 g/dL (3.0-4.8); ALT/SGPT 30 U/L (7-56); AST/SGOT 27 U/L (14-36); BLOOD UREA NITROGEN 14 mg/dL (7-21); CALCIUM 9.4 mg/dL (8.4-10.5); GFR NON-AFRICAN AMERICAN > 60
[2017-12-17] MEDS ORDERED: Iohexol 350 MG/100 ML VIAL ONE (02:32)
[2017-12-17 04:25] VITALS: BP 110/64; PULSE 84
--- NOTE | 2017-12-17 09:00 | CT ---
PROCEDURE: CT Abdomen and Pelvis with contrast HISTORY: Fall, ? Ruptured Spleen? COMPARISON: None. TECHNIQUE: Contrast dose: 100 mL Omnipaque 350 Radiation dose: Total exam DLP = 1005.17 mGy-cm. This CT exam was performed using one or more of the following dose reduction techniques: Automated exposure control, adjustment of the mA and/or kV according to patient size, and/or use of iterative reconstruction technique. FINDINGS: LOWER THORAX: Unremarkable. LIVER: Unremarkable. No gross lesion or ductal dilatation. GALLBLADDER AND BILE DUCTS: Unremarkable. PANCREAS: Unremarkable. No gross lesion or ductal dilatation. SPLEEN: Splenomegaly. The spleen measures approximately 17.7 cm in greatest dimension. This is unchanged from prior examination is consistent with the patient's known history of lymphoma. No focal mass. No evidence of laceration or subcapsular hemorrhage. ADRENALS: Unremarkable. No mass. KIDNEYS AND URETERS: Unremarkable. No hydronephrosis. No solid mass. VASCULATURE: Unremarkable. No aortic aneurysm. BOWEL: Unremarkable. No obstruction. No gross mural thickening. APPENDIX: Normal appendix. PERITONEUM: Trace fluid in cul-de-sac. LYMPH NODES: There is retroperitoneal, pelvic and mesenteric lymphadenopathy consistent with known history of lymphoma. BLADDER: Unremarkable. REPRODUCTIVE: Normal uterus. 2 cm ovoid irregularly-shaped peripherally enhancing right ovarian structure, likely a ruptured or involuting follicular cyst. BONES: No acute fracture. OTHER FINDINGS: None. IMPRESSION: No evidence of splenic rupture laceration or subcapsular hemorrhage. Splenomegaly. Lymphadenopathy involving retroperitoneum, pelvic and mesenteric nodes. Probable involuting or ruptured right ovarian follicular cyst. Otherwise unremarkable examination. Preliminary interpretation of this examination was reported by Danal d/b/a [employer] at 4:04 a.m. on 12/17/2017. There is concurrence of this report with the preliminary interpretation.
== END 2017-12-17 04:20 | disposition home or self-care (01) ==
LOC: ED 01:02
DX: S20.20XA Contusion of thorax, unspecified, initial encounter (principal); W01.0XXA Fall on same level from slipping, tripping and stumbling without subsequent striking against object, initial encounter; Y92.480 Sidewalk as the place of occurrence of the external cause; F17.210 Nicotine dependence, cigarettes, uncomplicated
CPT/HCPCS: 74177; 80053; 81003; 81025; 85025; 85610; 86850; 86900; 99285; Q9967

== ENCOUNTER 2017-12-21 19:57 | Emergency (ER) | payer OTHER ==
[2017-12-21 20:06] VITALS: BMI 36.9
[2017-12-21 20:09] VITALS: RESP 18; TEMP 98.2; O2SAT 99
[2017-12-21] MEDS ORDERED: Sodium Chloride 0.9% 1,000 ML IV STA (20:36)
[2017-12-21] MEDS ORDERED: Morphine 2 mg/2 mL syringe IVP STA (20:38)
[2017-12-21 20:43] LABS: URINE BILIRUBIN SMALL (NEGATIVE); URINE BLOOD NEGATIVE (NEGATIVE); URINE GLUCOSE (UA) NEGATIVE (NEGATIVE); URINE LEUKOCYTE ESTERASE NEGATIVE Leu/uL (NEGATIVE); URINE PROTEIN 30 mg/dL (<30 mg/dL)
[2017-12-21 20:44] LABS: URINE APPEARANCE SL CLOUDY (CLEAR); URINE COLOR YELLOW (YELLOW)
[2017-12-21 21:05] LABS: URINE BACTERIA MOD (NEG); URINE EPITHELIAL CELLS MANY /hpf (0-5); URINE RBC NEGATIVE /hpf (0-2)
--- NOTE | 2017-12-21 21:07 | ED PDOC ---
Arrival/HPI <Addison Sesay - Last Filed: 12/21/17 23:51> - General Historian: Patient - History of Present Illness Time/Duration: Other (4 days worsening) Symptom Onset: Gradual Symptom Course: Worsening Quality: Other (pinching) <Megan Barker - Last Filed: 12/22/17 02:56> - General Chief Complaint: Abdominal Pain Time Seen by Provider: 12/21/17 20:00 - History of Present Illness Narrative History of Present Illness (Text): 12/21/17 21:03 26yr old female presents today with left sided upper abdominal pain that has been worsening over the past 4 days. Patient states she's been having on and off abdominal pain for about a month that since her recent injury the pain has seemed to worsen. Patient finds that the pain is worse when she tries to eat. She denies fevers or chills. Patient states the pain radiates to the left flank. She denies urinary frequency or hematuria. She denies nauseousor vomiting but is complaining of diarrhea. She denies dizziness or weakness. Patient states she had a history of trauma on 626 or she fell and landed on her abdomen. Patient has not taken any medications for pain at home. Patient rates the pain as an 8 out of 10 "pinching pain". (Megan Barker) Past Medical History - Provider Review Nursing Documentation Reviewed: Yes - Travel History Have you recently traveled outside [place] w/in the past 3 mons?: No - Infectious Disease Hx of Infectious Diseases: None - Reproductive Menopause: No - Past Medical History Past Medical History: No Previous - Cardiac Hx Pacemaker: No - Neurological Hx Paralysis: No - Endocrine/Metabolic Other/Comment: enlarge spleen - Hematological/Oncological Hx Blood Transfusions: No Hx Blood Transfusion Reaction: No - Integumentary Hx Eczema: Yes - Musculoskeletal/Rheumatological Hx Musculoskeletal Disorders: No - Gastrointestinal Hx Gastrointestinal Disorders: No - Genitourinary/Gynecological Hx Genitourinary Disorders: No - Psychiatric Hx Anxiety: Yes Hx Substance Use: No - Past Surgical History Past Surgical History: No Previous - Surgical History Other/Comment: MIGRAINE - Anesthesia Hx Anesthesia: No Hx Anesthesia Reactions: No Hx Malignant Hyperthermia: No - Suicidal Assessment Feels Threatened In Home Enviroment: No <Megan Barker - Last Filed: 12/22/17 02:56> Family/Social History - Physician Review Nursing Documentation Reviewed: Yes Family/Social History: Unknown Family HX Smoking Status: Heavy Smoker > 10 Cigarettes Daily Hx Alcohol Use: Yes (OCCASIONAL- [place] [employer]) Hx Substance Use: No Hx Substance Use Treatment: No <Megan Barker - Last Filed: 12/22/17 02:56> Allergies/Home Meds <Addison Sesay - Last Filed: 12/21/17 23:51> <Megan Barker Vargas - Last Filed: 12/22/17 02:56> Allergies/Adverse Reactions: Allergies Penicillins Allergy (Verified 11/10/17 23:28) RASH Review of Systems - Review of Systems Constitutional: absent: Fatigue, Fevers Respiratory: absent: SOB, Cough Cardiovascular: absent: Chest Pain, Palpitations Gastrointestinal: Abdominal Pain, Diarrhea. absent: Constipation, Nausea, Vomiting Genitourinary Female: absent: Dysuria, Frequency, Hematuria, Vaginal Bleeding, Vaginal Discharge Musculoskeletal: Back Pain. absent: Arthralgias, Neck Pain Skin: absent: Rash, Pruritis Neurological: absent: Headache, Dizziness Psychiatric: absent: Anxiety, Depression <Megan Barker - Last Filed: 12/22/17 02:56> Physical Exam Vital Signs Reviewed: Yes Temperature: Afebrile Blood Pressure: Normal Pulse: Regular Respiratory Rate: Normal Appearance: Positive for: Well-Appearing, Non-Toxic, Comfortable Pain Distress: None Mental Status: Positive for: Alert and Oriented X 3 - Systems Exam Head: Present: Atraumatic, Normocephalic Mouth: Present: Moist Mucous Membranes Neck: Present: Normal Range of Motion Respiratory/Chest: Present: Clear to Auscultation, Good Air Exchange. No: Respiratory Distress, Accessory Muscle Use Cardiovascular: Present: Regular Rate and Rhythm, Normal S1, S2. No: Murmurs Abdomen: Present: Tenderness (LUQ tenderness), Normal Bowel Sounds. No: Distention, Peritoneal Signs, Rebound, Guarding Back: Present: Normal Inspection, Other (no ecchymosis). No: CVA Tenderness, Midline Tenderness, Paraspinal Tenderness Upper Extremity: Present: Normal Inspection. No: Cyanosis, Edema Lower Extremity: Present: Normal Inspection. No: Edema Neurological: Present: GCS=15, Speech Normal Skin: Present: Warm, Dry, Normal Color. No: Rashes Psychiatric: Present: Alert, Oriented x 3 <Megan Barker Vargas - Last Filed: 12/22/17 02:56> Vital Signs Temp Pulse Resp BP Pulse Ox 12/21/17 20:06 98.2 F 72 18 126/78 99 Medical Decision Making <Addison Sesay - Last Filed: 12/21/17 23:51> <LuceroMegan T - Last Filed: 12/22/17 02:56> ED Course and Treatment: 12/21/17 21:12 Patient is nontoxic well appearing with stable vital signs presenting with LUQ abdominal pain pt had CT on 12/17 which showed; IMPRESSION: 1. Enlarged spleen without evidence for rupture. 2. Small volume pelvic fluid which is dense and could be reflective of hemorrhage. 3. Prominent right lower quadrant and retroperitoneal lymph nodes. case discussed with dr. sesay; pt with continued worsening pain; hx of trauma 4 days ago; will repeat ct and check labs. CBC: wnl CMP: wnl Amylase: wnl Lipase: wnl Urinalysis:+ bacteria, + wbcs CAT scan: FINDINGS: Lung bases: Multiple small 3 mm left and right lower and middle lobe lobe pulmonary nodules. ABDOMEN: Liver: There is hepatomegaly and fatty infiltration of the liver. Gallbladder and bile ducts: Contracted nonfasting gallbladder. No calcified stones. No ductal dilation. Pancreas: Unremarkable. No mass. No ductal dilation. Spleen: Moderate splenomegaly Adrenals: Unremarkable. No mass. Kidneys and ureters: Unremarkable. No solid mass. No hydronephrosis. Stomach and bowel: Stomach semi distended with semisolid food. No mucosal thickening. PELVIS: Appendix: Normal appendix Normal appendix Bladder: Unremarkable. No mass. Reproductive: Unremarkable as visualized. ABDOMEN and PELVIS: Intraperitoneal space: Small amount of free pelvic fluid likely gynecologic. No free air. Bones/joints: No acute fracture. No dislocation. Soft tissues: Unremarkable. Vasculature: Unremarkable. No abdominal aortic aneurysm. Lymph nodes: Stable non-specific mesenteric and retroperitoneal lymphadenopathy. Please correlate with prior biopsy results and workup IMPRESSION: Stable hepatosplenomegaly, lung nodules and adenopathy. Please correlate with prior workup and biopsies. In low-risk patients (minimal or absent history of smoking or other known risk factors), no follow-up is necessary. For high-risk patients (history of smoking or other known risk factors), an optional chest CT at 12 months could be performed. Patient reassessment: pt feeling better. wants to go home Discussed all results with patient in depth. advised patient of pulmonary nodules and need for follow-up with the primary care physician for monitoring and possible CAT scan of the chest. Patient states she's been having this abdominal pain for 8 months occasionally it worsens. 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 Patient was advised also to follow-up with a surgeon and GI specialist. I advised the patient that she has a urinary tract infection to take antibiotics as prescribed. Advised the patient she should return if symptoms worsen persist or if new concerning symptoms develop. Patient verbalizes understanding of discharge instructions and need for immediate followup. all aspects of this case were discussed the attending of record. Impression: Abdominal pain, UTI, pulmonary nodules Motrin every 6 hours as needed for pain Bactrim; 1 tablet twice daily x 7 days pepcid; 1 tablet daily Follow up with primary care physician within the next 2 days Follow-up with the surgeon within the next 2 days Follow up with the GI specialist within the next 2 days. Return immediately if symptoms worsen persist or if new symptoms develop: High fevers, increasing pain, vomiting, diarrhea or any other concerning symptoms develop 12/22/17 02:42 (Megan Barker) - Lab Interpretations Lab Results: 12/21/17 21:06 12/21/17 21:06 Lab Results 12/21/17 21:06: WBC 5.5, RBC 3.79, Hgb 10.7 L, Hct 31.4 L, MCV 82.8, MCH 28.2, MCHC 34.1, RDW 15.9 H, Plt Count 140, MPV 10.4, Gran % 57.4, Lymph % (Auto) 27.9 , [place] % (Auto) 9.5 H, Eos % (Auto) 4.8, Baso % (Auto) 0.4, Gran # 3.13, Lymph # (Auto) 1.5, [place] # (Auto) 0.5, Eos # (Auto) 0.3, Baso # (Auto) 0.02 12/21/17 21:06: Sodium 145, Potassium 3.5 L, Chloride 108 H, Carbon Dioxide 24, Anion Gap 17, BUN 16, Creatinine 0.7, Est GFR ( Amer) > 60, Est GFR (Non- Af Amer) > 60, Random Glucose 108, Calcium 8.8, Total Bilirubin 0.5, AST 23, ALT 13, Alkaline Phosphatase 46, Total Protein 8.6 H, Albumin 4.2, Globulin 4.4 , Albumin/Globulin Ratio 1.0 L, Amylase 78, Lipase 73 12/21/17 20:33: Urine Color Yellow, Urine Appearance Sl cloudy, Urine pH 6.0, Ur Specific [place] >= 1.030, Urine Protein 30 H, Urine Glucose (UA) Negative, Urine Ketones Negative, Urine Blood Negative, Urine Nitrate Negative, Urine Bilirubin Small H, Urine Urobilinogen 1.0 H, Ur Leukocyte Esterase Negative, Urine RBC Negative, Urine WBC 5 - 10, Ur Epithelial Cells Many, Urine Bacteria Mod - RAD Interpretation Radiology Orders: 12/21/17 20:38 ABD & PELVIS IV CONTRAST ONLY [CT] Stat 12/21/17 21:11 CHEST PORTABLE [RAD] Stat - Medication Orders Current Medication Orders: Discontinued Medications Famotidine (Pepcid) 20 mg IVP STAT STA Stop: 12/21/17 21:28 Last Admin: 12/21/17 22:15 Dose: 20 mg IVP Administration Document 12/21/17 22:15 RON (Rec: 12/21/17 23:24 RON [id number]) Charges for Administration # of IVP Administrations 1 Sodium Chloride (Sodium Chloride 0.9%) 1,000 mls @ 999 mls/hr IV .Q1H1M STA Stop: 12/21/17 21:36 Last Admin: 12/21/17 21:10 Dose: 999 mls/hr eMAR Start Stop Document 12/21/17 21:10 RON (Rec: 12/21/17 21:10 RON [id number]) Intravenous Solution Start Date 12/21/17 Start Time 21:10 End Date 12/21/17 End time 22:10 Total Infusion Time 60 Morphine Sulfate (Morphine) 2 mg IVP STAT STA Stop: 12/21/17 20:39 Last Admin: 12/21/17 21:09 Dose: 2 mg IVP Administration Document 12/21/17 21:09 RON (Rec: 12/21/17 21:09 RON [id number]) Charges for Administration # of IVP Administrations 1 - PA / PIPELINES MANAGER / Resident Statement MD/DO has reviewed & agrees with the documentation as recorded. <Addison Sesay - Last Filed: 12/21/17 23:51> Disposition/Present on Arrival <Addison Sesay - Last Filed: 12/21/17 23:51> - Present on Arrival Any Indicators Present on Arrival: No History of DVT/PE: No History of Uncontrolled Diabetes: No Urinary Catheter: No History of Decub. Ulcer: No History Surgical Site Infection Following: None - Disposition Have Diagnosis and Disposition been Completed?: Yes Disposition Time: 02:30 Patient Plan: Discharge <Megan Barker - Last Filed: 12/22/17 02:56> - Disposition Diagnosis: Abdominal pain, Urinary tract infection, Pulmonary nodule Disposition: HOME/ ROUTINE Patient Problems: Current Active Problems Problem Status Onset Abdominal pain Acute Pulmonary nodule Acute Urinary tract infection Acute Condition: GOOD Discharge Instructions (ExitCare): Urinary Tract Infections in Adults, Acute Abdomen (Belly Pain), Adult (DC) Additional Instructions: Motrin every 6 hours as needed for pain Bactrim; 1 tablet twice daily x 7 days pepcid; 1 tablet daily Follow up with primary care physician within the next 2 days Follow-up with the surgeon within the next 2 days Follow up with the GI specialist within the next 2 days. Return immediately if symptoms worsen persist or if new symptoms develop: High fevers, increasing pain, vomiting, diarrhea or any other concerning symptoms develop Prescriptions: Famotidine [Pepcid] 20 mg PO DAILY #30 tab Ibuprofen [Motrin] 600 mg PO Q6H PRN #20 tab PRN Reason: pain/fever reduction Sulfamethoxazole/Trimethoprim [Bactrim DS 800 mg-160 mg] 1 tab PO BID #14 tab Referrals: Nathanael Schroeder JD, MD [Primary Care Provider] - Follow up with primary Philip Mcdermott MD [Staff Provider] - Follow up with primary Jacky Thompson MD [Medical Doctor] - Follow up with primary Silvio Milner MD [Staff Provider] - Follow up with primary Reji Hood MD [Staff Provider] - Follow up with primary Berlin Salinas MD [Medical Doctor] - Follow up with primary Forms: [employer] (Pakistani), WORK NOTE
[2017-12-21 21:39] LABS: BASO # 0.02 K/mm3 (0.0-2.0); BASO % 0.4 % (0.0-3.0); EOS # 0.3 (0.0-0.7); EOS % 4.8 % (1.5-5.0); GRAN # 3.13 (1.4-6.5); GRAN % 57.4 % (50.0-68.0); HEMOGLOBIN 10.7 g/dL (12.0-16.0); LYMPH # 1.5 (1.2-3.4); LYMPH % 27.9 % (22.0-35.0); MEAN CELL VOLUME 82.8 fl (80.0-105.0); MEAN CORPUSCULAR HEMOGLOBIN 28.2 pg (25.0-35.0); MEAN CORPUSCULAR HGB CONC 34.1 g/dl (31.0-37.0); MEAN PLATELET VOLUME 10.4 fl (7.0-11.0); MONO # 0.5 (0.1-0.6); MONO % 9.5 % (1.0-6.0); RBC 3.79 10^6/uL (3.5-6.1); RED CELL DISTRIBUTION WIDTH 15.9 % (11.5-14.5); WHITE BLOOD COUNT 5.5 10^3/ul (4.5-11.0)
[2017-12-21 21:54] LABS: ALBUMIN 4.2 g/dL (3.0-4.8); ALT/SGPT 13 U/L (7-56); AMYLASE 78 U/L (35-125); AST/SGOT 23 U/L (14-36); BLOOD UREA NITROGEN 16 mg/dL (7-21); CALCIUM 8.8 mg/dL (8.4-10.5); GFR AFRICAN-AMERICAN > 60; GFR NON-AFRICAN AMERICAN > 60; LIPASE 73 U/L (23-300)
[2017-12-21] MEDS ORDERED: Iohexol 350 MG/100 ML VIAL ONE (22:16)
[2017-12-22] MEDS ORDERED: Tmp-Smz 800 mg-160 mg DS Tab PO STA (02:42)
[2017-12-22 03:16] VITALS: BP 118/74; PULSE 88
--- NOTE | 2017-12-22 08:47 | CT ---
PROCEDURE: CT Abdomen and Pelvis with contrast HISTORY: Abdominal pain COMPARISON: 12/17/2017 and 11/11/[address] scans abdomen and pelvis TECHNIQUE: Contrast dose: 100 cc Omnipaque 350 Radiation dose: Total exam DLP = 801.06 mGy-cm. This CT exam was performed using one or more of the following dose reduction techniques: Automated exposure control, adjustment of the mA and/or kV according to patient size, and/or use of iterative reconstruction technique. FINDINGS: LOWER THORAX: Stable small well-circumscribed solid pulmonary nodules both bases none larger than 4 mm. LIVER: Hepatomegaly, hepatic steatosis. No focal masses GALLBLADDER AND BILE DUCTS: Unremarkable. PANCREAS: Unremarkable. No gross lesion or ductal dilatation. SPLEEN: Stable splenomegaly. Orthogonal measurements 6.2 x x14.3 x 17.2 cm. ADRENALS: Unremarkable. No mass. KIDNEYS AND URETERS: Unremarkable. No hydronephrosis. No solid mass. VASCULATURE: Unremarkable. No aortic aneurysm. BOWEL: Unremarkable. No obstruction. No gross mural thickening. APPENDIX: Normal appendix. PERITONEUM: Trace free fluid identified in the pelvis/cul de sac. LYMPH NODES: Stable retroperitoneal and mesenteric lymphadenopathy. BLADDER: Unremarkable. REPRODUCTIVE: Unremarkable uterus. Left adnexal cyst 2.4 x 3 cm. BONES: No acute fracture. OTHER FINDINGS: None. IMPRESSION: Stable hepatosplenomegaly. Stable retroperitoneal and mesenteric lymphadenopathy. Stable tiny bilateral pulmonary nodules. Concordant results (preliminary interpretation) provided by [employer]. Procedure Completed: 23:48 Preliminary ([facility]) Report: Dictated and Authenticated: 00:55 Final Interpretation: 08:45
--- NOTE | 2017-12-22 09:15 | RAD ---
HISTORY: Abdominal pain COMPARISON: 09/30/2017. FINDINGS: LUNGS: No active pulmonary disease. PLEURA: No significant pleural effusion identified, no pneumothorax apparent. CARDIOVASCULAR: Normal. OSSEOUS STRUCTURES: No significant abnormalities. VISUALIZED UPPER ABDOMEN: Normal. OTHER FINDINGS: None. IMPRESSION: No active disease. No significant interval change compared to the prior examination(s).
--- NOTE | 2017-12-22 17:03 | CARD ---
APPROVED REPORT EKG Measurement Heart [id number] <Conclusion> Normal sinus rhythm Normal ECG
== END 2017-12-22 03:17 | disposition home or self-care (01) ==
LOC: ED 19:57
DX: N39.0 Urinary tract infection, site not specified (principal); R91.1 Solitary pulmonary nodule; R10.9 Unspecified abdominal pain; F17.210 Nicotine dependence, cigarettes, uncomplicated
CPT/HCPCS: 71045; 74177; 80053; 81001; 82150; 83690; 85025; 87086; 93005; 96361; 96374; 96375; 99283; J2270; J7030; Q9967

== ENCOUNTER 2018-02-18 10:58 | Day surgery (SDC) | payer OTHER ==
[2018-02-17 10:47] VITALS: BMI 36.5
[2018-02-18 11:42] LABS: BASO # 0.02 K/mm3 (0.0-2.0); BASO % 0.4 % (0.0-3.0); EOS # 0.2 (0.0-0.7); EOS % 3.4 % (1.5-5.0); GRAN # 2.72 (1.4-6.5); HEMOGLOBIN 11.1 g/dL (12.0-16.0); LYMPH % 36.6 % (22.0-35.0); MEAN CELL VOLUME 82.1 fl (80.0-105.0); MEAN CORPUSCULAR HEMOGLOBIN 28.3 pg (25.0-35.0); MEAN CORPUSCULAR HGB CONC 34.5 g/dl (31.0-37.0); MEAN PLATELET VOLUME 9.7 fl (7.0-11.0); MONO # 0.6 (0.1-0.6); MONO % 10.6 % (1.0-6.0); RBC 3.92 10^6/uL (3.5-6.1); RED CELL DISTRIBUTION WIDTH 14.8 % (11.5-14.5); WHITE BLOOD COUNT 5.6 10^3/ul (4.5-11.0)
[2018-02-18 11:48] LABS: BLOOD UREA NITROGEN 11 mg/dL (7-21); CALCIUM 9.1 mg/dL (8.4-10.5); GFR NON-AFRICAN AMERICAN > 60; INR 1.22; PARTIAL THROMBOPLASTIN TIME 30.1 Seconds (25.1-36.5); PROTHROMBIN TIME 14.1 SECONDS (9.4-12.5)
[2018-02-18] MEDS ORDERED: Midazolam 2 MG/2 ML VIAL ONE (13:40)
[2018-02-18] MEDS ORDERED: Lidocaine Hydrochloride 1% 10 ML ONE (13:41)
[2018-02-18] MEDS ORDERED: Sodium Chloride 0.45% 1,000 ML IV SCH (14:30)
[2018-02-18] MEDS ORDERED: Midazolam 2 MG/2 ML VIAL IVP ONE (14:44)
[2018-02-18] MEDS ORDERED: Oxycodone/Acetaminophen 5/325 mg Tab ONE (14:46)
[2018-02-18] MEDS ORDERED: Morphine 4 mg/ml ISec IV ONE (15:20)
[2018-02-18] MEDS ORDERED: Morphine 4 mg/ml ISec ONE (15:22)
[2018-02-18] MEDS ORDERED: Morphine 4 mg/ml ISec IVP ONE (15:29)
--- NOTE | 2018-02-18 18:38 | CT ---
PROCEDURE: CT guided splenic biopsy. HISTORY: Hepatic splenomegaly. Extensive workup. Needs splenic biopsy. Evaluate for low-grade lymphoma. PHYSICIAN(S): William Linda MD. TECHNIQUE: The relative risks and indications of the procedure were explained to the patient and consent obtained. The patient was placed supine on the CT scanner and preliminary images through the spleen obtained. Conscious sedation and monitoring were provided throughout the procedure by a nurse. The spleen is enlarged.. A left lateral approach was selected and the area prepped and draped in the usual sterile fashion. 1% Xylocaine was used to anesthetize the skin and soft tissues. A 17-gauge guiding needle was advanced into the mid spleen away from the capsule.. Its position was confirmed with CT. Using coaxial technique, multiple core biopsies were obtained. The postprocedure images show no evidence of significant hemorrhage. IMPRESSION: 1. CT-guided splenic biopsy as described above. Specimens were sent for histology and flow cytometry.
[2018-02-18 20:01] LABS: HEMOGLOBIN 9.3 g/dL (12.0-16.0); MEAN CELL VOLUME 82.7 fl (80.0-105.0); MEAN CORPUSCULAR HEMOGLOBIN 28.3 pg (25.0-35.0); MEAN CORPUSCULAR HGB CONC 34.2 g/dl (31.0-37.0); MEAN PLATELET VOLUME 10.1 fl (7.0-11.0); RBC 3.29 10^6/uL (3.5-6.1); RED CELL DISTRIBUTION WIDTH 14.8 % (11.5-14.5); WHITE BLOOD COUNT 6.9 10^3/ul (4.5-11.0)
[2018-02-18] MEDS: Oxycodone/Acetaminophen 5/325 mg Tab PO PRN (21:20)
[2018-02-19] MEDS: Oxycodone/Acetaminophen 5/325 mg Tab PO PRN (04:09)
[2018-02-19 07:37] LABS: HEMOGLOBIN 8.7 g/dL (12.0-16.0); MEAN CELL VOLUME 82.8 fl (80.0-105.0); MEAN CORPUSCULAR HEMOGLOBIN 28.2 pg (25.0-35.0); MEAN PLATELET VOLUME 10.1 fl (7.0-11.0); RBC 3.09 10^6/uL (3.5-6.1); WHITE BLOOD COUNT 4.8 10^3/ul (4.5-11.0)
[2018-02-19 08:02] LABS: BLOOD UREA NITROGEN 11 mg/dL (7-21); CALCIUM 8.2 mg/dL (8.4-10.5); GFR NON-AFRICAN AMERICAN > 60
[2018-02-19 12:26] VITALS: BP 109/70; PULSE 95; RESP 21; TEMP 98.1
[2018-02-19 13:24] VITALS: O2SAT 98
== END 2018-02-19 14:12 | disposition home or self-care (01) ==
LOC: SDS 10:58 → 2RSO 18:36 → SDS 02-19 14:12
PROVIDERS: ATTEND Radiology Vascular & Interventional Radiology
DX: R16.2 Hepatomegaly with splenomegaly, not elsewhere classified (principal)
CPT/HCPCS: 36415 ×2; 49180; 77012; 80048 ×2; 84703; 85025; 85027 ×2; 85610; 85730; 88305; J2250; J2270; J2405; J3010; J7030 ×2

== ENCOUNTER 2018-06-26 15:17 | Outpatient (CLI) | payer OTHER | END 2018-06-26 15:18 | disposition home or self-care (01) | LOC: RAD 15:17 ==